=== PATIENT | male | born 1930 | race Caucasian/White ===

== ENCOUNTER 2018-03-28 13:51 | Inpatient (IN) ==
--- OUTSIDE RECORDS SUMMARY | 2018-03-28 15:39 | External Medical Summary | Encounter Summary ---
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); 03/28/2018 Encounter Health Patrice Buchanan MD Bladder tumor [address] [place] [id number] [place] [address] [place] [address] [phone] Social History Tobacco Use Types Packs/Day Years Used Date Never Smoker Smokeless Tobacco: Never Used Alcohol Use Drinks/Week oz/Week Comments No Sex Assigned at Date Recorded Not on file as of this encounter Last Filed Vital Signs Vital Sign Reading Time Taken Blood Pressure 108/46 03/28/2018 9:00 AM CDT Pulse 74 03/28/2018 9:00 AM CDT Temperature 36.9 C (98.5 F) 03/28/2018 9:00 AM CDT Respiratory Rate 16 03/28/2018 9:00 AM CDT Oxygen Saturation 99% 03/28/2018 9:00 AM CDT Inhaled Oxygen Concentration - - Weight 81 kg (178 lb 9.6 oz) 03/28/2018 12:08 AM CDT Height 182.9 cm (6') 03/28/2018 12:08 AM CDT Body Mass Index 24.22 03/28/2018 12:08 AM CDT in this encounter Discharge Summaries Patrice Campoverde MD - 03/24/2018 12:41 PM CDTFormatting of this note may be different from the original. [address] [id number] Discharge Summary Patient Name: Italo Tang : 1930 AGE: 88 y.o. PCP: No primary care provider on file. Reason for Admission: Bladder cancer (HCC) Admission date: 03/24/2018 Discharge date and time: Today's Date: 03/28/18 Admitting Physician: Patrice Campoverde MD Discharging Physician: Patrice Campoverde MD Discharge Diagnoses: Active Hospital Problems: Diagnosis Date Noted *Principal Problem*: Bladder cancer (HCC) [C67.9] 03/24/2018 Bladder tumor [D49.4] 03/02/2018 Tumors everywhere, in multiple tics, etc, resected large amounts 03/24/18 in OR Appears superficially invasive, but in diverticulum throughout the bladder. Resolved Hospital Problems Diagnosis Date Noted Date Resolved No resolved problems to display. Admission Condition: fair Discharge Condition: fair Consults: Physical therapy Procedures and therapies with patient's response: Hospital Course: Admitted for large TURBT as an outpatient. There was tumor everywhere, there werelarge tumors on the left bladder and multiple other tumors on the bladder wall proper and also in cellules and diverticuli of the bladder We resected them all. Initially, his urine was clear on leaving the operating room and he did not require CBI, but shortly thereafter he had some postop bleeding starting a few hours after resection requiring CBI for a couple days. He had one episode of hypotension on POD#1, with no clinical symptoms or tachycardia. STAT team evaluated and IVF bolus was all that was required to improve his blood pressure. He was clinically a bit dry on admission with very dark concentrated urine on presentation to the operating room. CBI was run for 2 days with no clot retention and it was then stopped. Hb drifted down a bit from his baseline, but he never had any clinicalsigns or symptoms of anemia. He was afebrile and otherwise VS were stable throughout stay. He wished to be made DNR and we did that for him. On postop day 3, he had CBI off for >24 hrs with no additional bleeding. VS were stable and he was tolerating PO well. Given difficult transfers and ambulation posotp, PT was consulted and recommended short term nursing or rehab placement. This was arranged and he was discharged in stable condition on 2017 Disposition / facility discharged to: Acute rehab [facility] Patient Instructions: Current Discharge Medication List START taking these medications Details docusate sodium (COLACE) 100 MG capsule Take 1 capsule (100 mg total) by mouth 2 (two) times daily. Qty: 30 capsule, Refills: 0 Associated Diagnoses: Bladder tumor; Malignant neoplasm of overlapping sites of bladder (HCC) HYDROcodone-acetaminophen (NORCO) 5-325 MG tablet Take 1 tablet by mouth every 6 (six) hours as needed for Moderate Pain. Do not exceed a daily dose of 4 tablets Qty: 30 tablet, Refills: 0 Associated Diagnoses: Bladder tumor; Malignant neoplasm of overlapping sites of bladder (HCC) oxybutynin (DITROPAN) 5 MG tablet Take 1 tablet (5 mg total) by mouth 3 (three) times daily as needed (bladder spasms). Qty: 30 tablet, Refills: 0 Associated Diagnoses: Bladder tumor; Malignant neoplasm of overlapping sites of bladder (HCC) phenazopyridine (PYRIDIUM) 100 MG tablet Take 1 tablet (100 mg total) by mouth 3 (three) times dailyas needed (buring or dysuria). Qty: 10 tablet, Refills: 0 Associated Diagnoses: Bladder tumor; Malignant neoplasm of overlapping sites of bladder (HCC) CONTINUE these medications which have NOT CHANGED Details levothyroxine (SYNTHROID) 150 MCG tablet Take 150 mcg by mouth every morning before breakfast. Activity: see sheet Diet: regular diet and encourage fluids Wound Care: see sheet, fisher care, irrigate PRN only at [facility] Follow-up with nirali in [facility] on Tuesday for possible cath removal, or if in rehab, follow up at [facility] if they are able to do fill and pull in [place] Instructions given to: Patient and family Patient teaching: See dc instructions Discharge Non-Med Orders None Total discharge time: >32 min in counseling and coordination of care Patrice Campoverde MD Electronic signature 03/27/2018 8:58 Freeman this encounter Discharge Instructions Rula Montes De Oca RN - 03/24/2018[facility] [address] [place], [place] Bladder Cancer Bladder cancer is an abnormal growth of tissue in the bladder. The bladder is the balloon-like sac in the pelvis. It collects and stores urine that comes from the kidneys through the ureters. The bladder wall is made of layers. If cancer spreads into these layers and through the wall of the bladder, it becomes more difficult to treat. What are the causes? The cause of this condition is not known. What increases the risk? The following factors may make you more likely to develop this condition: Smoking. Workplace risks (occupational exposures), such as rubber, leather, textile, dyes, chemicals, and paint. Being white. Your age. Most people with bladder cancer are over the age of 55. Being male. Having chronic bladder inflammation. Having a personal history of bladder cancer. Having a family history of bladder cancer (heredity). Having had chemotherapy or radiation therapy to the pelvis. Having been exposed to arsenic. What are the signs or symptoms? Initial symptoms of this condition include: Blood in the urine. Painful urination. Frequent bladder or urine infections. Increase in urgency and frequency of urination. Advanced symptoms of this condition include: Not being able to urinate. Low back pain on one side. Loss of appetite. Weight loss. Fatigue. Swelling in the feet. Bone pain. How is this diagnosed? This condition is diagnosed based on your medical history, a physical exam, urine tests, lab tests, imaging tests, and your symptoms. You may also have other tests or procedures done, such as: A narrow tube being inserted into your bladder through your urethra ( cystoscopy) in order to viewthe lining of your bladder for tumors. A biopsy to sample the tumor to see if cancer is present. If cancer is present, it will then be staged to determine its severity and extent. Staging is an assessment of: The size of the tumor. Whether the cancer has spread. Where the cancer has spread. It is important to know how deeply into the bladder wall cancer has grown and whether cancer has spread to any other parts of your body. Staging may require blood tests or imaging tests, such as a CT scan, MRI, bone scan, or chest X-ray. How is this treated? Based on the stage of cancer, one treatment or a combination of treatments may be recommended. The most common forms of treatment are: Surgery to remove the cancer. Procedures that may be done include transurethral resection and cystectomy. Radiation therapy. This is high-energy X-rays or other particles. This is often used in combination with chemotherapy. Chemotherapy. During this treatment, medicines are used to kill cancer cells. Immunotherapy. This uses medicines to help your own immune system destroy cancer cells. Follow these instructions at home: Take [id number] and prescription medicines only as told by your health care provider. Maintain a healthy diet. Some of your treatments might affect your appetite. Consider joining a support group. This may help you learn to cope with the stress of having bladder cancer. Tell your cancer care team if you develop side effects. They may be able to recommend ways to relieve them. Keep all follow-up visits as told by your health care provider. This is important. Where to find more information: [place] [employer]: www.cancer.org National Cancer [place] (NCI): www.cancer.gov Contact a health care provider if: You have symptoms of a urinary tract infection. These include: Fever. Chills. Weakness. Muscle aches. Abdominal pain. Frequent and intense urge to urinate. Burning feeling in the bladder or urethra during urination. Get help right away if: There is blood in your urine. You cannot urinate. You have severe pain or other symptoms that do not go away. Summary Bladder cancer is an abnormal growth of tissue in the bladder. This condition is diagnosed based on your medical history, a physical exam, urine tests, lab tests, imaging tests, and your symptoms. Based on the stage of cancer, surgery, chemotherapy, or a combination of treatments may be recommended. Consider joining a support group. This may help you learn to cope with the stress of having bladder cancer. This information is not intended to replace advice given to you by your health care provider. Make sure you discuss any questions you have with your health care provider. Document Released: 08/31/2004 Document Revised: 08/02/2017 Document Reviewed: [employer] Interactive Patient Education 2017 [employer]. Instructions for Care Following Transurethral Resection of Bladder Tumors You have just undergone a major operation. The healing process takes time and we would like for you to observe the following instructions during your initial recovery. This procedure may be done either inpatient or outpatient, depending on your specific situation. Post-op Treatments and Instructions Pain Control Our goal is to keep you comfortable. Your pain medication will be ordered as needed (prn). This is not a medication that is given to you on a schedule. If you are admitted after the procedure, ask yournurse for pain medication, as you need them. Sometimes you may experience bladder spasms, (the strong urge to urinate or strong lower abdominal cramping). You may be given antispasmodics ( bladder relaxant) either by mouth or rectally. After your catheter is removed, rectal antispasmodics are stopped to allow your bladder to return to normal tone. Your nurse will assess you frequently for pain or discomfort. However, please do not hesitate to ask for pain medication when you need it. Fisher Catheter There will be a catheter in your bladder. On some occasions, the catheter may be taped tightly to your leg or up towards your abdomen. This may be done to help control bleeding. The next morning after the doctor has seen you, depending on how clear or pink or red the urine is, the fisher may be removeddepending on how extensive the bladder surgery was. At times, you may need a catheter for a week ormore. If you are unable to urinate on your own after the catheter is removed, a catheter will be inserted to initiate the flow of urine. This catheter may or may not remain in your bladder. Intake and Output If admitted afterwards, your nurse will record fluids taken in and put out. Your may have a continuous bladder irrigation (CBI) through the catheter if you are an inpatient to help keep the urine clearand free of clots or tissue. This will be discontinued when your urine is clear. It generally will run through the night. If you do not have a continuous irrigation and should your urine become bloody,it may be necessary for the nurse to occasionally irrigate the fisher with a syringe to keep the urine clear. You may also be asked to drink about a glass of water every hour while awake to dilute the urine. All this intake and output will be recorded frequently. If you are sent home afterwards , drinklots of fluids to keep urine as clear as possible. Look at the urine in the tubing to determine clarity, not in the bag as this will always appear darker. Incentive Spirometry Purpose: To promote full lung expansion and prevent respiratory complications, which affect the bodytemperature. This will be used throughout your hospital stay. You may have been given any type of anesthesia, but all types can have an effect on your ability to take deep full breaths. Instructions for use: ? Seal the lips tightly around the mouthpiece, inhale naturally and hold your breath for 3 to 5 seconds to achieve lung expansion. Exhale and rest a few seconds. ? Each time you inhale, breath deeper trying to get the disk in the column to a higher volume and holding it as long as you can. Do this at least 10 times an hour while you are awake. ? Deep breathing exercises are also helpful. Simply take a regular breath through your mouth. Breathe out gently and completely. Then take a deep breath and hold it to the count of five. Exhale throughyour mouth and nose completely. Do this about 10 times each hour while you are awake. Sequential compression devices (SCD) Purpose: SCDs aid circulation by providing intermittent periods of compression on the lower extremities. Thisis a plastic sleeve wrapped around each leg connected to a machine that has been preset to automatically give the prescribed or recommended compression pressures that is needed to prevent blood clots from forming. This provides the same effect to your legs as walking. Instructions: The nurse will place the sleeve on both lower extremities when you return from surgery unless they have already been placed in the holding room. These must remain in place as long as you are in bed. Once ambulation begins, the SCDs are no longer necessary. There is also an exercise called plantar extension/ flexion that is important even when you are using the SCD and more important when you areup again. Plantar extension/flexion exercises Instructions: Begin with pointing your toes toward the bottom ofthe bed. Then point your toes up toward your face. Repeat this simple exercise at least 100 times anhour while awake. Ambulation: Purpose: Walking soon after surgery helps with early return of normal bowel function, promotes more effective breathing, mobilizes secretions. Improves circulation, prevents stiffness of joints, and relieves pressure. Instructions: You will be instructed to be up and about as soon as your urine begins to clear. Walking and being out of bed is good for your recovery, you should however, avoid strenuous activities asthis can start up bleeding. You will be encouraged to be out of bed at least 6 times a day, unless you are connected to CBI, or continuous bladder irrigation. This can be thought of as twice after breakfast, twice after lunch, and twice after dinner. If you wish to be up more often, that is okay. You can also continue the plantar extension/ flexion exercises as well. Diet: You will start out with liquids and progress to regular food as you tolerate it. Your IV will be sufficient enough to keep hydrated for a short time if you are admitted to the hospital. Special Considerations: The area of surgery in your bladder may take several weeks to heal. We ask that you follow these simple instructions after you are discharged. ? After the catheter is removed, it is very important to void on a regular basis to prevent the surgical area of the bladder from stretching open and causing bleeding. A good rule of thumb is to void about every 3 hours whether you feel like you have to or not. ? You may experience some temporary loss of control of urination or a dribbling of the urine after the catheter is removed. These symptoms are temporary and usually will resolve. Should this occur, it might be helpful to wear an incontinent pad. Sometimes it helps to contract and relax the sphincter frequently to re-establish urinary control, you may also try the prescribed medications to decrease spasms in the bladder. ? Avoid heavy lifting and strenuous exercises. Heavy lifting increases abdominal pressure, which could result in bleeding from your urinary tract. ? Avoid bending. This can also increase abdominal pressure. If you must pick something up, bend at your knees, not your waist. Stoop to strip picker the item. ? Avoid constipation. This will prevent unnecessary straining. To prevent constipation you can increase roughage in your diet, drink prune juice or orange juice, take milk of magnesia or some other over the counter laxative if necessary. You may be prescribed Colace when you are discharged. This is a stool softener, not a laxative. It is recommended that you drink 6-8 glasses of water a day to enhance the effectiveness of Colace. ? Try to avoid significant doses of Aspirin, Motrin, Advil, Aleve, or nonsteroidal analgesics for at4 weeks after your surgery as they may cause bleeding. If you have pain, simply take plain Tylenol.If you need to go back on blood thinners for other medical problems, please ask the doctor when thatis appropriate. ? Abstain from sexual activity for 4 weeks after surgery. ? You may see blood in the urine during the first several weeks after you are home. If so, lie down,rest, and drink fluids. The bleeding should diminish within a few hours. If not, call your doctor. ? Ask your doctor about when you may return to work. Reasons to call your doctor ? You have increased scrotal or penile swelling ? You have difficulty passing urine or a significant increase in clot passage, or your catheter becomes clogged. ? There is increased blood in your urine that does not stop with rest or increase in fluid intake ? You have pain that is not relieved by Tylenol or other prescribed pain medications ? You have chills or a fever greater than 101 degrees For urgent and emergent situations, call the number listed on your discharge paperwork. This will ring to the clinic during normal business hours and they will contact the physician for you. If after hours, call the ER or nurse line, and if an emergency, proceed to your nearest ER. Italo, your procedure went great, but there was a LOT of tumor everywhere. I resected everything that I could see. We will leave the catheter until next Tuesday and we will remove that in the clinic in [place]. Meds that I wrote you are NEEDED ONLY! Dont take them within 8 hrs of cath removal. Drink lots and make lots of pee. Fisher Catheter Care, Adult A Fisher catheter is a soft, flexible tube that is placed into the bladder to drain urine. A Fisher catheter may be inserted if: You leak urine or are not able to control when you urinate (urinary incontinence). You are not able to urinate when you need to (urinary retention). You had prostate surgery or surgery on the genitals. You have certain medical conditions, such as multiple sclerosis, dementia, or a spinal cord injury. If you are going home with a Fisher catheter in place, follow the instructions below. TAKING CARE OF THE CATHETER 1. Wash your hands with soap and water. 2. Using mild soap and warm water on a clean washcloth: Clean the area on your body closest to the catheter insertion site using a circular motion, moving away from the catheter. Never wipe toward the catheter because this could sweep bacteria up into the urethra and cause infection. Remove all traces of soap. Pat the area dry with a clean towel. For males, reposition the foreskin. 3. Attach the catheter to your leg so there is no tension on the catheter. Use adhesive tape or a leg strap. If you are using adhesive tape, remove any sticky residue left behind by the previous tape you used. 4. Keep the drainage bag below the level of the bladder, but keep it off the floor. 5. Check throughout the day to be sure the catheter is working and urine is draining freely. Make sure the tubing does not become kinked. 6. Do not pull on the catheter or try to remove it. Pulling could damage internal tissues. TAKING CARE OF THE DRAINAGE BAGS You will be given two drainage bags to take home. One is a large overnight drainage bag, and the other is a smaller leg bag that fits underneath clothing. You may wear the overnight bag at any time, but you should never wear the smaller leg bag at night. Follow the instructions below for how to empty,change , and clean your drainage bags. Emptying the Drainage Bag You must empty your drainage bag when it is ?- full or at least 2-3 times a day. 1. Wash your hands with soap and water. 2. Keep the drainage bag below your hips, below the level of your bladder. This stops urine from going back into the tubing and into your bladder. 3. Hold the dirty bag over the toilet or a clean container. 4. Open the pour spout at the bottom of the bag and empty the urine into the toilet or container. Donot let the pour spout touch the toilet, container, or any other surface. Doing so can place bacteria on the bag, which can cause an infection. 5. Clean the pour spout with a gauze pad or cotton ball that has rubbing alcohol on it. 6. Close the pour spout. 7. Attach the bag to your leg with adhesive tape or a leg strap. 8. Wash your hands well. Changing the Drainage Bag Change your drainage bag once a month or sooner if it starts to smell bad or look dirty. Below are steps to follow when changing the drainage bag. 1. Wash your hands with soap and water. 2. Pinch off the rubber catheter so that urine does not spill out. 3. Disconnect the catheter tube from the drainage tube at the connection valve. Do not let the tubestouch any surface. 4. Clean the end of the catheter tube with an alcohol wipe. Use a different alcohol wipe to clean the end of the drainage tube. 5. Connect the catheter tube to the drainage tube of the clean drainage bag. 6. Attach the new bag to the leg with adhesive tape or a leg strap. Avoid attaching the new bag too tightly. 7. Wash your hands well. Cleaning the Drainage Bag 1. Wash your hands with soap and water. 2. Wash the bag in warm, soapy water. 3. Rinse the bag thoroughly with warm water. 4. Fill the bag with a solution of white vinegar and water (1 cup vinegar to 1 qt warm water [.2 L vinegar to 1 L warm water]). Close the bag and soak it for 30 minutes in the solution. 5. Rinse the bag with warm water. 6. Hang the bag to dry with the pour spout open and hanging downward. 7. Store the clean bag (once it is dry) in a clean plastic bag. 8. Wash your hands well. PREVENTING INFECTION Wash your hands before and after handling your catheter. Take showers daily and wash the area where the catheter enters your body. Do not take baths. Replace wet leg straps with dry ones, if this applies. Do not use powders, sprays, or lotions on the genital area. Only use creams, lotions, or ointments as directed by your caregiver. For females, wipe from front to back after each bowel movement. Drink enough fluids to keep your urine clear or pale yellow unless you have a fluid restriction. Do not let the drainage bag or tubing touch or lie on the floor. Wear cotton underwear to absorb moisture and to keep your back tender pulp drier. SEEK MEDICAL CARE IF: Your urine is cloudy or smells unusually bad. Your catheter becomes clogged. You are not draining urine into the bag or your bladder feels full. Your catheter starts to leak. SEEK IMMEDIATE MEDICAL CARE IF: You have pain, swelling, redness, or pus where the catheter enters the body. You have pain in the abdomen, legs, lower back, or bladder. You have a fever. You see blood fill the catheter, or your urine is pink or red. You have nausea, vomiting, or chills. Your catheter gets pulled out. MAKE SURE YOU: Understand these instructions. Will watch your condition. Will get help right away if you are not doing well or get worse. This information is not intended to replace advice given to you by your health care provider. Make sure you discuss any questions you have with your health care provider. Document Released: 08/29/2006 Document Revised: 01/13/2015 Document Reviewed: [employer] Interactive Patient Education 2017 TPACK. in this encounter Medications at Time of Discharge Medication Sig. Disp. Refills Start Date End Date docusate sodium (COLACE) Take 1 capsule (100 30 capsule 0 03/24/2018 100 MG capsuleIndications: mg total) by mouth Bladder tumor, Malignant 2 (two) times neoplasm of overlapping daily. sites of bladder (HCC) HYDROcodone-acetaminophen Take 1 tablet by 30 tablet 0 03/24/2018 (NORCO) 5-325 MG mouth every 6 (six) tabletIndications: Bladder hours as needed for tumor, Malignant neoplasm Moderate Pain. Do of overlapping sites of not exceed a daily bladder (HCC) dose of 4 tablets levothyroxine (SYNTHROID) Take 150 mcg by 150 MCG tablet mouth every morning before breakfast. oxybutynin (DITROPAN) 5 MG Take 1 tablet (5 mg 30 tablet 0 03/24/2018 tabletIndications: Bladder total) by mouth 3 tumor, Malignant neoplasm (three) times daily of overlapping sites of as needed (bladder bladder (HCC) spasms). phenazopyridine (PYRIDIUM) Take 1 tablet (100 10 tablet 0 03/24/2018 100 MG tabletIndications: mg total) by mouth Bladder tumor, Malignant 3 (three) times neoplasm of overlapping daily as needed sites of bladder (HCC) (buring or dysuria). as of this encounter Progress Notes Brittney Ziegler RN - 03/28/2018 12:18 PM CDTThis nurse called [facility] for report and spoke with Hussein. All questions answered. Left phone number incase further questions.Brittney Ziegler RN - 03/28/2018 12:17 PM CDTPt discharging off the floor at 1218 via wheelchair. IV removed. Fisher intact. All belongings gathered and prescriptions and discharge paperwork sent with Pt son Winston.Areli Damico, CPTA - 03/28/2018 9:48 AM CDT [address] [address] Physical Therapy Patient Name: Italo Tang : 1930 Billing Number: [id number] Physician: Patrice Campoverde MD Admission Dx: Bladder cancer (HCC) Bladder cancer (HCC) Admit Date: 03/24/2018 Principal Problem: Bladder cancer (HCC) Today's Date: 03/28/2018 Physical Therapy Treatment Note S: Nursing gives permission to treat. Patient gives permission to treat. pt reports seeing spinning water/objects when entering room, declined them while walking. O: Precautions: fall risk and urinary catheter Mental Status: alert and oriented to: , month, pt thought it was 1987. knows Pain Ratin/10 Weight Bearing Status: no restrictions Bed Mobility/Transfers: Sit to stand: From recliner requiring minimal assist of 1 staff and requiring moderate assist of 1 staff and toilet requiring minimal assist of 1 staff and verbal cues for proper body mechanics and correct hand placement Stand to sit: To recliner requiring stand by assist (SBA) and toilet requiring minimal assist of 1 staff and no cues required for task Gait: Distance: 150' Device: front-wheeled walker Assist: SBA Stairs: Patient received instruction for stair negotiation to simulate home setting: no Exercise/ROM: seated hip flexion, long arch quad, hip abduction/adduction and ankle AROM Standardized Testing: N/A Patient left with call light placed within reach and pad alarm activated A: Pt ambulates with steady gait, needs help getting out of recliner. Pt did not need help standing from toilet, utilized grab bars. Pt pleasant throughout treatment. P: Continue plan of care. Goals: By the end of the patient's stay 1. Sit to Stand Goal: Patient will complete sit to stand with modified independence with front-wheeled walker to progress toward independent transfer. Progressing 03/28 2. Gait Goal: Patient will complete gait with modified independence on level surfaces with front-wheeled walker for 150 feet to progress toward independent gait. Progressing 03/28 3. Test Goal: Patient will improve score on AMPAC to 22/24 to demonstrate improved safety and independence with functional mobility tasks.. 4. Balance Goal: Patient will tolerate 3 minutes of static standing and dynamic standing balance activities with 1 upper extremity support while demonstrating good balance in order to improve independence with transfers and gait. Progressing 03/28 Discharge Recommendations: Plans: Inpatient Rehabilitation or Retirement Facility or Swingbed Projected equipment for d/c: front wheeled walker Transportation: Patient safe to transport by wheelchair. Today's charge: Therapeutic exercise 1 unit(s) Gait training 1 unit(s) Time spent with patient: [id number] Areli Damico CPTA 03/28/2018 9:48 Naty Armas OT - 03/28/2018 7:[address] [address] Occupational Therapy Patient Name: Italo F Clyde : 1930 Billing Number: [id number] Physician: Patrice Campoverde MD Admission Dx: Bladder cancer (HCC) Bladder cancer (HCC) Admit Date: 03/24/2018 Principal Problem: Bladder cancer (HCC) Today's Date: 03/28/2018 Occupational Therapy Evaluation Physician's Order: consult to OT to evaluate and treat safety deficits Primary diagnosis: Bladder Cancer Treatment diagnosis: S/P Large TURBT, 03/24/18 Date of onset: 03/24/2018 Precautions / Limitations: DNR, fall risk and urinary catheter Pain ratin/10 Patient stated goal: to go home Subjective / Past Medical History Italo Tang is a 88 y.o. male admitted for Bladder cancer (HCC). He has a past medical history of Bladder tumor, Blood transfusion without reported diagnosis, Contact dermatitis, Hearing loss, and Hypothyroidism. Patient gives permission to treat and Nursing gives permission to treat. Prior functioning level: Per patient, he has been living with spouse in a one-level house. He was independent with BADLs and does house chores but also says there is a woman that comes in 2x/week to help. 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 He reports to be driving still. He has no stairs to negotiate. He has access to laundry services provided by others. He used no assistive device for mobility. The bathroom is equipped with a walk-in shower and no grab bars. For toileting, he has a raised toilet. Patient currently uses/owns raised toilet seat. Pt sleeps in a lift recliner. Patient appears to be a questionable historian. No family present to verify the accuracy of the patient's answers. Objective Cognitive / Perceptual / Safety: Alert and oriented to person, situation, , month, location; states year as "1930", then "1959"; knows ruth; follows 1-step commands Vision / Hearing: vision: intact/functional and wears glasses for reading only and hearing: [place] Speech: intact Endurance: limited: reports fatigue Upper extremity ROM: functional bilateral upper extremities Upper extremity strength: functional bilateral upper extremities Coordination / Tone: functional Sensation: grossly intact Transfers: Mod assist for supine to sit and to scoot out to EOB; minimal assist for sit to stand; ambulated to bathroom and completed commode transfer with minimal assist ; ambulated back to recliner; pt unable tocontrol his descent into the chair; pt sleeps and spends a lot of time in his lift recliner. Balance: Sitting: good Standing: fair and needs minimal assist ADLs: Pt initially said he gets himself dressed without assist, then when asked to don /doff his socks, reports that his helps him; SBA to don gown; Fisher in place and pt is dependent for hygiene after BM; washed hands standing at sink with minimal assist for balance/safety; pt needed some set-up for breakfast ( opening packages). Testing Completed: [facility] Daily Activity Inpatient Short Form How much help from another person does the patient currently need ... 1. Putting on and taking off regular lower body clothing? 2 A lot 2. Bathing (including washing, rinsing, drying)? 2 A lot 3.Toileting, which includes using toilet, bedpan or urinal? 2 A lot 4. Putting on and taking off regular upper body clothing? 4 None 5. Taking care of personal grooming such as brushing teeth? 3 A little 6. Eating meals? 3 A little Total Score: 16 / 24 (53.32%) AM[facility] Functional Stages: Score 14-19: Score suggests some difficulty in the ability to perform daily tasks. The pt. may be struggling with things such as bathing and dressing. Housekeeping taks may be too difficult to perform. They may experience some difficulties with fine motor skills such as buttoning clothes, using utensils and combing hair. Treatment provided: evaluation Education provided: Fall prevention strategies Role of Occupational Therapy and OT Plan of Care Other Comments: returned patient to chair call light placed in reach pad alarm activated nurse (RN/CARPENTER SUPERVISOR) notified Patient's support person has demonstrated understanding of safe transfer techniques? No Patient/Family Discharge Plans: Inpatient Rehabilitation or Retirement Facility or Swingbed Assessment / Recommendations Patient presents with decreased strength, decreased safety, decreased ability to perform self-cares,decreased ability to perform functional transfers, general debilitation, decreased endurance, decreased mobility, decreased cognitive status and increased risk for falls and is appropriate for skilled Occupational Therapy to provide Self-Care Management Training, functional transfer training, adaptiveequipment instruction, endurance activities, safety training, patient/family education, therapeutic exercises, strengthening and cognitive/perceptual retraining. Occupational Therapy Discharge Recommendations: Plan: Inpatient Rehabilitation or Retirement Facility or Swingbed; pt not safe for D/C home at this time Home Needs: with assistance/supervision recommended at this time for activities of daily living and instrumental activities of daily living: money management, medication management, housekeeping, transportation, meal preparation and grocery shopping Projected equipment for d/c: Will continue to assess. Plan Expected treatment frequency of 5 times per week as staffing/scheduling allows until discharged or until goals are met. Patient is aware of and agrees with stated treatment plan and goals? Yes Patient will have support person available post discharge? Unknown Short-term Goals: (Time frame=Length of hospital stay) 1. Pt will complete LE dressing modified independent with use of adaptive equipment as needed 2. Pt will complete toilet transfer modified independent with good safety 3. Pt will be modified independent with toileting 4. Pt will stand at sink for all grooming tasks with good safety 5. Pt will tolerate BUE graded exercise to increase strength and endurance for ADLs 6. Pt will be SBA for shower transfer with good safety 7. Patient complete the Edward Cognitive Assessment to further evaluate cognition 8. Pt will increase AM-PAC Daily Living score to at least 23 out of 24 or no more than 15.86% impairment to increase patient's self care skills Charges/Time:([id number]) OT eval moderate complex Naty Tripathi OTR/L Electronically Signed 03/28/2018 8:21 AM Valeria Carballo RN - 03/27/2018 8:07 PM CDTLeadership rounds complete. Pt sitting up in chair. No questions or concerns at this time.Rula Montes De Oca RN - 03/27/2018 4:[address] [address] Case Management / Social Work Initial Assessment Patient Name: Italo Tang : 1930 Primary Care Physician: Judson Iniguez APRN Attending Provider: Patrice Campoverde MD Admission Date: 03/24/2018 Patient Status: Inpatient Anticipated Discharge Needs: 1. Pt will need rehab @ d/c - referral faxed to [facility] Discharge Plan: rehab Support system at home: Spouse/significant other Who is next of kin? - Linda Homebound status: No Does the patient drive? Yes Transportation to medical appointments? Yes Who transports you to medical appointments?: self or family Who will provide discharge transportation? facility Pharmacy patient uses: [facility] Method of prescription payment: Insurance Last reported hospitalization: None Enhanced Risk Score Is it hard for you to pay for: Housing: No Utilities: No Medication: No Food: No Medical Care: No Is it hard for you to get: Transportation for your medical care: No Other Social and Behavioral Determinants: Education Level: High School Graduate Do you exercise? Yes In a typical week, how often do you get together with friends or relatives? 5 or more How often do you attend orthodox services, social groups or clubs? Once a week ([employer]) Living arrangements prior to hospitalization: Home SNF stay in the last 30 days? No Home Health or Hospice Services: No Patient needs assistance with the following ADLs: In/Out of Bed, Ambulating Recent Fall History: Have you fallen in the past 12 months?: Yes Have you fallen 2 or more times ? : No Have you been injured from any falls in the past 12 months?: No Durable medical equipment: Assistive devices: Walker Nebulizer: No Other equipment: No Patient uses CPAP/BIPAP at home? No Patient uses home oxygen? No DME agency: Not applicable Infusion companies: Not applicable Advanced Directives (for Healthcare): Patient has healthcare directive? No, patient does not have an advance directive for healthcare treatment Information provided on healthcare directives? No Information on healthcare directives requested? No Healthcare agent appointed: No Healthcare agents name: n/a Healthcare agents phone number: n/a Social, community, recreational activities and spiritual involvement: Pt reports he lives @ home with his . Pt has 1 son Winston in [place] & a son in [place]. Pt reports his grandson Rajesh retired from 20 years and works with him and is very supportive. 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 What basic needs are being met (food, alf, safety, medication, etc.)? Yes, pt reports his basic needs are met. Note psychological and psychiatric functioning and background: Pt denies. Strengths and resources: Family. Pt is very pleasant, cooperative & independent @ baseline. Information obtained from: Patient Time Spent: Time spent in contact with patient: 15 Time spent performing coordination of care: 5 Total time spent: 20 Rula Montes De Oca RN Electronically Signed 03/27/2018 4:48 PM Esha Barajas LMSW - 03/27/2018 12:42 PM CDT Today's Date: 03/28/2018 Time: 12:27 PM Notes: Faxed referral, AVS, medication list to [facility] at [phone]. Provided pt'sson with hand-written address to take with him with address for [facility]. Pt discharged with son, who is transporting him to Acute Rehab. Communicated with: Winston-son; faxed referral, AVS, meds Discharge Plan: Facility or Service: [facility] Esha Barajas LMSW Electronically Signed Today's Date: 03/27/2018 Time: 1:00 PM Notes: NATHEN met with pt's son, Winston, to discuss Rehab placement & that once placement could be found/pt accepted, his father could be discharged. Informed Winston that pt did not meet criteria for admission to [facility] SNF at this time, but that with permission, SW could pursue AR placement either in [place] or at nearest facility to [place], [place]. Winston would [place] the [facility] [place] [facility] (37 miles from [place], [place]). NATHEN asked if TERRIE BLAKELY CM, could assist in making phone call to [facility] to inquire if facility had openings & send referral information if necessary. Communicated with: Winston-pt's son, ZORA-TERRIE PIÑA Discharge Plan: Facility or Service: placement pending Esha Barajas LMSW Electronically Signed Today's Date: 03/27/2018 Time: 9:15 AM Notes: Dr. Campoverde left message for NATHEN to discuss discharge & that pt meets all Medicare guidelines & criteria to discharge to Rehab today. Pt's son, Winston, would like for pt to discharge to [facility] SNF as pt's spouse is currently there. NATHEN returned call to Dr. Campoverde to discuss discharge plan. He states that pt would be medically stable for discharge today. SW informed him that pt would not qualify to discharge to SNF today & maybe accepted as early as 03/29, otherwise, SW could pursue Acute Rehab placement for today if pt's family agreeable. Dr. Campoverde states that he would be fine with SNF or Acute Rehab for pt & would like for SW to reach out to pt's son, Winston, to discuss his preference as he may be agreeable to AcuteRehab in [place] because he lives in [place], but he may want pt closer to his home. Communicated with: Dr. Camopverde Discharge Plan: Facility or Service: TBD Esha Barajas LMSW Electronically Signed Naty Padilla, PT - 03/27/2018 9:[address] [address] Physical Therapy Patient Name: Italo Tang : 1930 Billing Number: [id number] Physician: Patrice Campoverde MD Admit Date: 03/24/2018 Today's Date: 03/27/2018 Physical Therapy Evaluation Note Date of onset: 03/24/2018 Subjective: Nursing gives permission to treat. Patient gives permission to treat. Italo Tang is a 88 y.o. male admitted with Bladder cancer (HCC). He underwent Large TURBT on 03/24/18. Physical therapy referral due to unsteady gait and generalized weakness. He has a past medical history of Bladder tumor, Blood transfusion without reported diagnosis, Contact dermatitis, Hearing loss, and Hypothyroidism.. Baseline Activity Level: Patient lives with spouse in a one-level house with no stairs to negotiate. Patient reports that he was previously independent with transfers and gait and driving. He notes that he sleeps in a lift chair. Required assistance with dressing and IADLS from spouse. Uses no assistive device for gait. He has a front wheeled walker that he reports he uses sometimes. Patient reports 1 fall in the last year. *Patient was clearly confused during PT evaluation. Information regarding prior level of function may not be completely accurate. No family present to verify. Precautions: fall risk, IV equipment and urinary catheter Weight Bearing Status: No restrictions Mental Status: alert and confused. Oriented to name, birthdate, and city. Not oriented to [facility]. Vision: intact, reading glasses Hearing: impaired both ears. Patient wearing hearing aide in R ear only. Speech: intact and slurred Range of Motion: Lawson. feet and ankles limited by edema. Lawson. ankle dorsiflexion to grossly neutral. [place]. knees and hip remain about 20 degrees flexed when standing and ambulating. Strength: Lawosn. LEs grossly 3+/5 Neuro: grossly intact Pain Ratin/10 Bed Mobility/Transfers: Rolling left: minimum assist of 1 persons Scooting: minimum assist of 1 persons Supine to sit: moderate assist of 1 persons Sit to stand: minimum assist of 1 persons Stand to sit: minimum assist of 1 persons Gait: Distance: 30 feet Device: front-wheeled walker Assist: minimal assist of 1 staff with 2nd person managing equipment Gait deviations: decreased rosalie, decreased step length, deficits during turning, excessive trunk flexion and shuffling gait Stairs: not tested Posture: forward, rounded shoulders and kyphotic Sitting Balance: Static: fair: Patient able to maintain balance with handhold support; may require occassional minimal assistance Dynamic: fair: Patient accepts minimal challenge; able to maintain balance while turning head/trunk Standing Balance: Static: fair: Patient able to maintain balance with handhold support; may require occassional minimal assistance Dynamic: poor: Patient unable to accept challenge or move without loss of balance Other: Patient is not safe to discharge home with only spouse support with his current deficits. He requires physical assist for transfers and ambulation at this time and is a very high fall risk. Placement is recommended prior to discharge. Objective Test Performed: AM-PAC Basic Mobility Inpatient Short Form How much difficulty does the patient have ... 1. Turning over in bed (including adjusting bedclothes, sheets, and blankets)? 3 A little 2. Sitting down on and standing up from a chair with arms (wheelchair, bedside commode, etc.)? 3 A little 3. Moving from lying on back to sitting on the side of the bed? 2 A lot How much help from another person does the patient currently need .... 1. Moving to and from a bed to a chair (including wheelchair)? 2 A lot 2. Need to walk in hospital room? 2 A lot 3. Climbing 3-5 steps with a railing? 2 A lot Total Score: 14 / 24 (61.29% impaired) Additional Comments: patient remained in chair alarm set call light placed in reach nurse (RN/CARPENTER SUPERVISOR) notified that patient seemed to be having difficulty swallowing his eggs and coffee at end of PT evaluation. Assessment: Patient presents with decreased strength, decreased ROM, difficulty walking, gait abnormality, generalized weakness, impaired mobility and impaired balance. Patient Goal: Patient did not state Goals: By the end of the patient's stay 1. Sit to Stand Goal: Patient will complete sit to stand with modified independence with front-wheeled walker to progress toward independent transfer. 2. Gait Goal: Patient will complete gait with modified independence on level surfaces with front-wheeled walker for 150 feet to progress toward independent gait. 3. Test Goal: Patient will improve score on AMPAC to 22/24 to demonstrate improved safety and independence with functional mobility tasks.. 4. Balance Goal: Patient will tolerate 3 minutes of static standing and dynamic standing balance activities with 1 upper extremity support while demonstrating good balance in order to improve independence with transfers and gait. Patient agreeable to physical therapy goals: yes Discharge Recommendations: Plans: Inpatient Rehabilitation or Retirement Facility or Swingbed Projected equipment for d/c: front wheeled walker and pt. has this equipment at home Transportation: Patient safe to transport by wheelchair. Plan: Patient to be seen once daily as staffing and scheduling allows for bed mobility , transfers, gait, ROM, strengthening, balance, neuromuscular re-education and patient/family education. Today's Charge: PT eval moderate complex Medicare Functional Reporting: Mobility: Walking & Moving Around: (Current) G8978 modifier CL (60-79%) and (Goal) G8979 modifier CI (1-19%), based on clinical judgment and objective testing. Time spent with patient: Naty Padilla, PT 03/27/2018 9:05 Patrice Johnson MD - 03/27/2018 8:33 AM CDTFormatting of this note may be different from the original. [address] [address] Urology Progress Note 03/27/2018 Patient Name: Italo Tang : 1930 PCP: No primary care provider on file. Admission Date: 03/24/2018 LOS: 0 days No chief complaint on file. Subjective: No new events. AFVSS. PT unable to assess yesterday. Patient with difficult transferand ambulation and thus was not safe for d/c yesterday. annabelle PO, OOb with assistance only. Still with 2:1 assist to get out of bed this AM. He has no complaints. Had a BM yesterday x 2, no pain. Urine dark, but not active bleeding, CBI off for more than 24 hrs. With no clots or other issues. Scheduled Meds: levothyroxine 150 mcg Oral AC BK Continuous Infusions: sodium chloride 75 mL/hr (03/27/18 0249) PRN Meds: acetaminophen, fentaNYL, HYDROcodone-acetaminophen OR oxyCODONE OR traMADol, morphine, ondansetron, white petrolatum Objective: Vitals signs in last 12 hours: Patient Vitals for the past 12 hrs: BP Temp Pulse Resp SpO2 Height Weight 03/27/18 0300 129/63 98.2 F (36.8 C) 70 18 99 % - - 03/27/18 0027 - - - - - 1.829 m (6' 0.01") 80.6 kg (177 lb 9.6 oz) 03/26/18 2115 135/76 98 F (36.7 C) 80 18 100 % - - Admission Weight: 77.1 kg (170 lb) Recent Weights: Patient Vitals for the past 72 hrs: Weight 03/27/18 0027 80.6 kg (177 lb 9.6 oz) 03/26/18 0323 80.6 kg (177 lb 12.8 oz) 03/25/18 0620 83.1 kg (183 lb 3.2 oz) Intake/Output: 03/26 0701 - 03/27 0700 In: 2894 [P.O.:1240; I.V.:1654] Out: 3250 [Urine:3250] Intake/Output this shift: No intake/output data recorded. Urethral Catheter 03/24/18 Triple-lumen (3-way) 24 Fr.-Output (mL): 1350 mL Labs: Recent Labs Lab 03/26/18 0703 03/25/18 0825 03/24/18 1848 WBC 9.7 8.8 6.0 HGB 8.5* 10.3* 12.0* HCT 26.5* 32.2* 37.9* PLT 140* 197 199 Recent Labs Lab 03/26/18 0703 03/25/18 0825 NA 136 138 K 4.1 5.0* CL 108 109 CO2 23 23 BUN 31* 36* CREATININE 0.87 1.17 GLU 98 112* CALCIUM 7.9* 8.5* Imaging: None new Physical Exam: General: Adult male, cooperative, no distress, appears stated age Lungs: Clear to auscultation bilaterally, respirations unlabored Heart: Regular rate and rhythm, no murmurs, rubs, or gallop Abdomen: Soft, non-tender, non-distended, bowel sounds present /Pelvic: Fisher patent, dark, color of old clot, no sign of active bleeding. Ext: No edema, DUNN Neuro: Non-focal Psych: Normal affect Assessment: Bladder cancer (HCC) postop anemia, baseline weakness and advanced age Active Hospital Problems: Diagnosis Date Noted *Principal Problem*: Bladder cancer (HCC) [C67.9] 03/24/2018 Bladder tumor [D49.4] 03/02/2018 Tumors everywhere, in multiple tics, etc, resected large amounts 03/24/18 in [place] Appears superficially invasive, but in diverticulum throughout the bladder. Resolved Hospital Problems Diagnosis Date Noted Date Resolved No resolved problems to display. Plan: Clinically, he is stable, but still not mobile and independent enough for home discharge in my opinion. He has no pain, annabelle PO and no other acute medical issues. Per nursing, family requested [place] [facility] for swing bed or similar. That is close to his wifeand home I called [facility] in [place] and they have available SNF beds. Will await PT opinion this AM, but my suspicion is that they will have the same recommendations for SNF or rehab for a few days or a week.No clinical signs of anemia or other problems, thus I did not repeat lab this morning. No sign of bleeding actively. He will have darker urine for a bit, but as long as there is no bright red or other signs of active bleeding, that is OK and WNL for his condition. He had tumor everywhere and I think that I resected it all. Will keep fisher likely until Tuesday or so, and attempt fill and pull /fisher removal at that time. Patrice Campoverde MD Electronic Signature 03/27/2018 8:50 AM Patrice Campoverde MD - 03/26/2018 9:44 AM CDTFormatting of this note may be different from the original. [address] [address] Urology Progress Note 03/26/2018 Patient Name: Italo Tang : 1930 PCP: No primary care provider on file. Admission Date: 03/24/2018 LOS: 0 days No chief complaint on file. Subjective: Kept overnight again due to CBI requirements. AFVSS, only pain is cath irritation in penis. Lab reviewed, lytes stable, Hb decreased today. No symptoms. Annabelle PO, OOB minimal, not steady on feet. Difficulty transferring. Some of this is baseline for him. CBI was shut off at [place] last PM. Urine dark red, but not active bleeding, looks like old clot. He was a little confused this AM early, but now is oriented. Scheduled Meds: levothyroxine 150 mcg Oral AC BK Continuous Infusions: sodium chloride 75 mL/hr (03/25/18 2343) PRN Meds: acetaminophen, fentaNYL, HYDROcodone-acetaminophen OR oxyCODONE OR traMADol, morphine, ondansetron, phenazopyridine Objective: Vitals signs in last 12 hours: Patient Vitals for the past 12 hrs: BP Temp Pulse Resp SpO2 Weight 03/26/18 0900 115/52 97.7 F (36.5 C) 81 16 100 % - 03/26/18 0323 134/84 98 F (36.7 C) 88 16 98 % 80.6 kg (177 lb 12.8 oz) 03/25/18 2200 131/62 98.8 F (37.1 C) 100 18 95 % - Admission Weight: 77.1 kg (170 lb) Recent Weights: Patient Vitals for the past 72 hrs: Weight 03/26/18 0323 80.6 kg (177 lb 12.8 oz) 03/25/18 0620 83.1 kg (183 lb 3.2 oz) 03/24/18 0844 77.1 kg (170 lb) Intake/Output: 03/25 0701 - 03/26 0700 In: 2530 [P.O.:780; I.V.:1750] Out: 4000 [Urine:4000] Intake/Output this shift: I/O this shift: In: 10 [I.V.:10] Out: - Labs: Recent Labs Lab 03/26/18 0703 03/25/18 0825 03/24/18 1848 WBC 9.7 8.8 6.0 HGB 8.5* 10.3* 12.0* HCT 26.5* 32.2* 37.9* PLT 140* 197 199 Recent Labs Lab 03/26/18 0703 03/25/18 0825 NA 136 138 K 4.1 5.0* CL 108 109 CO2 23 23 BUN 31* 36* CREATININE 0.87 1.17 GLU 98 112* CALCIUM 7.9* 8.5* Imaging: None new Physical Exam: General: Adult male, cooperative, no distress, appears stated age Lungs: Clear to auscultation bilaterally, respirations unlabored Heart: Regular rate and rhythm, no murmurs, rubs, or gallop Abdomen: Soft, non-tender, non-distended, bowel sounds present /Pelvic: [address], urine dark brownish red in tubing, instantly clears with CBI run, it is off though. No CVATTP, no clots. UOP OK Ext: No edema, DUNN Neuro: Non-focal Psych: Normal affect Assessment: Bladder cancer (HCC), large resection with postop hematuria POD#2, unsteady Active Hospital Problems: Diagnosis Date Noted *Principal Problem*: Bladder cancer (HCC) [C67.9] 03/24/2018 Bladder tumor [D49.4] 03/02/2018 Tumors everywhere, in multiple tics, etc, resected large amounts 03/24/18 in [place] Appears superficially invasive, but in diverticulum throughout the bladder. Resolved Hospital Problems Diagnosis Date Noted Date Resolved No resolved problems to display. Plan: D/w patient and I left a message with his son. Surgically, I dont think that he is having bleeding, and his VS are stable. He is barely able to transfer and cannot do so without help. We will have PT evaluate. He is a bit unsteady at baseline jeanine little debilitated after major tumor resection with some blood loss. No symptoms of anemia, and no conjunctival pallor and thus I dont think that he needs blood, but he is weak. Clinically, I think that he eyeballs better today. Optimally, he likely needs a short term rehab / nursing stay, but he wants to go home. We will see what PT thinks and if hey can get him up and assess his ability for ADL's and ambulation. If they recommend short term nursing, [facility] be able to accomodate. But likely that will have to be arranged tomorrow. CBI can stay off. I encouraged him in oral fluids, but he is not drinking a lot , so will keep him on low IVF to keep UOP up and help the bladder heal and prevent clot formation. Catheter to stay until at least . I am in [facility] on Tuesday, so can re-assess and remove fisher at that time if indicated. I asked nursing to call me with PT recs once they visit and we will see what we can arrange pending their recommendations. Patrice Campoverde MD Electronic Signature 03/26/2018 9:44 AM Patrice Campoverde MD - 03/25/2018 9:54 AM CDTFormatting of this note may be different from the original. [address] [address] Urology Progress Note 03/25/2018 Patient Name: Italo Tang : 1930 PCP: No primary care provider on file. Admission Date: 03/24/2018 LOS: 0 days No chief complaint on file. Subjective: No complaints. No pain, AFVSS, still with hematuria on CBI but a lot less red than yesterday. Annabelle PO liquids, but not hungry, K a bit high. Scheduled Meds: levothyroxine 150 mcg Oral AC BK Continuous Infusions: lactated ringers 75 mL/hr (03/25/18 0827) PRN Meds: acetaminophen, fentaNYL, HYDROcodone-acetaminophen OR oxyCODONE OR traMADol, morphine, ondansetron, phenazopyridine Objective: Vitals signs in last 12 hours: Patient Vitals for the past 12 hrs: BP Temp Pulse Resp SpO2 Weight 03/25/18 0900 109/49 96.8 F (36 C) 64 - 95 % - 03/25/18 0620 - - - - - 83.1 kg (183 lb 3.2 oz) 03/25/18 0327 101/51 97.9 F (36.6 C) 85 16 96 % - Admission Weight: 77.1 kg (170 lb) Recent Weights: Patient Vitals for the past 72 hrs: Weight 03/25/18 0620 83.1 kg (183 lb 3.2 oz) 03/24/18 0844 77.1 kg (170 lb) Intake/Output: 03/24 0701 - 03/25 0700 In: 2379 [I.V.:2379] Out: 6360 [Urine:6360] Intake/Output this shift: I/O this shift: In: 20 [I.V.:20] Out: 525 [Urine:525] Labs: Recent Labs Lab 03/25/18 0825 03/24/18 1848 03/24/18 1558 WBC 8.8 6.0 4.5 HGB 10.3* 12.0* 13.3* HCT 32.2* 37.9* 42.3 PLT 197 199 172 Recent Labs Lab 03/25/18 0825 NA 138 K 5.0* CL 109 CO2 23 BUN 36* CREATININE 1.17 GLU 112* CALCIUM 8.5* Imaging: None new Physical Exam: General: Adult male, cooperative, no distress, appears stated age Lungs: Clear to auscultation bilaterally, respirations unlabored Heart: Regular rate and rhythm, no murmurs, rubs, or gallop Abdomen: Soft, non-tender, non-distended, bowel sounds present /Pelvic: [address] with CBI going and nearly clear in the tubing. I turned it down, no bladder TTP and no CVATTP Ext: LE edema unchanged from admit Neuro: Non-focal Psych: Normal affect Assessment: Bladder cancer (HCC), postop hematuria. Large tumors post op day #1 Active Hospital Problems: Diagnosis Date Noted *Principal Problem*: Bladder cancer (HCC) [C67.9] 03/24/2018 Bladder tumor [D49.4] 03/02/2018 Tumors everywhere, in multiple tics, etc, resected large amounts 03/24/18 in [place] Appears superficially invasive, but in diverticulum throughout the bladder. Resolved Hospital Problems Diagnosis Date Noted Date Resolved No resolved problems to display. Plan: Everything looks better today. VSS, hematuria less. I turned down the CBI. Plan for today is to see how he does with OOB and advance diet, he is not eating much. Will also see if we can get rid of CBI by this PM. He had more tumor resected than any other case I have done this year, and he is old and fragile and [place] over [place]. The optimal thing would be to keep for additional overnight. I am not convinced this AM that he will be stable outpatient without problems yet. If everything is not perfect in his case by the afternoon, will keep overnight and repeat AM lab. Also switch to NS from as K is just a touch high. Patrice Campoverde MD Electronic Signature 03/25/2018 9:54 AM Christine Handy RN - 03/25/2018 8:[address] [address] Patient Name: Italo Tang : 1930 Primary Care Physician: No primary care provider on file. Admission Date: 03/24/2018 STAT CALL 12 HOUR PROGRESS NOTE NOTE: Spoke with patient and primary RN at the bedside. Patient states he is feeling much better since last night. He is alert and oriented x 4. No complaints at this time. CBI running much slower than previous rate. Blood pressure remains stable throughout the night. Call rapid response with any further questions or concerns. Christine Handy 03/25/2018 3:47 PM Patrice Campoverde MD - 03/24/2018 7:30 PM CDTFormatting of this note may be different from the original. [address] [address] Urology Progress Note 03/24/2018 Patient Name: Italo Tang : 1930 PCP: No primary care provider on file. Admission Date: 03/24/2018 LOS: 0 days No chief complaint on file. Subjective: Called to re-eval. Patient had hypotension. I ordered a bolus. Pressure responded. He is lucid and did not have tachycardia. He has no complaints at this time other than some pelvic pressure. Cath output MUCH less bloody than an hour or two ago. Seen with the nursing staff. He wants to be DNR and we went over this at length. Scheduled Meds: [START ON 03/25/2018] levothyroxine 150 mcg Oral AC BK Continuous Infusions: lactated ringers lactated ringers 75 mL/hr (03/24/181922) PRN Meds: acetaminophen, fentaNYL, HYDROcodone-acetaminophen OR oxyCODONE OR traMADol, morphine, ondansetron, phenazopyridine Objective: Vitals signs in last 12 hours: Patient Vitals for the past 12 hrs: BP Temp Pulse Resp SpO2 Height Weight 03/24/18 1857 129/73 - 92 - 98 % - - 03/24/18 1842 106/61 - 87 - - - - 03/24/18 1840 (!) 88/46 - 78 - - - - 03/24/18 1836 (!) 87/45 - 77 - 98 % - - 03/24/18 1835 105/49 97.3 F (36.3 C) 75 16 98 % - - 03/24/18 1830 (!) 72/45 - 75 - - - - 03/24/18 1824 (!) 72/43 - - - - - - 03/24/18 1822 (!) 65/44 - - - - - - 03/24/18 1818 (!) 66/37 - 78 - - - - 03/24/18 1815 (!) 72/44 97.3 F (36.3 C) 75 - - - - 03/24/18 1813 (!) 66/37 - 71 - - - - 03/24/18 1812 (!) 72/44 - 71 - - - - 03/24/18 1800 (!) 60/37 - 75 - - - - 03/24/18 1730 106/61 - - - - - - 03/24/18 1647 (!) 141/82 - 87 - 97 % - - 03/24/18 1546 134/67 - 75 - 93 % - - 03/24/18 1533 (!) 143/85 97.5 F (36.4 C) 80 14 100 % - - 03/24/18 1515 136/67 - 70 - - - - 03/24/18 1447 (!) 150/71 97.5 F (36.4 C) 72 12 97 % - - 03/24/18 1425 131/72 98.4 F (36.9 C) 66 (!) 11 94 % - - 03/24/18 1420 137/69 - 68 (!) 10 93 % - - 03/24/18 1412 - 98.7 F (37.1 C) - - - - - 03/24/18 1410 (!) 184/80 - 65 (!) 11 97 % - - 03/24/18 1358 136/74 - 63 (!) 9 93 % - - 03/24/18 1341 (!) 162/89 - 68 (!) 10 95 % - - 03/24/18 1325 (!) 168/83 - 69 12 95 % - - 03/24/18 1324 (!) 168/83 98.6 F (37 C) 69 12 97 % - - 03/24/18 1310 (!) 145/74 - 67 (!) 11 94 % - - 03/24/18 1255 (!) 158/82 - 67 13 95 % - - 03/24/18 1245 134/73 - 61 13 95 % - - 03/24/18 1239 140/75 99.1 F (37.3 C) - 13 97 % - - 03/24/18 0844 138/71 97 F (36.1 C) 65 16 97 % 1.829 m (6') 77.1 kg (170 lb) Admission Weight: 77.1 kg (170 lb) Recent Weights: Patient Vitals for the past 72 hrs: Weight 03/24/18 0844 77.1 kg (170 lb) Intake/Output: No intake/output data recorded. Intake/Output this shift: I/O this shift: In: - Out: 575 [Urine:575] Labs: Recent Labs Lab 03/24/18 1848 03/24/18 1558 WBC 6.0 4.5 HGB 12.0* 13.3* HCT 37.9* 42.3 PLT 199 172 Imaging: None new Physical Exam: General: Adult male, cooperative, no distress, appears stated age Lungs: Clear to auscultation bilaterally, respirations unlabored Heart: Regular rate and rhythm, no murmurs, rubs, or gallop Abdomen: Soft, non-tender, non-distended, bowel sounds present /Pelvic: CBI with cigar bander hand red, small clots, but much better than before, less blood. Ext: Bilateral LE edema unchanged Neuro: Non-focal Psych: Normal affect Assessment: Bladder cancer (HCC) post resection of multiple tumors, hematuria on CBI Active Hospital Problems: Diagnosis Date Noted *Principal Problem*: Bladder cancer (HCC) [C67.9] 03/24/2018 Bladder tumor [D49.4] 03/02/2018 Tumors everywhere, in multiple tics, etc, resected large amounts 03/24/18 in [place] Appears superficially invasive, but in diverticulum throughout the bladder. Resolved Hospital Problems Diagnosis Date Noted Date Resolved No resolved problems to display. Plan: He seems fine now. BP responded to bolus and UOP calcuates OK with CBI. No tachy. No symptoms, repeat Hb a little lower, but with bolus, etc, likely some dilutional effect as well as postop blood loss. He wants to be DNR and we discussed this. He does not want heroic measures, intubation or defibrillation. He states that he has lived a good life. I told him I dont expect him to pass, but if he does we will respect his wishes. Since less bleeding, we will get AM lab. He is thirsty, so he can drink. I dont expect return to OR for bleeding as it is slowing just with CBI, but he had no bleeding initially in PACU either, so we will see. Patrice Campoverde MD Electronic Signature 03/24/2018 7:30 PM Naty Patterson RN - 03/24/2018 6:39 PM CDTFormatting of this note may be different from the original. [address] [address] Patient Name: Italo Tang : 1930 Primary Care Physician: No primary care provider on file. Admission Date: 03/24/2018 STAT TEAM CALL NOTE SITUATION: Pt her for Transurethral resection of bladder tumors. Pt came back from surgery with CBI running. Primary RN states the output has been bright red blood and Dr Campoverde is aware. Pt SBP have dropped to 70's. ASSESSMENT: Pt sleeping upon this RN arrival. SBP remains low pt easily arouses and is A/O. A 1L bolus of LR is runnign per Dr Campoverde. Will order a CBC to see what current hemoglobin is after the increased bloody output. At 1558 today Hgb was 13.3. Dr Campoverde is in house and plans to come to see pt. EVENT SUMMARY: Pt SBP up to the low 100's. Will wait to see what Hgb is. 129/73 by Theodora Alejandro RN at 03/24/18 1857 106/61 by Ricarda Olivares RN at 03/24/18 1842 88/46 by Ricarda Olivares RN at 03/24/18 1840 87/45 by Ricarda Olivares RN at 03/24/18 1836 105/49 by Ricarda Olivares RN at 03/24/18 1835 72/45 by Ricarda Olivares RN at 03/24/18 1830 72/43 by Ricarda Olivares RN at 03/24/18 1824 65/44 by Ricarda Olivares RN at 03/24/18 182 66/37 by Ricarda Olivares RN at 03/24/18 1818 72/44 by Ricarda Olivares RN at 03/24/18 1815 66/37 by Theodora Alejandro RN at 03/24/18 1813 72/44 by Theodora Alejandro RN at 03/24/18 1812 60/37 by Ricarda Olivares RN at 03/24/18 1800 106/61 by Elise Pt pressures have responded to the LR bolus Rapid Response Team arrival time: 1816 Provider at bedside time: Rapid Response Team departure time: 1854 Naty Patterson 03/24/2018 6:39 PM Ricarda Olivares, TERRIE - 03/24/2018 4:[address] Nirali called for update. Aware of cbc results, vitals, and CBI running fast. Will continue to monitor. Labs ordered for AM. Pt to rest in bed until CBI clears. Will continue to monitor. To call with changes in vitals or patient status, or if CBI clots or becomes more red.Patrice Campoverde MD - 03/24/2018 2:23 PM CDTCalled to PACU to look at urine. Urine was light pink and now is more red. CBI running, not clotting. D/w staff. Patient is not quite awake yet. Given his extensive tumor, some increase in hematuria after initial postop, and the fact that he lives over an hour [place] a half away, I think that it is best we keep him at least overnight for CBI and observation. Will place orders and update family when available. Patrice Campoverde MD Electronically Signed 03/24/2018 2:24 PM in this encounter Plan of Treatment Pending Results Name Priority Associated Diagnoses Date/Time TELEMETRY WAVEFORMS 03/28/2018 11:00 AM CDT TELEMETRY WAVEFORMS 03/28/2018 11:00 AM CDT as of this encounter Procedures Procedure Name Priority Date/Time Associated Diagnosis Comments CYSTOSCOPY, TRANSURETHRAL 03/24/2018 10:25 AM Bladder tumor RESECTION BLADDER TUMOR CDT Special Needs MITOMYCIN in this encounter Results TELEMETRY WAVEFORMS (03/27/2018 10:59 PM) TELE RATE 0.18 PHILIPSTELEMONITORING TELE QRS 0.10 PHILIPSTELEMONITORING TELE QT 0.42 PHILIPSTELEMONITORING TELE COMMENTS CW SARRTHY PAC RATE 90 PHILIPSTELEMONITORING TELE INTERPRETATION PHILIPSTELEMONITORING FUR FARMER/CARPENTER SUPERVISOR APPROVED Yes PHILIPSTELEMONITORING Performing Organization Address [facility] PHILIPSTELEMONITORING TELEMETRY WAVEFORMS (03/27/2018 8:57 PM) TELE COMMENTS MAGDA Vilchis.A.R. HR 100 J WISHCROPP PHILIPSTELEMONITORING TELE INTERPRETATION PHILIPSTELEMONITORING FUR FARMER/CARPENTER SUPERVISOR APPROVED Yes PHILIPSTELEMONITORING Performing Organization Address [facility] [place] PHILIPSTELEMONITORING TELEMETRY WAVEFORMS (03/27/2018 8:53 PM) TELE COMMENTS MAGDA INT ACCEL JUNC RHY HR 90 PHILIPSTELEMONITORING TELE INTERPRETATION PHILIPSTELEMONITORING FUR FARMER/CARPENTER SUPERVISOR APPROVED Yes PHILIPSTELEMONITORING Performing Organization Address [facility] [place] PHILIPSTELEMONITORING TELEMETRY WAVEFORMS (03/27/2018 7:07 PM) TELE COMMENTS KEAhsan HR 70 PHILIPSTELEMONITORING TELE INTERPRETATION Sinus Arrhythmia PHILIPSTELEMONITORING FUR FARMER/CARPENTER SUPERVISOR APPROVED Yes PHILIPSTELEMONITORING Performing Organization Address [facility] [place] Number PHILIPSTELEMONITORING TELEMETRY WAVEFORMS (03/27/2018 7:06 PM) TELE COMMENTS KEB PVC HR 90 PHILIPSTELEMONITORING TELE INTERPRETATION PHILIPSTELEMONITORING FUR FARMER/CARPENTER SUPERVISOR APPROVED Yes PHILIPSTELEMONITORING Performing Organization Address [facility] [place] Number PHILIPSTELEMONITORING TELEMETRY WAVEFORMS (03/27/2018 11:59 AM) TELE RATE 0.15 PHILIPSTELEMONITORING TELE IL 0.25 PHILIPSTELEMONITORING TELE QRS 0.10 PHILIPSTELEMONITORING TELE COMMENTS SJA PHILIPSTELEMONITORING TELE INTERPRETATION Sinus Arrhythmia PHILIPSTELEMONITORING FUR FARMER/CARPENTER SUPERVISOR APPROVED Yes PHILIPSTELEMONITORING Performing Organization Address [facility] Phone Number PHILIPSTELEMONITORING TELEMETRY WAVEFORMS (03/27/2018 8:06 AM) TELE RATE 0.16 PHILIPSTELEMONITORING TELE IL 0.22 PHILIPSTELEMONITORING TELE QRS 0.09 PHILIPSTELEMONITORING TELE COMMENTS SJA PHILIPSTELEMONITORING TELE INTERPRETATION PHILIPSTELEMONITORING FUR FARMER/CARPENTER SUPERVISOR APPROVED Yes PHILIPSTELEMONITORING Performing Organization Address [facility] Phone Number PHILIPSTELEMONITORING TELEMETRY WAVEFORMS (03/26/2018 11:37 PM) TELE RATE 0.14 PHILIPSTELEMONITORING TELE QRS 0.10 PHILIPSTELEMONITORING TELE QT 0.34 PHILIPSTELEMONITORING TELE COMMENTS EW HR 66 PHILIPSTELEMONITORING TELE INTERPRETATION PHILIPSTELEMONITORING FUR FARMER/CARPENTER SUPERVISOR APPROVED Yes PHILIPSTELEMONITORING Performing Organization Address [facility] [place] Phone Number PHILIPSTELEMONITORING TELEMETRY WAVEFORMS (03/26/2018 9:48 AM) TELE COMMENTS SS INTER CAR PHILIPSTELEMONITORING TELE INTERPRETATION PHILIPSTELEMONITORING FUR FARMER/CARPENTER SUPERVISOR APPROVED Yes PHILIPSTELEMONITORING Performing Organization Address [facility] [place] Phone Number PHILIPSTELEMONITORING TELEMETRY WAVEFORMS (03/26/2018 9:38 AM) TELE RATE 0.12 PHILIPSTELEMONITORING TELE QRS 0.09 PHILIPSTELEMONITORING TELE QT 0.37 PHILIPSTELEMONITORING TELE COMMENTS SS, PAC, PVC PHILIPSTELEMONITORING TELE INTERPRETATION PHILIPSTELEMONITORING FUR FARMER/CARPENTER SUPERVISOR APPROVED Yes PHILIPSTELEMONITORING Performing Organization Address [facility] [place] Phone Number [facility] Basic metabolic panel (03/26/2018 7:03 AM) Sodium 136 136 - 145 mmol/L [facility] Potassium 4.1 3.6 - 4.9 mmol/L [facility] Chloride 108 99 - 111 mmol/L [facility] CO2 23 20 - 36 mmol/L [facility] Anion Gap 5 [facility] Glucose 98 74 - 106 mg/dL [facility] Calcium 7.9 (L) 8.7 - 10.5 mg/dL [facility] BUN, Bld 31 (H) 6 - 20 mg/dL [facility] Creatinine 0.87 0.60 - 1.20 mg/dL [facility] eGFR >59 >59 mL/min [facility] Specimen Blood Performing Organization Address [facility] [place] Number [facility] [address] [place] [address] CBC Without Differential (03/26/2018 7:03 AM) RBC 2.72 (L) 4.32 - 5.72 10E12/L [facility] Hemoglobin 8.5 (L) 13.5 - 17.5 g/dL [facility] Hematocrit 26.5 (L) 38.8 - 50.0 % [facility] MCV 97.4 (H) 81.2 - 95.1 fL [facility] MCH 31.3 26.0 - 34.0 pg [facility] MCHC 32.1 31.0 - 37.0 g/dL [facility] RDW 15.1 11.8 - 15.6 % [facility] Platelets 140 (L) 150 - 450 10E9/L [facility] [facility] WBC 9.7 3.5 - 10.5 10E9/L [facility] Specimen Blood Performing Organization Address [facility] [place] Number [facility] [address] [place] [address] TELEMETRY WAVEFORMS (03/25/2018 11:03 PM) TELE RATE 0.14 PHILIPSTELEMONITORING TELE QRS 0.08 PHILIPSTELEMONITORING TELE QT 0.28 PHILIPSTELEMONITORING TELE COMMENTS KEB HR 90 PHILIPSTELEMONITORING TELE INTERPRETATION PHILIPSTELEMONITORING FUR FARMER/CARPENTER SUPERVISOR APPROVED Yes PHILIPSTELEMONITORING Performing Organization Address [facility] Phone Number [facility]ILIP[facility]ELEMONITORING TELEMETRY WAVEFORMS (03/25/2018 9:59 PM) TELE COMMENTS KEB PAC HR 110 PHILIPSTELEMONITORING TELE INTERPRETATION PHILIPSTELEMONITORING FUR FARMER/CARPENTER SUPERVISOR APPROVED Yes PHILIPSTELEMONITORING Performing Organization Address [facility] Phone Number PHILIPSTELEMONITORING TELEMETRY WAVEFORMS (03/25/2018 9:58 PM) TELE COMMENTS KEB HR 140 DOTTIE NUÑEZ RN PHILIPSTELEMONITORING TELE INTERPRETATION PHILIPSTELEMONITORING FUR FARMER/CARPENTER SUPERVISOR APPROVED Yes PHILIPSTELEMONITORING Performing Organization Address [facility] Phone Number PHILIPSTELEMONITORING TELEMETRY WAVEFORMS (03/25/2018 7:37 PM) TELE COMMENTS KEB COUP PAC'S HR 100 PHILIPSTELEMONITORING TELE INTERPRETATION PHILIPSTELEMONITORING FUR FARMER/CARPENTER SUPERVISOR APPROVED Yes PHILIPSTELEMONITORING Performing Organization Address [facility] Phone Number PHILIPSTELEMONITORING TELEMETRY WAVEFORMS (03/25/2018 6:59 PM) TELE COMMENTS KEB HR 70 PHILIPSTELEMONITORING TELE INTERPRETATION PHILIPSTELEMONITORING FUR FARMER/CARPENTER SUPERVISOR APPROVED Yes PHILIPSTELEMONITORING Performing Organization Address [facility] Phone Number PHILIPSTELEMONITORING TELEMETRY WAVEFORMS (03/25/2018 5:56 PM) TELE COMMENTS KEB HR 100 PHILIPSTELEMONITORING TELE INTERPRETATION PHILIPSTELEMONITORING FUR FARMER/CARPENTER SUPERVISOR APPROVED Yes PHILIPSTELEMONITORING Performing Organization Address [facility] Phone Number PHILIPSTELEMONITORING TELEMETRY WAVEFORMS (03/25/2018 11:58 AM) TELE RATE 0.13 PHILIPSTELEMONITORING TELE IL 0.19 PHILIPSTELEMONITORING TELE QRS 0.08 PHILIPSTELEMONITORING TELE COMMENTS SJA WITH PVCS PHILIPSTELEMONITORING TELE INTERPRETATION PHILIPSTELEMONITORING FUR FARMER/CARPENTER SUPERVISOR APPROVED Yes PHILIPSTELEMONITORING Performing Organization Address [facility] [place] Phone Number [facility] Basic metabolic panel (03/25/2018 8:25 AM) Sodium 138 136 - 145 mmol/L [facility] Potassium 5.0 (H) 3.6 - 4.9 mmol/L [facility] Chloride 109 99 - 111 mmol/L [facility] CO2 23 20 - 36 mmol/L [facility] Anion Gap 6 [facility] Glucose 112 (H) 74 - 106 mg/dL [facility] Calcium 8.5 (L) 8.7 - 10.5 mg/dL [facility] BUN, Bld 36 (H) 6 - 20 mg/dL [facility] Creatinine 1.17 0.60 - 1.20 mg/dL [facility] eGFR 59 (L) >59 mL/min [facility] Specimen Blood Performing Organization Address [facility] [place] Number [facility] [address] [place] [address] CBC Without Differential (03/25/2018 8:25 AM) RBC 3.35 (L) 4.32 - 5.72 10E12/L [facility] Hemoglobin 10.3 (L) 13.5 - 17.5 g/dL [facility] Hematocrit 32.2 (L) 38.8 - 50.0 % [facility] MCV 96.1 (H) 81.2 - 95.1 fL [facility] MCH 30.7 26.0 - 34.0 pg [facility] MCHC 32.0 31.0 - 37.0 g/dL [facility] RDW 14.7 11.8 - 15.6 % [facility] Platelets 197 150 - 450 10E9/L [facility] WBC 8.8 3.5 - 10.5 10E9/L [facility] Specimen Blood Performing Organization Address [facility] [place] Number [facility] [address] [place] [address] TELEMETRY WAVEFORMS (03/25/2018 8:13 AM) TELE RATE 0.14 PHILIPSTELEMONITORING TELE [place] 0.22 PHILIPSTELEMONITORING TELE QRS 0.09 PHILIPSTELEMONITORING TELE COMMENTS SJA PHILIPSTELEMONITORING TELE INTERPRETATION PHILIPSTELEMONITORING FUR FARMER/CARPENTER SUPERVISOR APPROVED Yes PHILIPSTELEMONITORING Performing Organization Address [facility] [place] Phone Number PHILIPSTELEMONITORING TELEMETRY WAVEFORMS (03/24/2018 11:03 PM) TELE RATE 0.10 PHILIPSTELEMONITORING TELE QRS 0.10 PHILIPSTELEMONITORING TELE QT 0.40 PHILIPSTELEMONITORING TELE COMMENTS CW PHILIPSTELEMONITORING TELE INTERPRETATION PHILIPSTELEMONITORING FUR FARMER/CARPENTER SUPERVISOR APPROVED Yes PHILIPSTELEMONITORING Performing Organization Address [facility] [place] Number PHILIPSTELEMONITORING TELEMETRY WAVEFORMS (03/24/2018 7:39 PM) TELE COMMENTS [facility] PAC PVC HR 90 PHILIPSTELEMONITORING TELE INTERPRETATION PHILIPSTELEMONITORING FUR FARMER/CARPENTER SUPERVISOR APPROVED Yes PHILIPSTELEMONITORING Performing Organization Address [facility] [place] Phone Number PHILIP[facility]ELEMONITORING CBC Without Differential (03/24/2018 6:48 PM) RBC 3.92 (L) 4.32 - 5.72 10E12/L [facility] Hemoglobin 12.0 (L) 13.5 - 17.5 g/dL [facility] Hematocrit 37.9 (L) 38.8 - 50.0 % [facility] MCV 96.7 (H) 81.2 - 95.1 fL [facility] MCH 30.6 26.0 - 34.0 pg [facility] MCHC 31.7 31.0 - 37.0 g/dL [facility] RDW 14.8 11.8 - 15.6 % [facility] Platelets 199 150 - 450 10E9/L [facility] WBC 6.0 3.5 - 10.5 10E9/L [facility] Specimen Blood Performing Organization Address [facility] [place] Number [facility] [address] [place], [place] [id number] TELEMETRY WAVEFORMS (03/24/2018 6:19 PM) TELE RATE 0.16 PHILIPSTELEMONITORING TELE QRS 0.06 PHILIPSTELEMONITORING TELE QT 0.40 PHILIPSTELEMONITORING TELE COMMENTS LSM RSR HR 70 PHILIPSTELEMONITORING TELE INTERPRETATION PHILIPSTELEMONITORING FUR FARMER/CARPENTER SUPERVISOR APPROVED Yes PHILIPSTELEMONITORING Performing Organization Address [facility] [place] Phone [facility] CBC Without Differential (03/24/2018 3:58 PM) RBC 4.34 4.32 - 5.72 10E12/L [facility] Hemoglobin 13.3 (L) 13.5 - 17.5 g/dL [facility] Hematocrit 42.3 38.8 - 50.0 % [facility] MCV 97.5 (H) 81.2 - 95.1 fL [facility] MCH 30.6 26.0 - 34.0 pg [facility] MCHC 31.4 31.0 - 37.0 g/dL [facility] RDW 14.6 11.8 - 15.6 % [facility] Platelets 172 150 - 450 10E9/L [facility] WBC 4.5 3.5 - 10.5 10E9/L [facility] Specimen Blood Performing Organization Address [facility] [place] Number [facility] [address] [place], [place] [id number] EKG 12 lead (03/24/2018 1:37 PM) Height in PHILIPSECG Heart Rate 69 bpm PHILIP[facility] Interval 870 ms PHILIPSECG Atrial Rate 66 ms PHILIP[facility] SV P-R Interval 139 ms PHILIP[facility] P Duration 127 ms PHILIPSECG P Horizontal [place] 20 deg PH[facility]IPSECG P Front [place] 49 deg PH[facility] Q Onset 502 ms PHILIP[facility] QRSD Interval 113 ms [facility] QT Interval 431 ms [facility] QTcB 462 ms [facility] QTcF 451 ms PH[facility]IP[facility] QRS Horizontal [place] 27 deg PHILIP[facility] QRS AXIS 9 deg PHILIPSE[facility] I40 Horizontal [place] 91 deg PHILIPSECG I40 Front [place] 138 deg PHILIPSECG T-40 Horizontal [place] -60 deg PHILIPSECG T-40 Front [place] -11 deg PHILIPSECG T Horizontal [place] 62 deg PH[facility]IP[facility] T Wave [place] 28 deg PHILIP[facility] S-T HORIZONTAL AXIS 99 deg PHILIP[facility] S-T FRONT AXIS 201 deg [facility]IP[facility] ECG Impression - ABNORMAL ECG - [facility]ILIP[facility] ECG Impression SR [facility] ECG Impression Sinus rhythm PHILIP[facility] ECG Impression normal P axis, V-rate 60-99 [facility]IP[facility] Performing Organization Address [facility] Phone Number PHILIPSECG in this encounter Visit Diagnoses Diagnosis Bladder cancer (HCC) - Primary Malignant neoplasm of bladder, part unspecified Bladder tumor Neoplasm of unspecified nature of bladder Malignant neoplasm of overlapping sites of bladder (HCC) Malignant neoplasm of other specified sites of bladder Admitting Diagnoses Diagnosis Bladder cancer (HCC) Bladder cancer (HCC) Administered Medications Inactive Administered Medications - up to 3 most recent administrations Medication Order MAR Action Action Date Dose Rate Site 0.9% NaCl infusion New Bag 03/25/2018 23:43 CDT 75 mL/hr 75 mL/hr 75 mL/hr, Intravenous, CONTINUOUS, Starting 03/25/18 at 1015 New Bag 03/26/2018 14:22 CDT 75 mL/hr 75 mL/hr New Bag 03/27/2018 02:49 CDT 75 mL/hr 75 mL/hr fentaNYL (SUBLIMAZE) injection 25-50 mcg Given 03/24/2018 13:30 CDT 25 mcg 25-50 mcg EVERY 5 MIN PRN, Intravenous, Severe Pain, Starting Tue03/24/18 at 1243, Maximum to be given is 200 mCg If ineffective proceed to Dilaudid. Given 03/24/2018 13:42 CDT 25 mcg Given 03/24/2018 13:54 CDT 25 mcg HYDROcodone-acetaminophen (NORCO) 5-325 MG tablet 1-2 tablet 1-2 tablet EVERY 4 HOURS PRN, Oral, Moderate Pain, Starting Tue03/24/18 at 1239 , If one tablet is ineffective, and there are no side effects, may repeat 1 tablet in 60 minutes. If ineffective may proceed to oxycodone for moderate pain relief. Adults: Do not exceed 4000 mg from all sources in 24 hours. Pediatrics 0-12 years old: Do not exceed 5 doses per day or 75 mg/kg/day from all sources. lactated ringers bolus 1,000 mL New Bag 03/24/2018 18:22 CDT 1,000 mLs 1,000 mL BOLUS, Intravenous, Tue03/24/18 at 1845, For 1 dose lactated ringers infusion New Bag 03/24/2018 09:12 CDT 20 mL/hr 20 mL/hr 20 mL/hr, Intravenous, CONTINUOUS, Starting Tue03/24/18 at 0915, Pre-op New Bag 03/24/2018 10:48 CDT New Bag 03/24/2018 12:29 CDT lactated ringers infusion New Bag 03/24/2018 19:23 CDT 75 mL/hr 75 mL/hr 75 mL/hr, Intravenous, CONTINUOUS, Starting Tue03/24/18 at 1930 New Bag 03/25/2018 08:27 CDT 75 mL/hr 75 mL/hr levothyroxine (SYNTHROID) tablet 150 mcg Given 03/26/2018 06:11 CDT 150 mcg 150 mcg EVERY MORNING BEFORE BREAKFAST, Oral, First dose on 03/25/18 at 0700 Given 03/27/2018 06:00 CDT 150 mcg Given 03/28/2018 06:08 CDT 150 mcg meperidine (DEMEROL) injection 12.5 mg Given 03/24/2018 14:14 CDT 12.5 mg STAT, 12.5 mg ONCE PRN, Intravenous, Other, shivers, Starting Tue03/24/18 at 1412, For 1 dose, Phase 1 (PACU) oxyCODONE (ROXICODONE) immediate release tablet 5-15 mg 5-15 mg EVERY 4 HOURS PRN, Oral, Moderate Pain, Starting Tue03/24/18 at 1239, May use if hydrocodone ineffective. Give 5 mg for pain scale of 1-4 (mild pain), 10 mg for pain scale of 5-7 (moderate pain), and 15 mg for pain scale of 8-10(severe pain). phenazopyridine (PYRIDIUM) tablet 200 mg Given 03/24/2018 13:18 CDT 200 mg 200 mg EVERY 8 HOURS PRN, Oral, bladder spasms and burning, Starting 03/24/18 at 1239, For 48 hours Given 03/25/2018 10:18 CDT 200 mg traMADol (ULTRAM) tablet 50 mg 50 mg EVERY 4 HOURS PRN, Oral, Moderate Pain, Starting 03/24/18 at 1239, May use if patient has intolerance to opioids. Maximum dose is 400 mg in 24 hours. For patients over 75 years of age, max dose is 300 mg in 24 hours. white petrolatum (VASELINE) jelly Given 03/27/2018 16:57 CDT 2 TIMES DAILY PRN, Topical, Dry Skin, Starting 03/26/18 at 2018 in this encounter
--- OUTSIDE RECORDS SUMMARY | 2018-03-28 15:39 | External Medical Summary | Clinical Summary ---
:1930 Author Organization [facility] Address [address] [address] Care Team Providers Name Role Phone Unavailable Primary Care Provider Unavailable Allergies Active Allergy Reactions Severity Noted Date Comments Aspirin Other (See Comments) 03/06/2018 Does not know Current Medications Prescription Sig. Disp. Refills Start Date End Date Status levothyroxine Take 150 mcg by Active (SYNTHROID) 150 MCG mouth every tablet morning before breakfast. HYDROcodone-acetaminoph Take 1 tablet by 30 tablet 0 03/24/2018 Active en (NORCO) 5-325 MG mouth every 6 tabletIndications: (six) hours as Bladder tumor, needed for Malignant neoplasm of Moderate Pain. overlapping sites of Do not exceed a bladder (HCC) daily dose of 4 tablets oxybutynin (DITROPAN) 5 Take 1 tablet (5 30 tablet 0 03/24/2018 Active MG tabletIndications: mg total) by Bladder tumor, mouth 3 (three) Malignant neoplasm of times daily as overlapping sites of needed (bladder bladder (HCC) spasms). phenazopyridine Take 1 tablet 10 tablet 0 03/24/2018 Active (PYRIDIUM) 100 MG (100 mg total) tabletIndications: by mouth 3 Bladder tumor, (three) times Malignant neoplasm of daily as needed overlapping sites of (buring or bladder (HCC) dysuria). docusate sodium Take 1 capsule 30 capsule 0 03/24/2018 Active (COLACE) 100 MG (100 mg total) capsuleIndications: by mouth 2 (two) Bladder tumor, times daily. Malignant neoplasm of overlapping sites of bladder (HCC) Active Problems Problem Noted Date Bladder cancer (HCC) 03/24/2018 Overview: Tumors everywhere, in multiple tics, etc, resected large amounts 03/24/18 in OR Appears superficially invasive, but in diverticulum throughout the bladder. Bladder tumor 03/02/2018 Overview: Tumors everywhere, in multiple tics, etc, resected large amounts 03/24/18 in OR Appears superficially invasive, but in diverticulum throughout the bladder. Encounters Date Type Specialty Care Team Description 03/24/2018 - Hospital Encounter Patrice Campoverde Malignant neoplasm of overlapping sites of bladder (HCC) (Primary Dx); 03/28/2018 MD Chanel Bladder tumor Discharge Summaries - Patrice Campoverde MD - 03/24/2018 12:41 PM CDT Formatting of this note may be different from the original. [address] [id number] Discharge Summary Patient Name: Italo Tang : [...] an outpatient. There was tumor everywhere, there were large tumors on the left bladder and multiple other tumors on the bladder wall proper and also in estefanía lules and diverticuli of the bladder We resected them all. Initially, his urine was clear on leaving the operating room and he did not require CBI, but shortly thereafter he had some postop bleeding s tarting a few hours after resection requiring CBI for a couple days. He had one episode of hypotension on POD#1, with no clinical symptoms or tachycardia. STAT team evaluated and IVF bolus was all fortino t was required to improve his blood pressure. He was clinically a bit dry on admission with very dark concentrated urine on presentation to the operating room. CBI was run for 2 days with no clot retent ion and it was then stopped. Hb drifted down a bit from his baseline, but he never had any clinical signs or symptoms of anemia. He was afebrile and otherwise VS were stable throughout stay. He wished to be made DNR and we did that for him. On postop day 3, he had CBI off for >24 hrs with no additional bleeding. VS were stable and he was tolerating PO well. Given difficult transfers and ambulation posotp, PT was consulted and recommen ded short term nursing or rehab placement. This was arranged and he was discharged in stable condition on 03/28/2018 Disposition / facility discharged to: Acute rehab [facility] Patient Instructions: Current Discharge Medication List START [...] tablet (5 mg total) by mouth 3 ( three) times daily as needed (bladder spasms). Qty: 30 tablet, Refills: 0 Associated Diagnoses: Bladder tumor; Malignant neoplasm of overlapping sites of bladder (HCC) phenazopyridine (PYRIDIUM) 100 MG tablet Take 1 tablet (100 mg total) by mouth 3 (three) times daily as needed (buring or dysuria). Qty: 10 tablet, Refills: 0 Associated Diagnoses: Bladder tumor; Malignant neoplasm of overlapping sites of bladder (HCC) CONTINUE these medications which have NOT CHANGED Details levothyroxine (SYNTHROID) 150 MCG tablet Take 150 mcg by mouth every morning before breakfast. Activity: see sheet Diet: regular diet and encourage fluids Wound Care: see sheet, fisher care, irrigate PRN only at [facility] Follow-up with [facility] in [facility] on Tuesday for possible cath removal, or if in rehab, follow up at [facility] if they are able to do fill and pull in [place] Instructions given to: Patient and family Patient teaching: See dc instructions Discharge Non-Med Orders None Total discharge time: >32 min in counseling and coordination of care Patrice Campoverde MD Electronic signature 03/27/2018 8:58 AM 03/24/2018 Anesthesia Event Hetal Velasco MD 03/24/2018 Procedure Pass 03/24/2018 Surgery Patrice Campoverde MD CYSTOSCOPY, TRANSURETHRAL RESECTION BLADDER TUMOR 03/10/2018 Telephone Patrice Campoverde MD Reschedule Appointment (Reschedule surgery) 03/02/2018 Prep for Surgery Patrice Campoverde MD 03/02/2018 Orders Only Patrice Campoverde MD Bladder tumor (Primary Dx ) 03/01/2018 Chart Note Patrice Campoverde MD from Last 3 Months Social History Tobacco Use Types Packs/Day Years Used Date Never Smoker Smokeless Tobacco: Never Used Alcohol Use Drinks/Week oz/Week Comments No Sex Assigned at Date Recorded Not on file Last Filed Vital Signs Vital Sign Reading [...] Mass Index 24.22 03/28/2018 12:08 AM CDT Plan of Treatment Health Maintenance Due Date Last Done Comments Annual Wellness Visit 1930 DTaP,Tdap,and Td Vaccines (1 - 1949 Tdap) Zoster Recombinant Vaccine 1980 (RZV,Shingrix) (1 of 2 - SVH 2 Dose Standard) Pneumo-Adult (1 of 2 - PCV13) 1995 Influenza Vaccine (#1) 2018 08/12/2010, 05/28/2009, 06/26/2008, Additional history exists Procedures Procedure Name Priority Date/Time Associated Diagnosis Comments ANES ETT FOR LDA DOC Routine 03/24/2018 11:01 AM CDT Procedure Note - Hetal Velasco MD - 03/24/2018 11:01 AM CDT Airway Date/Time: 03/24/2018 11:02 AM Urgency: elective General Information Patient location during procedure: OR-ETT Consent for Airway: (if performed for an anesthetic, see related documentation for consents) Immediately prior to the procedure a time out was called. Please see nurse documentation. Indications and Patient Condition Indications for airway management: anesthesia Preoxygenated: yes Patient position: sniffing Mask difficulty assessment: easy mask Induction: Intravenous Final Airway Details Final airway type: endotracheal airway Successful airway: ETT, Cuffed Successful intubation technique: direct laryngoscopy and stylet Endotracheal tube insertion site: oral Blade: Mac 3 Laryngeal View Grade: Grade II - cords partially seen Complicating Factors: none Placement verified by: Auscultation, Equal Breath Sounds and Positive [id number] Measured from: lips Secured with: plastic tape Number of attempts at approach: 1 Post Procedure Patient tolerated the procedure well with no apparent complications. Performed by Anesthesiologist: HETAL VELASCO The staff listed as performing provider was present and participated throughout the entire procedure. Hetal Velasco MD Electronic Signature 03/24/2018 11:01 AM CYSTOSCOPY, TRANSURETHRAL RESECTION BLADDER 03/24/2018 10:25 AM CDT Bladder tumor TUMOR Special Needs MITOMYCIN from Last 3 Months Results TELEMETRY WAVEFORMS (03/27/2018 10:59 PM)Only the most recent of21 resultswithin the time period is included. TELE RATE 0.18 [facility] TELE QRS 0.10 [facility] TELE QT 0.42 [facility] TELE COMMENTS CW SARRTHY PAC RATE 90 [facility] TELE INTERPRETATION [facility] SAWD[employer] APPROVED Yes [facility] Performing Organization Address City/State/Zipcode Phone Number [facility] CBC Without Differential (03/26/2018 7:03 AM)Only the most recent of4 resultswithin the time period is included. RBC 2.72 (L) 4.32 - 5.72 10E12/L [facility] Hemoglobin 8.5 (L) 13.5 - 17.5 g/dL [facility] Hematocrit 26.5 (L) 38.8 - 50.0 % [facility] MCV 97.4 (H) 81.2 - 95.1 fL [facility] MCH 31.3 26.0 - 34.0 pg [facility] MCHC 32.1 31.0 - 37.0 g/dL [facility] RDW 15.1 11.8 - 15.6 % [facility] Platelets 140 (L) 150 - 450 10E9/L [facility] WBC 9.7 3.5 - 10.5 10E9/L [facility] Specimen Blood Performing Organization Address [facility] Phone Number [facility] [address] [place] [address] Basic metabolic panel (03/26/2018 7:03 AM)Only the most recent of2 resultswithin the time period is included. Sodium 136 136 - 145 mmol/L [facility] Potassium 4.1 3.6 - 4.9 mmol/L [facility] Chloride 108 99 - 111 mmol/L [facility] CO2 23 20 - 36 mmol/L [facility] Anion Gap 5 [facility] Glucose 98 74 - 106 mg/dL [facility] Calcium 7.9 (L) 8.7 - 10.5 mg/dL [facility] BUN, Bld 31 (H) 6 - 20 mg/dL [facility] Creatinine 0.87 0.60 - 1.20 mg/dL [facility] eGFR >59 >59 mL/min [facility] Specimen Blood Performing Organization Address [facility] Phone Number [facility] [address] [place] [address] EKG 12 lead (03/24/2018 1:37 PM) Height in [facility] Heart Rate 69 bpm [facility] Interval 870 ms [facility] Atrial Rate 66 ms [facility] SV P-R Interval 139 ms [facility] P Duration 127 ms [facility] P Horizontal [place] 20 deg [facility] P Front [place] 49 deg [facility] Q Onset 502 ms [facility] QRSD Interval 113 ms [facility] QT Interval 431 ms [facility] QTcB 462 ms [facility] QTcF 451 ms [facility] QRS Horizontal [place] 27 deg [facility] QRS AXIS 9 deg [facility] I40 Horizontal [place] 91 deg [facility] I40 Front [place] 138 deg [facility] T-40 Horizontal [place] -60 deg [facility] T-40 Front [place] -11 deg [facility] T Horizontal [place] 62 deg [facility] T Wave [place] 28 deg [facility] S-T HORIZONTAL AXIS 99 deg [facility] S-T FRONT AXIS 201 deg [facility] ECG Impression - ABNORMAL ECG - [facility] ECG Impression SR [facility] ECG Impression Sinus rhythm [facility] ECG Impression normal P axis, V-rate 60-99 [facility] Performing Organization Address City/State/[facility] Phone Number [facility] from Last 3 Months
--- OUTSIDE RECORDS SUMMARY | 2018-03-28 15:40 | External Medical Summary | Encounter Summary ---
:1930 Author Organization [facility] Address [address] [place] [address] Care Team Providers Name Role Phone Unavailable Primary Care Provider Unavailable Reason for Visit Auth/Cert Status Reason Specialty Diagnoses / Procedures Referred By Contact Referred To Contact Diagnoses Bladder cancer (HCC) Bladder cancer (HCC) Procedures CYSTOSCOPY, TRANSURETHRAL RESECTION BLADDER TUMOR Encounter Details Date Type Department Care Team Description 03/24/2018 Surgery Formerly [facility] Patrice Campoverde CYSTOSCOPY, [address] Gauri Buchanan MD TRANSURETHRAL RESECTION [id number] [address] BLADDER TUMOR [address] [id number] Social History Tobacco Use Types Packs/Day Years [...] may be different from the original. [address] [address] Discharge Summary Patient Name: Italo Tang : [...] Disposition / facility discharged to: Acute rehab [facility] Patient Instructions: Current Discharge Medication List START [...] sheet, fisher care, irrigate PRN only at [facility] Follow-up with nirali in [facility] on Tuesday for possible cath removal, or if in rehab, follow up at [facility] if they are able to do fill and pull in [place] Instructions given to: Patient and family Patient teaching: See dc instructions Discharge Non-Med Orders None Total discharge time: >32 min in counseling and coordination of care Patrice Campoverde MD Electronic signature 03/27/2018 8:58 Freeman this encounter Discharge Instructions Rula Montes De Oca RN - 03/24/2018[facility] [address] [place], [place] Bladder Cancer Bladder cancer is an abnormal [...] cells. Follow these instructions at home: Take kjcx-[id number] and prescription medicines only as told by [...] is important. Where to find more information: [place] [employer]: www.cancer.org National Cancer [place] (NCI): www.cancer.gov Contact a health care provider [...] Released: 08/31/2004 Document Revised: 08/02/2017 Document Reviewed: Rushmore[employer]fm Interactive Patient Education 2017 [employer]. Instructions for Care Following Transurethral Resection of [...] your knees, not your waist. Stoop to tile picker the item. ? Avoid constipation. This [...] will remove that in the clinic in [place]. Meds that I wrote you are NEEDED [...] to absorb moisture and to keep your skin care specialist. SEEK MEDICAL CARE IF: Your urine is [...] Released: 08/29/2006 Document Revised: 01/13/2015 Document Reviewed: Rushmore.fm Interactive Patient Education 2017 [employer]. in this encounter Medications at Time of [...] - 03/28/2018 12:18 PM CDTThis nurse called [facility] for report and spoke with Hussein. All questions answered. Left phone number incase further questions.Brittney Ziegler RN - 03/28/2018 12:17 PM CDTPt discharging off the floor at 1218 via wheelchair. IV removed. Fisher intact. All belongings gathered and prescriptions and discharge paperwork sent with Pt son Winston.Areli Damico, CPTA - 03/28/2018 9:48 AM CDT Formerly [facility] [address] [address] Physical Therapy Patient Name: Italo Tang : 1930 Billing Number: [id number] Physician: Patrice Campoverde MD Admission Dx: Bladder cancer (HCC) Bladder cancer (HCC) Admit Date: 03/24/2018 Principal Problem: Bladder cancer (HCC) Today's Date: 03/28/2018 Physical Therapy Treatment Note S: Nursing gives permission to treat. Patient gives permission to treat. pt reports seeing spinning water/objects when entering room, declined them while walking. O: Precautions: fall risk and urinary catheter Mental Status: alert and oriented to: city, month, pt thought it was 1987. knows [...] 03/28 Discharge Recommendations: Plans: Inpatient Rehabilitation or Alf Facility or Swingbed Projected equipment for d/c: front wheeled walker Transportation: Patient safe to transport by wheelchair. 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 Testing Completed: AM-[facility] Daily Activity Inpatient Short Form How much [...] little Total Score: 16 / 24 (53.32%) -[facility] Functional Stages: Score 14-19: Score suggests some [...] placed in reach pad alarm activated nurse (RN/GAS APPLIANCE REPAIRER) notified Patient's support person has demonstrated understanding of safe transfer techniques? No Patient/Family Discharge Plans: Inpatient Rehabilitation or Alf Facility or Swingbed Assessment / Recommendations Patient [...] Therapy Discharge Recommendations: Plan: Inpatient Rehabilitation or Alf Facility or Swingbed; pt not safe for [...] with good safety 7. Patient complete the [place] Cognitive Assessment to further evaluate cognition 8. Pt will increase AM-PAC Daily Living score to at least 23 out of 24 or no more than 15.86% impairment to increase patient's self care skills Charges/Time:([id number]) OT eval moderate complex Naty Tripathi, OTR/L Electronically Signed 03/28/2018 8:21 AM Valeria Carballo RN - 03/27/2018 8:07 PM CDTLeadership rounds complete. Pt sitting up in chair. No questions or concerns at this time.Rula Montes De Oca RN - 03/27/2018 4:[address] [address] Case Management / Social Work Initial Assessment Patient Name: Italo aTng : 1930 Primary Care Physician: Judson Iniguez APRN Attending Provider: Patrice Campoverde MD Admission Date: 03/24/2018 Patient Status: Inpatient Anticipated Discharge Needs: 1. Pt will need rehab @ d/c - referral faxed to [facility] Discharge Plan: rehab Support system at home: Spouse/significant other Who is next of kin? - Linda Homebound status: No Does the patient drive? Yes Transportation to medical appointments? Yes Who transports you to medical appointments?: self or family Who will provide discharge transportation? facility Pharmacy patient uses: [facility] Method of prescription payment: Insurance Last [...] or more How often do you attend gnosticism services, social groups or clubs? Once a week ([facility]) Living arrangements prior to hospitalization: Home SNF [...] . Pt has 1 son Winston in [place] & a son in [place]. Pt reports his grandson Rajesh retired from 20 years and works with him and is very supportive. 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 What basic needs are being met (food, prison, safety, medication, etc.)? Yes, pt reports his [...] Notes: Faxed referral, AVS, medication list to [facility] at [phone]. Provided pt'sson with hand-written address to take with him with address for [facility]. Pt discharged with son, who is transporting him to Acute Rehab. Communicated with: Winston-son; faxed referral, AVS, meds Discharge Plan: Facility or Service: [facility] Esha Barajas LMSW Electronically Signed Today' Date: 03/27/2018 Time: 1:00 PM Notes: SW met with pt's son, Winston, to discuss Rehab placement & that once placement could be found/pt accepted, his father could be discharged. Informed Winston that pt did not meet criteria for admission to [facility] SNF at this time, but that with permission, SW could pursue AR placement either in [place] or at nearest facility to [place], [place]. [place] [facility] (37 miles from [place], [place]). NATHEN asked if TERRIE BLAKELY CM, could assist in making phone call to [facility] to inquire if facility had openings & send referral information if necessary. Communicated with: Winston-pt's son, ZORA-TERRIE PIÑA Discharge Plan: Facility or Service: placement pending Esha Barajas LMSW Electronically Signed ' Date: 03/27/2018 Time: 9:15 AM Notes: Dr. Campoverde left message for SW to discuss discharge & that pt meets all Medicare guidelines & criteria to discharge to Rehab today. Pt's son, Winston, would like for pt to discharge to [facility] SNF as pt's spouse is currently there. SW returned call to Dr. Campoverde to discuss [...] he may be agreeable to AcuteRehab in [place] because he lives in [place], but he may want pt closer to his home. Communicated with: Dr. Campoverde Discharge Plan: Facility or Service: TBD Esha Barajas LMSW Electronically Signed Naty Padilla, PT - 03/27/2018 9:[address] [address] Physical Therapy Patient Name: Italo Tang : 1930 Billing Number: [id number] Physician: Patrice Campoverde MD Admit Date: 03/24/2018 [...] name, birthdate, and city. Not oriented to [facility]. Vision: intact, reading glasses Hearing: impaired both ears. Patient wearing hearing aide in R ear only. Speech: intact and slurred Range of Motion: Lawson. feet and ankles limited by edema. Lawson. ankle dorsiflexion to grossly neutral. Lawson. knees and hip remain about 20 degrees flexed when standing and ambulating. Strength: Lawson. LEs grossly 3+/5 Neuro: grossly intact Pain [...] set call light placed in reach nurse (RN/GAS APPLIANCE REPAIRER) notified that patient seemed to be having [...] yes Discharge Recommendations: Plans: Inpatient Rehabilitation or Alf Facility or Swingbed Projected equipment for d/c: [...] note may be different from the original. [place] [phone] Urology Progress Note 03/27/2018 Patient Name: Italo [...] acute medical issues. Per nursing, family requested [place] [facility] for swing bed or similar. That is close to his wifeand home I called [facility] in [place] and they have available SNF beds. Will [...] may be different from the original. [address] [phone] Urology Progress Note 03/26/2018 Patient Name: Italo [...] until at least . I am in [place] on Tuesday, so can re-assess and remove fisher at that time if indicated. I asked nursing to call me with PT recs once they visit and we will see what we can arrange pending their recommendations. Patrice Campoverde MD Electronic Signature 03/26/2018 9:44 AM Patrice Campoverde MD - 03/25/2018 9:54 AM CDTFormatting of this note may be different from the original. [address] [address] Urology Progress Note 03/25/2018 Patient Name: Italo [...] Continuous Infusions: lactated ringers 75 mL/hr (03/25/18 08) PRN Meds: acetaminophen, fentaNYL, HYDROcodone-acetaminophen OR oxyCODONE OR traMADol, morphine, ondansetron, phenazopyridine Objective: Vitals signs in last 12 hours: Patient Vitals for the past 12 hrs: BP Temp Pulse Resp SpO2 Weight 03/25/18 0900 109/49 96.8 F (36 C) 64 - 95 % - 03/25/18619 - - - - - 83.1 kg (183 lb 3.2 oz) 03/25/18 0327 101/51 97.9 F (36.6 C) 85 16 96 % - Admission Weight: 77.1 kg (170 lb) Recent Weights: Patient Vitals for the past 72 hrs: Weight 03/25/18619 83.1 kg (183 lb 3.2 oz) 03/24/18 [...] AM lab. Also switch to NS from LR as K is just a touch high. Patrice Campoverde MD Electronic Signature 03/25/2018 9:54 AM Christine Handy RN - 03/25/2018 8:[address] [phone] Patient Name: Italo Lindquistnicolette : 1930 Primary Care Physician: No primary [...] may be different from the original. [address] [address] Urology Progress Note 03/24/2018 Patient Name: Italo [...] non-distended, bowel sounds present /Pelvic: CBI with switchboard troubleshooter red, small clots, but much better than [...] may be different from the original. [address] [address] Patient Name: Italo Tang : 1930 Primary [...] 65/44 by Ricarda Olivares RN at 03/24/18 1822 66/37 by Ricarda Olivares RN at 03/24/18 1818 72/44 by Ricarda Oilvares RN at 03/24/18 1815 66/37 by Theodora Alejandro RN at 03/24/18 1813 72/44 by Theodora Alejandro RN at 03/24/18 1812 60/37 by iRcarda Olivares RN at 03/24/18 1800 106/61 by Elise Pt pressures have responded to the LR bolus Rapid Response Team arrival time: 1816 Provider at bedside time: Rapid Response Team departure time: 1854 Naty [place] 03/24/2018 6:39 PM Ricarda Olivares RN - 03/24/2018 4:[address] Nirali called [...] PAC RATE 90 PHILIPSTELEMONITORING TELE INTERPRETATION PHILIPSTELEMONITORING FOOT MITER OPERATOR/GAS APPLIANCE REPAIRER APPROVED Yes PHILIPSTELEMONITORING Performing Organization Address [facility] Phone Number PHILIPSTELEMONITORING TELEMETRY WAVEFORMS (03/27/2018 8:57 PM) TELE COMMENTS MAGDA C.A.R. HR 100 J WISHCROPP PHILIPSTELEMONITORING TELE INTERPRETATION PHILIPSTELEMONITORING FOOT MITER OPERATOR/GAS APPLIANCE REPAIRER APPROVED Yes PHILIPSTELEMONITORING Performing Organization Address [facility] Phone Number PHILIPSTELEMONITORING TELEMETRY WAVEFORMS (03/27/2018 8:53 PM) TELE COMMENTS MAGDA INT ACCEL JUNC RHY HR 90 PHILIPSTELEMONITORING TELE INTERPRETATION PHILIPSTELEMONITORING FOOT MITER OPERATOR/GAS APPLIANCE REPAIRER APPROVED Yes PHILIPSTELEMONITORING Performing Organization Address [facility] Phone Number PHILIPSTELEMONITORING TELEMETRY WAVEFORMS (03/27/2018 7:07 PM) TELE COMMENTS KEB HR 70 PHILIPSTELEMONITORING TELE INTERPRETATION Sinus Arrhythmia PHILIPSTELEMONITORING FOOT MITER OPERATOR/GAS APPLIANCE REPAIRER APPROVED Yes PHILIPSTELEMONITORING Performing Organization Address [facility] Phone Number PHILIPSTELEMONITORING TELEMETRY WAVEFORMS (03/27/2018 7:06 PM) TELE COMMENTS KEB PVC HR 90 PHILIPSTELEMONITORING TELE INTERPRETATION PHILIPSTELEMONITORING FOOT MITER OPERATOR/GAS APPLIANCE REPAIRER APPROVED Yes PHILIPSTELEMONITORING Performing Organization Address [facility] Phone Number PHILIPSTELEMONITORING TELEMETRY WAVEFORMS (03/27/2018 11:59 AM) TELE RATE 0.15 PHILIPSTELEMONITORING TELE AK 0.25 PHILIPSTELEMONITORING TELE QRS 0.10 PHILIPSTELEMONITORING TELE COMMENTS SJA PHILIPSTELEMONITORING TELE INTERPRETATION Sinus Arrhythmia PHILIPSTELEMONITORING FOOT MITER OPERATOR/GAS APPLIANCE REPAIRER APPROVED Yes PHILIPSTELEMONITORING Performing Organization Address [facility] Phone Number PHILIPSTELEMONITORING TELEMETRY WAVEFORMS (03/27/2018 8:06 AM) TELE RATE 0.16 PHILIPSTELEMONITORING TELE AK 0.22 PHILIPSTELEMONITORING TELE QRS 0.09 PHILIPSTELEMONITORING TELE COMMENTS SJA PHILIPSTELEMONITORING TELE INTERPRETATION PHILIPSTELEMONITORING FOOT MITER OPERATOR/GAS APPLIANCE REPAIRER APPROVED Yes PHILIPSTELEMONITORING Performing Organization Address [facility] Phone Number PHILIPSTELEMONITORING TELEMETRY WAVEFORMS (03/26/2018 11:37 PM) TELE RATE 0.14 PHILIPSTELEMONITORING TELE QRS 0.10 PHILIPSTELEMONITORING TELE QT 0.34 PHILIPSTELEMONITORING TELE COMMENTS EW HR 66 PHILIPSTELEMONITORING TELE INTERPRETATION PHILIPSTELEMONITORING FOOT MITER OPERATOR/GAS APPLIANCE REPAIRER APPROVED Yes PHILIPSTELEMONITORING Performing Organization Address [facility] Phone Number PHILIPSTELEMONITORING TELEMETRY WAVEFORMS (03/26/2018 9:48 AM) TELE COMMENTS SS INTER CAR PHILIPSTELEMONITORING TELE INTERPRETATION PHILIPSTELEMONITORING FOOT MITER OPERATOR/GAS APPLIANCE REPAIRER APPROVED Yes PHILIPSTELEMONITORING Performing Organization Address [facility] Phone Number PHILIPSTELEMONITORING TELEMETRY WAVEFORMS (03/26/2018 9:38 AM) TELE RATE 0.12 PHILIPSTELEMONITORING TELE QRS 0.09 PHILIPSTELEMONITORING TELE QT 0.37 PHILIPSTELEMONITORING TELE COMMENTS SS, PAC, PVC PHILIPSTELEMONITORING TELE INTERPRETATION PHILIPSTELEMONITORING FOOT MITER OPERATOR/GAS APPLIANCE REPAIRER APPROVED Yes PHILIPSTELEMONITORING Performing Organization Address [facility] Phone Number PHILIPSTELEMONITORING Basic metabolic panel (03/26/2018 7:03 AM) Sodium 136 136 - 145 mmol/L [facility] Potassium 4.1 3.6 - 4.9 mmol/L [facility] Chloride 108 99 - 111 mmol/L [facility] CO2 23 20 - 36 mmol/L [facility] Anion Gap 5 [facility] Glucose 98 74 - 106 mg/dL [facility] Calcium 7.9 (L) 8.7 - 10.5 mg/dL [facility] BUN, Bld 31 (H) 6 - 20 mg/dL [facility] Creatinine 0.87 0.60 - 1.20 mg/dL [facility] eGFR >59 >59 mL/min [facility] Specimen Blood Performing Organization Address [facility] Phone Number [facility] [address] [place] [address] CBC Without Differential (03/26/2018 7:03 AM) RBC 2.72 (L) 4.32 - 5.72 10E12/L [facility] Hemoglobin 8.5 (L) 13.5 - 17.5 g/dL [facility] Hematocrit 26.5 (L) 38.8 - 50.0 % [facility] MCV 97.4 (H) 81.2 - 95.1 fL [facility] MCH 31.3 26.0 - 34.0 pg [facility] MCHC 32.1 31.0 - 37.0 g/dL [facility] RDW 15.1 11.8 - 15.6 % [facility] Platelets 140 (L) 150 - 450 10E9/L [facility] WBC 9.7 3.5 - 10.5 10E9/L [facility] Specimen Blood Performing Organization Address [facility]/Zipcode Phone Number [facility] [address] [place] [address] TELEMETRY WAVEFORMS (03/25/2018 11:03 PM) TELE RATE 0.14 PHILIPSTELEMONITORING TELE QRS 0.08 PHILIPSTELEMONITORING TELE QT 0.28 PHILIPSTELEMONITORING TELE COMMENTS KEB HR 90 PHILIPSTELEMONITORING TELE INTERPRETATION PHILIPSTELEMONITORING FOOT MITER OPERATOR/GAS APPLIANCE REPAIRER APPROVED Yes PHILIPSTELEMONITORING Performing Organization Address [facility] Phone Number PHILIPSTELEMONITORING TELEMETRY WAVEFORMS (03/25/2018 9:59 PM) TELE COMMENTS KEB PAC HR 110 PHILIPSTELEMONITORING TELE INTERPRETATION PHILIPSTELEMONITORING FOOT MITER OPERATOR/GAS APPLIANCE REPAIRER APPROVED Yes PHILIPSTELEMONITORING Performing Organization Address [facility] Phone Number PHILIPSTELEMONITORING TELEMETRY WAVEFORMS (03/25/2018 9:58 PM) TELE COMMENTS KEB HR 140 DOTTIE NUÑEZ RN PHILIPSTELEMONITORING TELE INTERPRETATION PHILIPSTELEMONITORING FOOT MITER OPERATOR/GAS APPLIANCE REPAIRER APPROVED Yes PHILIPSTELEMONITORING Performing Organization Address [facility] Phone Number PHILIPSTELEMONITORING TELEMETRY WAVEFORMS (03/25/2018 7:37 PM) TELE COMMENTS KEB COUP PAC'S HR 100 PHILIPSTELEMONITORING TELE INTERPRETATION PHILIPSTELEMONITORING FOOT MITER OPERATOR/GAS APPLIANCE REPAIRER APPROVED Yes PHILIPSTELEMONITORING Performing Organization Address [facility] Phone Number PHILIPSTELEMONITORING TELEMETRY WAVEFORMS (03/25/2018 6:59 PM) TELE COMMENTS KEB HR 70 PHILIPSTELEMONITORING TELE INTERPRETATION PHILIPSTELEMONITORING FOOT MITER OPERATOR/GAS APPLIANCE REPAIRER APPROVED Yes PHILIPSTELEMONITORING Performing Organization Address [facility] Phone Number PHILIPSTELEMONITORING TELEMETRY WAVEFORMS (03/25/2018 5:56 PM) TELE COMMENTS KEB HR 100 PHILIPSTELEMONITORING TELE INTERPRETATION PHILIPSTELEMONITORING FOOT MITER OPERATOR/GAS APPLIANCE REPAIRER APPROVED Yes PHILIPSTELEMONITORING Performing Organization Address [facility] Phone Number PHILIPSTELEMONITORING TELEMETRY WAVEFORMS (03/25/2018 11:58 AM) TELE RATE 0.13 PHILIPSTELEMONITORING TELE AK 0.19 PHILIPSTELEMONITORING TELE QRS 0.08 PHILIPSTELEMONITORING TELE COMMENTS SJA WITH PVCS PHILIPSTELEMONITORING TELE INTERPRETATION PHILIPSTELEMONITORING FOOT MITER OPERATOR/GAS APPLIANCE REPAIRER APPROVED Yes PHILIPSTELEMONITORING Performing Organization Address [facility] Phone Number [facility] Basic metabolic panel (03/25/2018 8:25 AM) Sodium 138 136 - 145 mmol/L [facility] Potassium 5.0 (H) 3.6 - 4.9 mmol/L [facility] Chloride 109 99 - 111 mmol/L [facility] CO2 23 20 - 36 mmol/L [facility] Anion Gap 6 [facility] Glucose 112 (H) 74 - 106 mg/dL [facility] Calcium 8.5 (L) 8.7 - 10.5 mg/dL [facility] BUN, Bld 36 (H) 6 - 20 mg/dL [facility] Creatinine 1.17 0.60 - 1.20 mg/dL [facility] eGFR 59 (L) >59 mL/min [facility] Specimen Blood Performing Organization Address [facility] Phone Number [facility] [address] [place] [address] CBC Without Differential (03/25/2018 8:25 AM) RBC 3.35 (L) 4.32 - 5.72 10E12/L [facility] Hemoglobin 10.3 (L) 13.5 - 17.5 g/dL [facility] Hematocrit 32.2 (L) 38.8 - 50.0 % [facility] MCV 96.1 (H) 81.2 - 95.1 fL [facility] MCH 30.7 26.0 - 34.0 pg [facility] MCHC 32.0 31.0 - 37.0 g/dL [facility] RDW 14.7 11.8 - 15.6 % [facility] Platelets 197 150 - 450 10E9/L [facility] WBC 8.8 3.5 - 10.5 10E9/L [facility] Specimen Blood Performing Organization Address [facility] Phone Number [facility] [address] [place] [address] TELEMETRY WAVEFORMS (03/25/2018 8:13 AM) TELE RATE 0.14 PHILIPSTELEMONITORING TELE AK 0.22 PHILIPSTELEMONITORING TELE QRS 0.09 PHILIPSTELEMONITORING TELE COMMENTS SJA PHILIPSTELEMONITORING TELE INTERPRETATION PHILIPSTELEMONITORING FOOT MITER OPERATOR/GAS APPLIANCE REPAIRER APPROVED Yes PHILIPSTELEMONITORING Performing Organization Address [facility] Phone Number PHILIPSTELEMONITORING TELEMETRY WAVEFORMS (03/24/2018 11:03 PM) TELE RATE 0.10 PHILIPSTELEMONITORING TELE QRS 0.10 PHILIPSTELEMONITORING TELE QT 0.40 PHILIPSTELEMONITORING TELE COMMENTS CW PHILIPSTELEMONITORING TELE INTERPRETATION PHILIPSTELEMONITORING FOOT MITER OPERATOR/GAS APPLIANCE REPAIRER APPROVED Yes PHILIPSTELEMONITORING Performing Organization Address [facility] Phone Number PHILIPSTELEMONITORING TELEMETRY WAVEFORMS (03/24/2018 7:39 PM) TELE COMMENTS [facility] PAC PVC HR 90 PHILIPSTELEMONITORING TELE INTERPRETATION PHILIPSTELEMONITORING FOOT MITER OPERATOR/GAS APPLIANCE REPAIRER APPROVED Yes PHILIPSTELEMONITORING Performing Organization Address [facility] Phone Number PHILIPSTELEMONITORING CBC Without Differential (03/24/2018 6:48 PM) RBC 3.92 (L) 4.32 - 5.72 10E12/L [facility] Hemoglobin 12.0 (L) 13.5 - 17.5 g/dL [facility] Hematocrit 37.9 (L) 38.8 - 50.0 % [facility] MCV 96.7 (H) 81.2 - 95.1 fL [facility] MCH 30.6 26.0 - 34.0 pg [facility] MCHC 31.7 31.0 - 37.0 g/dL [facility] RDW 14.8 11.8 - 15.6 % [facility] Platelets 199 150 - 450 10E9/L [facility] WBC 6.0 3.5 - 10.5 10E9/L [facility] Specimen Blood Performing Organization Address [facility] [facility] [address] [place] [address] TELEMETRY WAVEFORMS (03/24/2018 6:19 PM) TELE RATE 0.16 [facility]ITOR[facility] TELE QRS 0.06 PHILIPSTELEMONITORING TELE QT 0.40 [facility]ILIPSTELEMONITORING TELE COMMENTS LSM RSR HR 70 [facility]IPSTELE[facility]ITOR[facility] TELE INTERPRETATION PHILIPSTELEMONITORING FOOT MITER OPERATOR/GAS APPLIANCE REPAIRER APPROVED Yes [facility]ITORING Performing Organization Address [facility] Phone Number [facility] CBC Without Differential (03/24/2018 3:58 PM) RBC 4.34 4.32 - 5.72 10E12/L [facility] Hemoglobin 13.3 (L) 13.5 - 17.5 g/dL [facility] Hematocrit 42.3 38.8 - 50.0 % [facility] MCV 97.5 (H) 81.2 - 95.1 fL [facility] MCH 30.6 26.0 - 34.0 pg [facility] MCHC 31.4 31.0 - 37.0 g/dL [facility] RDW 14.6 11.8 - 15.6 % [facility] Platelets 172 150 - 450 10E9/L [facility] WBC 4.5 3.5 - 10.5 10E9/L [facility] Specimen Blood Performing Organization Address [facility] [facility] [address] [place], [place] [address] EKG 12 lead (03/24/2018 1:37 PM) Height in [facility] Heart Rate 69 bpm [facility] Interval 870 ms [facility] Atrial Rate 66 ms [facility] SV P-R Interval 139 ms [facility] P Duration 127 ms [facility] P Horizontal [place] 20 deg [facility] P Front [place] 49 deg [facility] Q Onset 502 ms [facility] QRSD Interval 113 ms [facility] QT Interval 431 ms [facility] QTcB 462 ms [facility] QTcF 451 ms [facility] QRS Horizontal [place] 27 deg [facility] QRS AXIS 9 deg [facility] I40 Horizontal [place] 91 deg [facility] I40 Front [place] 138 deg [facility] T-40 Horizontal [place] -60 deg PH[facility]IP[facility] T-40 Front [place] -11 deg [facility] T Horizontal [place] 62 deg [facility] T Wave [place] 28 deg [facility] S-T HORIZONTAL AXIS 99 deg [facility] S-T FRONT AXIS 201 deg [facility] ECG Impression - ABNORMAL ECG - [facility] ECG Impression SR [facility] ECG Impression Sinus rhythm [facility] ECG Impression normal P axis, V-rate 60-99 [facility] Performing Organization Address [facility] Phone Number [facility] in this encounter Visit Diagnoses Diagnosis Bladder tumor Neoplasm of unspecified nature of bladder Admitting Diagnoses Diagnosis Bladder cancer (HCC) Bladder cancer (HCC) Administered Medications Inactive Administered Medications - up to 3 most recent administrations Medication Order MAR Action Action Date Dose Rate Site HYDROcodone-acetaminophen (NORCO) 5-325 MG tablet 1-2 tablet 1-2 tablet EVERY 4 HOURS PRN, Oral, Moderate Pain, Starting 03/24/18 at 1239 , If one tablet is ineffective, and there are no side effects, may repeat 1 tablet in 60 minutes. If ineffective may proceed to oxycodone for moderate pain relief. Adults: Do not exceed 4000 mg from all sources in 24 hours. Pediatrics 0-12 years old: Do not exceed 5 doses per day or 75 mg/kg/day from all sources. levothyroxine (SYNTHROID) tablet 150 mcg Given 03/26/2018 06:11 CDT 150 mcg 150 mcg EVERY MORNING BEFORE BREAKFAST, Oral, First dose on 03/25/18 at 0700 Given 03/27/2018 06:00 CDT 150 mcg Given 03/28/2018 06:08 CDT 150 mcg oxyCODONE (ROXICODONE) immediate release tablet 5-15 mg 5-15 mg EVERY 4 HOURS PRN, Oral, Moderate Pain, Starting 03/24/18 at 1239, May use if hydrocodone ineffective. Give 5 mg for pain scale of 1-4 (mild pain), 10 mg for pain scale of 5-7 (moderate pain), and 15 mg for pain scale of 8-10(severe pain). traMADol (ULTRAM) tablet 50 mg 50 mg [...]
--- OUTSIDE RECORDS SUMMARY | 2018-03-28 15:40 | External Medical Summary | Encounter Summary ---
:1930 Author Organization [facility] Address [address] [place] [id number] Care Team Providers Name Role Phone Unavailable Primary Care Provider Unavailable Encounter Details Date Type Department Care Team Description 03/02/2018 Orders Only [facility] Patrice Campoverde Bladder tumor [address] Gamble MD (Primary Dx) [place] [address] [address] [phone] [place], [place] [id number] Social History Tobacco Use Types Packs/Day Years Used Date Never Assessed Sex Assigned at Date Recorded Not on file as of this encounter Plan of Treatment Not on fileas of this encounter Visit Diagnoses Diagnosis Bladder tumor - Primary Neoplasm of unspecified nature of bladder
--- OUTSIDE RECORDS SUMMARY | 2018-03-28 15:40 | External Medical Summary | Encounter Summary ---
:1930 Author Organization [facility] Address [address] [address] Care Team Providers Name Role Phone Unavailable Primary Care Provider Unavailable Encounter Details Date Type Department Care Team Description 03/01/2018 Chart Note [place] [facility] Patrice Campoverde MD [address] [facility] [address] [place], [place] [id number] [place] [id number] Social History Tobacco Use Types Packs/Day Years Used Date Never Assessed Sex Assigned at Date Recorded Not on file as of this encounter Progress Notes Patrice Campoverde MD - 03/01/2018 5:34 PM [facility] Procedure Note Pre-operative Diagnosis/Indications Post-operative Diagnosis: Same Procedure Details: The risks, benefits, complications, treatment options, and expected outcomes were discussed with thepatient. The patient concurred with the proposed plan, giving informed consent and the site was verified. The patient was placed in lithotomy position and the patient's genitalia was prepped and draped in the normal sterile fashion. 2% lidocaine jelly was instilled per urethra for local anesthesia. Cystoscopy was performed with a 16F flexible cystoscope using sterile technique. Findings: Anterior urethra: The urethra was normal in appearance with out any mucosal lesions, tumors or strictures. Prostate: about 3cm and with bilobar hypertrophy Bladder: There is a large bladder tumor in the left lateral wall papillary with associated necrosis and blood consistent with transitional cell carcinoma. Surrounding that there are multiple satellite tumors. On the posterior wall as well as other areas there are areas of micropapillary erythema consistent with CIS Also inside one of the diverticuli on the inferior portion there is a bladder tumor that is papillary as well. 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 The patient tolerated the procedure well and there were no complications. Complications: None; patient tolerated the procedure well. Disposition: To home after observation Condition: Stable Plan: I had an extensive discussion with both patient and his after the cystoscopy. 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 These all need to be resected. In my opinion there is greater than 5 cm of total surface area throughout the urinary bladder as well as some small tumors inside diverticuli. This is not a great situation. He is going to need a large TURBT with possible installation of mitomycin postoperatively as well as potential bilateral retrograde pyelography done at his convenience. For the most part he doesn't have any symptoms except for the gross hematuria so right now I think that he got to get preoperative medical clearance andwe can schedule this for him electively in [place]. We discussed all this at length and he and his state understanding. I will forward all of the information to surgery scheduling and they can contact him directly with specific arrangements. H/P / consult note: Urology Consultation Chief Complaint: INITIAL CONSULT, POSSIBLE BLADDER CA. History of Present Illness The patient is a 87 year old Male who was referred to Urology for consultation for INITIAL CONSULT, POSSIBLE BLADDER CA. He is an 87-year-old gentleman who presents today for my opinion on a mass on the bladder CT. He states that he developed gross total painless hematuria last a couple of months ago. He saw his primary care and was sent for CT scan of the abdomen and pelvis. Unfortunately this did demonstrate a hypervascular mass measuring about 2 cm on the left lateral wall of the bladder. He also has a number of bladder diverticuli. According the chart he had gross hematuria last year. CT scan was done in 2017 and did not have this mass. He was not referred for urologic consultation at that time according to the family. He hasn't had any other workup for this. He feels like he is able to void. I PSS score 18 out of 35 with a bother score of 5/6. Individual scores are 3, 3, 3, 3, 3, 5, one. Seen today with his . He denies any other acute complaints today. He apparently has had gross total hematuria intermittently over the last couple of months. He is able to empty. No retention or UTIs. Apparently he's reasonably free of a lot of major medical problems despite his age of 87. 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 Urinalysis that was done on 02/20/2018 demonstrated large blood. Past Medical History Gross hematuria, BPH, hypothyroidism, History of blood clot, BPH, ED, gastroesophageal reflux, history of esophageal stricture, allergic rhinitis, CHF , lower extremities edema, Parkinson's disease, aortic stenosis Past Surgical History Cholecystectomy and partial thyroidectomy Family Health History Several family members with diabetes including a brother and 2 sisters but not in his case. No genitourinary malignancies Social History He denies any ethanol tobacco or drug use. He is a never smoker. 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 He does have some skin tears on his arm. He denies any chest pain or shortness of breath or nausea or vomiting or diarrhea or constipation. He has lost proximally 40 pounds in the last year. He also has some lower extremity swelling.he also complains of some dark stools recently Physical Exam Vital Signs Temperature 98.1 pulse 64 respirations 14 blood pressure 132/81 In general he is a thin and somewhat frail 87-year-old gentleman in no acute distress. Head is atraumatic, normocephalic Eyes have extraocular muscles intact, corrective lenses noted Neck chemistries well-healed partial thyroidectomy scar Chest is clear to auscultation bilaterally Heart is regular rate and rhythm and there is a soft early systolic murmur Abdomen has soft and nontender without masses or abnormalities exam demonstrates normal external genitalia CLAUDIA was deferred Lower extremities have significant 3+ pitting edema up to the mid calf. He also has a number skin tears and very thin skin in the upper extremities Neurologically, grossly intact and he can walk with a reasonably normal gait. Psychologically grossly normal. Formal examination not done in that regard Lab Previous urinalysis done 02/20/2018 demonstrated large blood. Creatinine drawn on 11/30/2017 was 1.1 with normal glucose and electrolytes. AST and ALT slightly elevated. 42 as AST and alkaline phosphatase elevated somewhat at 161. Hemoglobin was 14.8 UA: See above Imaging: I personally reviewed the CT scan report and images done prior to the visit. This demonstrates an approximately 2 cm left lateral wall bladder mass at the edge of one of the diverticuli protruding intothe bladder consistent with a likely transitional cell carcinoma. There are multiple bladder diverticula as well as prostate enlargement noted that all of that is somewhat within normal limits for an 87-year-old. Impression: Gross total painless hematuria and bladder mass, BPH Plan: It was nice to meet [place] and his today. We spent about a half an hour in the clinic discussing his situation and the likelihood of this being a transitional cell carcinoma. We also discussed removal including TURBT here locally or at a your facility depending on equipment availability. Obviously, since he continues to have gross painless hematuria this is something that ought to be done soon butis not an emergency in the next week or so provided he doesn't have bleeding issues. I recommended cystoscopy for evaluation today and planning. See cystoscopy notes for additional details. in this encounter Plan of Treatment Not on fileas of this encounter Visit Diagnoses Not on filein this encounter
--- OUTSIDE RECORDS SUMMARY | 2018-03-28 15:40 | External Medical Summary | Continuity of Care Document ---
:1930 Author Organization [facility] Allergies Active Description Code Type Severity Reaction Onset Reported/ Identified Relationship Clinical to Patient Status Yes No Known 51444 Misce Moderate N/A Drug 998 llane Allergies ous Aller gy Yes NO NAME 44018 DRUG N/A N/A AVAILABLE Yes ASPIRIN 25999 DRUG N/A Other 03/06/ 03/06/2018 INGRE 2017 DI Medications Medication Packaging Start Stop Route Dosage Sig Date Date Intravenous 500 LEVOFLOXACIN IN D5W 8 ONCE 500 MG/100ML IV SOLN Intravenous 20 LACTATED RINGERS IV 8 CONTINUOUS SOLN Intravenous ROCURONIUM BROMIDE 8 PRN 50 MG/5ML IV SOLN Intravenous PROPOFOL 200 8 PRN MG/20ML IV EMUL Intravenous LIDOCAINE HCL 1 % 8 PRN IJ SOLN Intravenous PHENYLEPHRINE 8 PRN HCL-NACL 1-0.9 MG/10ML-% IV SOSY Intravenous DEXAMETHASONE 8 PRN SODIUM PHOSPHATE 4 MG/ML IJ SOLN Intravenous ONDANSETRON HCL 4 8 PRN MG/2ML IJ SOLN SUGAMMADEX SODIUM 8 PRN 200 MG/2ML IV SOLN Oral 650 ACETAMINOPHEN 325 8 EVERY 4 HOURS MG PO TABS PRN Intravenous 4 ONDANSETRON HCL 4 8 EVERY 6 HOURS MG/2ML IJ SOLN PRN 03/26/20 Oral 200 PHENAZOPYRIDINE HCL 8 18 EVERY 8 HOURS 100 MG PO TABS PRN Intravenous 4 ONDANSETRON HCL 4 8 ONCE PRN MG/2ML IJ SOLN Oral 4 ONDANSETRON 4 MG PO 8 ONCE PRN TBDP Intravenous 1000 LACTATED RINGERS IV 8 BOLUS BOLUS Intravenous 75 LACTATED RINGERS IV 8 CONTINUOUS SOLN Oral 150 LEVOTHYROXINE 8 EVERY MORNING SODIUM 150 MCG PO BEFORE TABS BREAKFAST SODIUM Intravenous 75 CHLORIDE 0.9 % IV 8 CONTINUOUS SOLN WHITE Topical 2 PETROLATUM GEL 8 TIMES DAILY PRN Problems Date Dx Attending Type Code Diagnosis Diagnosed By Coded 11/30/2017 JAREN MAN E039 Hypothyroidism, unspecified 11/30/2017 JAREN MAN I10 Essential (primary) hypertension 11/30/2017 JAREN MAN N390 Urinary tract infection, site not specified 11/30/2017 JAREN MAN R634 Abnormal weight loss 12/02/2017 JAREN MAN E0789 Other specified disorders of thyroid 12/05/2017 JAREN MAN R319 Hematuria, unspecified 12/05/2017 JAREN MAN R634 Abnormal weight loss 12/05/2017 JAREN MAN R748 Abnormal levels of other serum enzymes 02/20/2018 JAREN MAN E039 Hypothyroidism, unspecified 02/20/2018 JAREN MAN I10 Essential (primary) hypertension 02/20/2018 JAREN MAN R221 Localized swelling, mass and lump, neck 02/20/2018 JAREN MAN R319 Hematuria, unspecified 02/20/2018 JAREN MAN R5383 Other fatigue 02/20/2018 JAREN MAN R609 Edema, unspecified 02/20/2018 JAREN MAN R748 Abnormal levels of other serum enzymes 02/20/2018 JAREN MAN Z125 Encounter for screening for malignant neoplasm of prostate 03/01/2018 Jadiel FOWLER C672 Malignant neoplasm BRENDEN R of lateral wall of bladder 03/01/2018 Gisele FOWLER N329 Bladder disorder, BRENDEN R unspecified 03/01/2018 Gisele FOWLER N401 Benign prostatic BRENDEN R hyperplasia with lower urinary tract symptoms 03/01/2018 Gisele FOWLER R319 Hematuria, BRENDEN R unspecified 03/05/2018 JAREN MAN K219 Gastro-esophageal reflux disease without esophagitis 03/05/2018 JAREN MAN R0989 Other specified symptoms and signs involving the circulatory and respiratory systems 03/05/2018 MAGDA FADIAMARIA E S R531 Weakness 03/07/2018 Gisele FOWLER D414 Neoplasm of BRENDEN R uncertain behavior of bladder 03/07/2018 Jadiel FOWLER R19641 Encounter for other BRENDEN R preprocedural examination 03/14/2018 VIANNEY CAMARENA S C679 Malignant neoplasm of bladder, unspecified 03/14/2018 VIANNEY CAMARENA S D120 Benign neoplasm of cecum 03/14/2018 VIANNEY CAMARENA S K5730 Diverticulosis of large intestine without perforation or abscess without bleeding 03/14/2018 VIANNEY CAMARENA P K921 Melena 03/14/2018 VIANNEY CAMARENA S R634 Abnormal weight loss 03/28/2018 Maegan FOWLER C67.8 Malignant neoplasm BRENDEN R of overlapping sites of bladder (HCC) 03/28/2018 Jadiel FOWLER C67.9 Malignant neoplasm BRENDEN R of bladder, unspecified (HCC) 03/28/2018 Maegan FOWLER D49.4 Neoplasm of BRENDEN R unspecified behavior of bladder Procedures There is no data. Results Test Result Range CBC W/ DIFF - 11/30/17 13:45 CBC W/ DIFF LAB NRG WBC 4.9 x10^3 4.8 - 10.8 RBC 4.80 x10^6 4.70 - 6.10 HEMOGLOBIN 14.8 g/dL 14.0 - 18.0 HEMATOCRIT 44.2 % 42.0 - 52.0 MCV 92 fL 80 - 100 MCH 30.8 pg 27.0 - 33.0 MCHC 33.5 g/dL 33.0 - 37.0 RDW 14.6 % 11.5 - 14.5 PLATELETS 250 x10^3 150 - 450 MPV 10.4 fL 7.8 - 11.0 NEUTROPHILS 67.5 % 40.0 - 80.0 LYMPHOCYTES 19.7 % 20.0 - 45.0 MONOCYTES 10.4 % 0.0 - 10.0 EOSINOPHILS 1.8 % 0.0 - 5.0 BASOPHILS 0.4 % 0.0 - 2.0 IMMATURE GRAN 0.2 % 0.0 - 2.0 NUCLEATED RBC'S 0.0 % 0.0 - 1.0 REFLEX MAN DIFF NO NRG COMP METABOLIC - 11/30/17 13:45 COMP METABOLIC LAB NRG GLUCOSE 99 mg/dL 70 - 110 BUN 31 mg/dL 7 - 18 CREATININE 1.10 mg/dL 0.60 - 1.30 AGE 87 YEARS NRG GFR 63.3 60.0 - 120 SODIUM 140 mmol/L 136 - 145 POTASSIUM 4.2 mmol/L 3.5 - 5.1 CHLORIDE 104 mmol/L 98 - 107 CO2 23 mmol/L 21 - 32 CALCIUM 9.6 mg/dL 8.5 - 10.1 AST 42 U/L 15 - 37 ALT 40 U/L 12 - 78 ALKALINE PHOS 161 U/L 46 - 116 TOTAL PROTEIN 7.5 g/dL 6.4 - 8.2 ALBUMIN 3.8 g/dL 3.4 - 5.0 TOTAL BILI 0.70 mg/dL 0.00 - 1.00 THYROXINE (T4) FREE - 11/30/17 13:45 FT4 1.60 ng/dL 0.76 - 1.46 TSH - 11/30/17 13:45 TSH 0.59 uIU/mL 0.36 - 3.74 UA AUTO W/ MICRO - 11/30/17 13:50 GLUCOSE Negative NORMAL: Negative UA AUTO W/ MICRO LAB NRG COLOR Yellow NORMAL: Yellow APPEARANCE Clear NORMAL: Clear BILIRUBIN Negative NORMAL: Negative KETONE Negative NORMAL: Negative SPEC GRAVITY 1.015 NORMAL: 1.005-1.030 BLOOD Moderate NORMAL: Negative PROTEIN Trace NORMAL: Negative PH 5.5 NORMAL: 5.0-8.0 UROBILINOGEN 1.0 NORMAL: Negative NITRITE Negative NORMAL: Negative LEUKOCYTES Negative NORMAL: Negative MICRO RBC 5-10 NORMAL: 0-2 MICRO WBC 10-20 NORMAL: 0-2 BACTERIA Trace NORMAL: None-Trace EPI CELLS 0-5 NORMAL: 0-15 MUCUS None Seen NORMAL: None-Small AMORPHOUS None Seen NORMAL: None Seen YEAST None Seen NORMAL: None Seen CRYSTALS None Seen NORMAL: None Seen CAST Hyaline C NORMAL: None Seen URINE CULTURE? YES NRG CBC W/ DIFF - 02/20/18 14:15 CBC W/ DIFF LAB NRG WBC 3.4 x10^3 4.8 - 10.8 RBC 4.71 x10^6 4.70 - 6.10 HEMOGLOBIN 14.5 g/dL 14.0 - 18.0 HEMATOCRIT 43.8 % 42.0 - 52.0 MCV 93 fL 80 - 100 MCH 30.8 pg 27.0 - 33.0 MCHC 33.1 g/dL 33.0 - 37.0 RDW 15.1 % 11.5 - 14.5 PLATELETS 196 x10^3 150 - 450 MPV 10.2 fL 7.8 - 11.0 NEUTROPHILS 50.1 % 40.0 - 80.0 LYMPHOCYTES 32.1 % 20.0 - 45.0 MONOCYTES 13.1 % 0.0 - 10.0 EOSINOPHILS 3.8 % 0.0 - 5.0 BASOPHILS 0.9 % 0.0 - 2.0 IMMATURE GRAN 0.0 % 0.0 - 2.0 NUCLEATED RBC'S 0.0 % 0.0 - 1.0 REFLEX MAN DIFF NO NRG COMP METABOLIC - 02/20/18 14:15 COMP METABOLIC LAB NRG GLUCOSE 98 mg/dL 70 - 110 BUN 24 mg/dL 7 - 18 CREATININE 0.98 mg/dL 0.60 - 1.30 AGE 87 YEARS NRG GFR 72.4 60.0 - 120 SODIUM 139 mmol/L 136 - 145 POTASSIUM 4.4 mmol/L 3.5 - 5.1 CHLORIDE 104 mmol/L 98 - 107 CO2 27 mmol/L 21 - 32 CALCIUM 9.4 mg/dL 8.5 - 10.1 AST 38 U/L 15 - 37 ALT 38 U/L 14 - 63 ALKALINE PHOS 132 U/L 46 - 116 TOTAL PROTEIN 7.1 g/dL 6.4 - 8.2 ALBUMIN 3.7 g/dL 3.4 - 5.0 TOTAL BILI 0.70 mg/dL 0.00 - 1.00 TSH - 02/20/18 14:15 TSH 0.15 uIU/mL 0.36 - 3.74 PSA - SCREENING - 02/20/18 14:15 PSA SCREEN 2.13 ng/mL 0.00 - 4.00 PRO B-TYPE NATRIURETIC PEPTIDE - 02/20/18 14:15 PBNP 273 pg/mL 0 - 450 THYROXINE (T4) FREE - 02/20/18 14:15 FT4 1.83 ng/dL 0.76 - 1.46 OCCULT BLOOD STOOL IMMUNOASSAY - 02/21/18 03:45 OCC BLOOD IM NEGATIVE NORMAL: NEGATIVE CBC (HEMOGRAM ONLY) - 03/07/18 08:00 WBC 4.4 x10^3 4.8 - 10.8 RBC 4.39 x10^6 4.70 - 6.10 HEMOGLOBIN 13.6 g/dL 14.0 - 18.0 HEMATOCRIT 41.1 % 42.0 - 52.0 MCV 94 fL 80 - 100 MCH 31.0 pg 27.0 - 33.0 MCHC 33.1 g/dL 33.0 - 37.0 RDW 15.2 % 11.5 - 14.5 PLATELETS 212 x10^3 150 - 450 MPV 9.8 fL 7.8 - 11.0 CBC (HEMOGRAM ONLY) LAB NRG COMP METABOLIC - 03/07/18 08:00 COMP METABOLIC LAB NRG GLUCOSE 82 mg/dL 70 - 110 BUN 23 mg/dL 7 - 18 CREATININE 0.97 mg/dL 0.60 - 1.30 AGE 87 YEARS NRG GFR 73.2 60.0 - 120 SODIUM 141 mmol/L 136 - 145 POTASSIUM 3.9 mmol/L 3.5 - 5.1 CHLORIDE 106 mmol/L 98 - 107 CO2 27 mmol/L 21 - 32 CALCIUM 9.0 mg/dL 8.5 - 10.1 AST 39 U/L 15 - 37 ALT 45 U/L 14 - 63 ALKALINE PHOS 131 U/L 46 - 116 TOTAL PROTEIN 6.6 g/dL 6.4 - 8.2 ALBUMIN 3.4 g/dL 3.4 - 5.0 TOTAL BILI 0.60 mg/dL 0.00 - 1.00 CBC WITHOUT DIFFERENTIAL - 03/24/18 15:58 HEMATOCRIT 42.3 % 38.8-50.0 HEMOGLOBIN 13.3 g/dL 13.5-17.5 MEAN CORPUSCULAR HEMOGLOBIN 30.6 pg 26.0-34.0 MEAN CORPUSCULAR HEMOGLOBIN CONC 31.4 g/dL 31.0-37.0 MEAN CORPUSCULAR VOLUME 97.5 fL 81.2-95.1 PLATELET COUNT 172 10E9/L 150-450 RED BLOOD CELL COUNT 4.34 10E12/L 4.32-5.72 RED CELL DISTRIBUTION WIDTH 14.6 % 11.8-15.6 [id number] 4.5 10E9/L 3.5-10.5 CBC WITHOUT DIFFERENTIAL - 03/24/18 18:48 HEMATOCRIT 37.9 % 38.8-50.0 HEMOGLOBIN 12.0 g/dL 13.5-17.5 MEAN CORPUSCULAR HEMOGLOBIN 30.6 pg 26.0-34.0 MEAN CORPUSCULAR HEMOGLOBIN CONC 31.7 g/dL 31.0-37.0 MEAN CORPUSCULAR VOLUME 96.7 fL 81.2-95.1 PLATELET COUNT 199 10E9/L 150-450 RED BLOOD CELL COUNT 3.92 10E12/L 4.32-5.72 RED CELL DISTRIBUTION WIDTH 14.8 % 11.8-15.6 [id number] 6.0 10E9/L 3.5-10.5 CBC WITHOUT DIFFERENTIAL - 03/25/18 08:25 HEMATOCRIT 32.2 % 38.8-50.0 HEMOGLOBIN 10.3 g/dL 13.5-17.5 MEAN CORPUSCULAR HEMOGLOBIN 30.7 pg 26.0-34.0 MEAN CORPUSCULAR HEMOGLOBIN CONC 32.0 g/dL 31.0-37.0 MEAN CORPUSCULAR VOLUME 96.1 fL 81.2-95.1 PLATELET COUNT 197 10E9/L 150-450 RED BLOOD CELL COUNT 3.35 10E12/L 4.32-5.72 RED CELL DISTRIBUTION WIDTH 14.7 % 11.8-15.6 [id number] 8.8 10E9/L 3.5-10.5 BASIC METABOLIC PANEL - 03/25/18 08:25 ANION GAP 6 BUN BLOOD 36 mg/dL 6-20 CALCIUM 8.5 mg/dL 8.7-10.5 CHLORIDE 109 mmol/L 99-111 CO2 23 mmol/L 20-36 CREATININE 1.17 mg/dL 0.60-1.20 EGFR 59 mL/min >59 GLUCOSE 112 mg/dL 74-106 POTASSIUM 5.0 mmol/L 3.6-4.9 SODIUM 138 mmol/L 136-145 CBC WITHOUT DIFFERENTIAL - 03/26/18 07:03 HEMATOCRIT 26.5 % 38.8-50.0 HEMOGLOBIN 8.5 g/dL 13.5-17.5 MEAN CORPUSCULAR HEMOGLOBIN 31.3 pg 26.0-34.0 MEAN CORPUSCULAR HEMOGLOBIN CONC 32.1 g/dL 31.0-37.0 MEAN CORPUSCULAR VOLUME 97.4 fL 81.2-95.1 PLATELET COUNT 140 10E9/L 150-450 RED BLOOD CELL COUNT 2.72 10E12/L 4.32-5.72 RED CELL DISTRIBUTION WIDTH 15.1 % 11.8-15.6 [id number] 9.7 10E9/L 3.5-10.5 BASIC METABOLIC PANEL - 03/26/18 07:03 ANION GAP 5 BUN BLOOD 31 mg/dL 6-20 CALCIUM 7.9 mg/dL 8.7-10.5 CHLORIDE 108 mmol/L 99-111 CO2 23 mmol/L 20-36 CREATININE 0.87 mg/dL 0.60-1.20 EGFR > mL/min >59 GLUCOSE 98 mg/dL 74-106 POTASSIUM 4.1 mmol/L 3.6-4.9 SODIUM 136 mmol/L 136-145 Encounters ACCT Visit Discharge Status Pt. Provider Facility Loc./Unit Complaint No. Date/Time Type [id number] 03/14/2018 03/14/2018 DIS Joslyn CAMARENA, 001 EGD 08:27:00 12:00:00 willian Becker COLONOSCOPY [id number] 03/07/2018 03/07/2018 CLS Joslyn FOWLER, PREOP LAB 07:49:00 23:59:59 willian WILCOX EKG XR CHEST R [id number] 03/05/2018 03/05/2018 DIS Emergen MAGDA, CHOKED ON 07:35:00 08:39:00 ovidio EASTMAN FOOD, POSS ASPIRATION [id number] 03/01/2018 03/01/2018 DIS Joslyn FOWLER, INITIAL 15:18:00 15:18:00 willian WILCOX CONSULT, R [place] BLADDER [place] [id number] 02/20/2018 02/20/2018 MARCO MAN, LAB/CT 14:01:00 23:59:59 willian EASTMAN [id number] 12/05/2017 12/05/2017 BRYAN MAN, CT ABD 09:46:00 09:46:00 willian EASTMAN [id number] 12/02/2017 12/02/2017 BRYAN MAN, SOFT 10:28:00 10:28:00 willian EASTMAN TISSUE [id number] 11/30/2017 11/30/2017 MARCO MAN, LAB 13:38:00 23:59:59 ent JAREN [id number] 10/26/2016 ACT Unknown [id number] 09:38:00 16 [id number] 08/11/2016 ACT Unknown [id number] 12:41:00 21 [id number] 12/10/2015 ACT Unknown [id number] 10:27:00 28 [id number] 05/06/2014 ACT Unknown [id number] 10:37:00 22 [id number] 04/19/2014 ACT Unknown [id number] 10:47:00 08 [id number] 2014 ACT Unknown [id number] 08:54:00 13 [id number] 12/03/2013 ACT Unknown [id number] 10:23:00 20 [id number] 08/24/2013 ACT Unknown [id number] 11:18:00 13 [id number] 08/21/2013 ACT Unknown [id number] 08:58:00 10 KSWeSindhu 08/21/2013 ACT Documen 09:01:23 t Registr ation [id number] 03/24/2018 Documen 912 11:00:37 t Registr ation [id number] 03/24/2018 ACT Kira Stanley [id number] 193 08:32:22 [id number] 03/02/2018 Documen 992 14:01:10 t Registr ation [id number] 03/01/2018 Documen 103 17:35:10 t Registr ation
--- OUTSIDE RECORDS SUMMARY | 2018-03-28 15:40 | External Medical Summary | Encounter Summary ---
:1930 Author Organization [facility] Address [address] [place] [address] Care Team Providers Name Role Phone Unavailable Primary Care Provider Unavailable Encounter Details Date Type Department Care Team Description 03/02/2018 Prep for Surgery [facility] Patrice Campoverde, [address] [facility] [place] [address] [address] [phone] [place] [address] Social History Tobacco Use Types Packs/Day Years Used Date Never Assessed Sex Assigned at Date Recorded Not on file as of this encounter Progress Notes Rosa Goel - 03/02/2018 1:47 PM CDTPatient is scheduled for a cysto, TUR large BT and possible Mitomycin instillation at on 03/17/[address] Campoverde. (Conf. # [id number]) Patient was notified of the surgery, date and time. A preop clearance appt is scheduled with the patient's PCP, Dr. Raquel Kam, in [place], [place] on 03/07/2018 @ 9:15 am to include a CBC, Comp Panel & EKG. Dr. aKm's office will fax the results to . Preoperative instructions were reviewed over the phone with the patient's and a copy of the written instructions were sent to them. All questions were answered and the patient did voice understanding. rabia Patient has [facility] 03/10/2018 - Patient is scheduled on 03/17/[address]UR BT. Dr. Campoverde notified this office today he will not be back from his trip on 03/17/2018 and Mr. Tang' surgery needs to be rescheduled.I spoke with the patient's and she was understanding. The procedure was rescheduled for 03/24/2018. Preop instructions were reviewed and the patient's voiced understanding. jpin this encounter Plan of Treatment Not on fileas of this encounter Visit Diagnoses Not on filein this encounter
--- OUTSIDE RECORDS SUMMARY | 2018-03-28 15:40 | External Medical Summary | Encounter Summary ---
:1930 Author Organization [facility] Address [address] [place] [address] Care Team Providers Name Role Phone Unavailable Primary Care Provider Unavailable Encounter Details Date Type Department Care Team Description 03/24/2018 Procedure Pass [facility] [id number] [place] [address] Social History Tobacco Use Types Packs/Day Years Used Date Never Smoker Smokeless Tobacco: Never Used Alcohol Use Drinks/Week oz/Week Comments No Sex Assigned at Date Recorded Not on file as of this encounter Plan of Treatment Not on fileas of this encounter Visit Diagnoses Not on filein this encounter
--- OUTSIDE RECORDS SUMMARY | 2018-03-28 15:40 | External Medical Summary | Encounter Summary ---
:1930 Author Organization [facility] Address [address] [address] Care Team Providers Name Role Phone Unavailable Primary Care Provider Unavailable Reason for Visit Reason Comments Reschedule Appointment Reschedule surgery Encounter Details Date Type Department Care Team Description 03/10/2018 Telephone Braulio [facility]illo[facility] Patrice Campoverde Reschedule Appointment [address] Gamble MD (Reschedule surgery) [place] [address] [address] [phone] [place] [address] Social History Tobacco Use Types Packs/Day Years Used Date Never Smoker Smokeless Tobacco: Never Used Alcohol Use Drinks/Week oz/Week Comments No Sex Assigned at Date Recorded Not on file as of this encounter Plan of Treatment Not on fileas of this encounter Visit Diagnoses Not on filein this encounter
--- OUTSIDE RECORDS SUMMARY | 2018-03-28 15:40 | External Medical Summary | Encounter Summary ---
:1930 Author Organization [facility] Address [address] [place] [address] Care Team Providers Name Role Phone Unavailable Primary Care Provider Unavailable Reason for Visit Auth/Cert Status Reason Specialty Diagnoses / Procedures Referred By Contact Referred To Contact Diagnoses Bladder cancer (HCC) Bladder cancer (HCC) Procedures CYSTOSCOPY, TRANSURETHRAL RESECTION BLADDER TUMOR Encounter Details Date Type Department Care Team Description 03/24/2018 Anesthesia Event [facility] Matt Velasco MD [address] [place], [id number] [place] [address] [place] [address] [phone] Anesthesia Record Procedure Summary Procedure Name Responsible Anesthesia Start Anesthesia Stop Anesthesiologist Time Time CYSTOSCOPY, Matt Velasco MD 03/24/18 1040 03/24/18 1240 TRANSURETHRAL RESECTION BLADDER TUMOR (N/A ) Events Date Time Event Comment 03/24/2018 1039 AN Equip Check 1040 An Start 1040 An Start Data 1048 An Induction The patient was reevaluated immediately before moderate or deep sedation use and before anesthesia induction. 1051 An Intubation 1101 Procedure Start 1101 Skin Incision 1139 Quick Note Foil bouffant placed on patient's head, humidifier placed on patient circuit. 1227 Procedure Stop 1235 An Extubation 1237 an stop data 1237 Transporting Patient 1240 An Stop I completed my SBAR handoff to the receiving nurse, which included the followin. Identification of patient 2. Identification of responsible practitioner (primary service) 3. Discussion of pertinent medical history 4. Discussion of the surgical/procedure course (procedure, reason for surgery, procedure performed) 5. Intraoperative anesthetic management and issue/concerns to include things such as airway, hemodynamic, narcotic, sedation level and paralytic management and intravenous fluids/blood products and urine output during the procedure 6. Expectations/Plans for the early post-procedure period to include things such as the anticipated course (anticipatory guidance), complications, need for laboratory or ECG and medication administration 7. Opportunity for questions and acknowledgement of understanding of report from the receiving PACU/ICU team I, Matt Velasco MD, hereby attest that the medical record entry for 03/24/2018 accurately reflect signatures/notations that I made when I treated/diagnosed the above listed patient. I do hereby attest that this information is true, accurate and complete to the best of my knowledge and I understand that any falsification, omission, or concealment of material fact may subject me to administrative, civil, or criminal liability. I was present and participated throughout the entire anesthetic and all procedures for the time I am assigned in the staff form. 9728 Recovery Care Complete Name Total lidocaine 1% injection 50 mg fentaNYL 50 mcg/ml injection 100 mcg propofol 10 mg/mL bolus 150 mg rocuronium 10mg/mLbolus 90 mg ondansetron 2mg/mLinjection 4 mg dexamethasone 4mg/mLinjection 8 mg phenylephrine 0.1mg/mLsyringe 600 mcg levoFLOXacin in D5W (LEVAQUIN) IVPB 500 mg 500 mg sugammadex 20mg/mLinjection 154 mg lactated ringers infusion 1,000 mL Agents Name O2 Air Sevoflurane Blood No blood administrations on file. Lines, Drains, and Airways Type Details Placement Removal Urethral Catheter Perioperative use in 03/24/18 1220 by selected surgeries; Rita mSall RN 03/24/18; 1220; 1; Triple-lumen (3-way); 24 Fr.; Yes Peripheral IV Place Date: 03/24/18; Place 03/24/18 0909 by 03/28/18 1201 by Time: 09; Size: 22 G; Aruna Toledo, RN Kade, Luis Angel, PCT Orientation: Left; Location: Hand; Prep: Chlorhexidine; Attempts: 2 (1-right wrist); Blood drawn? No; Dressing: Gauze, Tegaderm, Plastic Tape, Extension Tubing; Flush: Normal Saline, 10 ml; Patient Tolerance: Tolerated well; Removal Time: 1201; Removal Date: 03/28/18; Removal Reason: Discharge; Intact? Yes Peripheral IV Place Date: 03/24/18; Place 03/24/18 1100 by 03/26/18 0805 by Time: 1100; Size: 20 G; Matt Velasco MD Lewis, Lauren R, RN Twin cath? No; Orientation: Left; Location: Wrist; Prep: Chlorhexidine; Local: Bacteriostatic NS; Attempts: 1; Blood drawn? No; Flush: Yes, 3 ml, Normal Saline; Patient Tolerance: Tolerated well; Removal Time: 0805; Removal Date: 03/26/18; Removal Reason: Removed by patient ETT Placement Date: 03/24/18; 03/24/18 1102 by 03/24/18 1235 by Placement Time: 1102 Matt Velasco MD Grimes, Ryan M, MD (created via procedure documentation); Technique: direct laryngoscopy, stylet; Type: Cuffed; Tube Type: Oral; Laryngoscope: Mac-3; Grade View: 2; Placement Verification: Auscultation, End tidal CO2; Measured from: Lips; Secured by: Plastic tape; Airway Placement: Atraumatic; Removal Time: 123; Removal Date: 03/24/18 in this encounter Social History Tobacco Use Types Packs/Day Years Used Date Never Smoker Smokeless Tobacco: Never Used Alcohol Use Drinks/Week oz/Week Comments No Sex Assigned at Date Recorded Not on file as of this encounter Plan of Treatment Not on fileas of this encounter Visit Diagnoses Not on filein this encounter Administered Medications Inactive Administered Medications - up to 3 most recent administrations Medication Order MAR Action Action Date Dose Rate Site dexamethasone (DECADRON) injection Given 03/24/2018 11:04 CDT 8 mg PRN, Intravenous, Starting Tue03/24/18 at 1104, Anesthesia Intra-op fentaNYL (SUBLIMAZE) injection Given 03/24/2018 10:48 CDT 50 mcg PRN, Intravenous, Severe Pain, Starting Tue03/24/18 at 1048, Anesthesia Intra-op Given 03/24/2018 12:30 CDT 50 mcg lactated ringers infusion New Bag 03/24/2018 09:12 CDT 20 mL/hr 20 mL/hr 20 mL/hr, Intravenous, CONTINUOUS, Starting Tue03/24/18 at 0915, Pre-op New Bag 03/24/2018 10:48 CDT New Bag 03/24/2018 12:29 CDT levoFLOXacin in D5W (LEVAQUIN) IVPB 500 mg Given 03/24/2018 10:45 CDT 500 mg 500 mg ONCE, Intravenous, Administer over 60 Minutes, Tue03/24/18 at 0915, For 1 dose, To be given in the OR suite prior to incision. lidocaine (XYLOCAINE) 1 % injection Given 03/24/2018 10:48 CDT 50 mg PRN, Intravenous, Starting Tue03/24/18 at 1048, Anesthesia Intra-op ondansetron (ZOFRAN) injection Given 03/24/2018 12:27 CDT 4 mg PRN, Intravenous, Nausea, Starting Tue03/24/18 at 1227, Anesthesia Intra-op phenylephrine (AUSTYN-SYNEPHRINE) 1-0.9 MG/10ML-% Given 03/24/2018 11:54 CDT 100 mcg injection PRN, Intravenous, Starting Tue03/24/18 at 1102, Anesthesia Intra-op Given 03/24/2018 11:57 CDT 100 mcg Given 03/24/2018 12:09 CDT 200 mcg propofol (DIPRIVAN) injection Given 03/24/2018 10:48 CDT 150 mg PRN, Intravenous, Starting Tue03/24/18 at 1048, Anesthesia Intra-op rocuronium (ZEMURON) injection Given 03/24/2018 11:05 CDT 20 mg PRN, Intravenous, Starting Tue03/24/18 at 1048, Anesthesia Intra-op Given 03/24/2018 11:31 CDT 10 mg Given 03/24/2018 11:57 CDT 10 mg sugammadex (BRIDION) injection Given 03/24/2018 12:29 CDT 154 mg PRN, Starting Tue03/24/18 at 1229, Anesthesia Intra-op in this encounter
[2018-03-28 16:09] VITALS: BMI 24.0
[2018-03-28] MEDS ORDERED: PHENAZOPYRIDINE 95 MG TABLET PO PRN (16:15)
--- NOTE | 2018-03-28 16:32 | IRU History & Physical Report ---
HPI IRU Date: Date: 03/28/18 Time: 1620 Chief complaint: I've had bleeding in my urine HPI: Mr. Tang is a very pleasant 88-year-old male from [facility]. Referring physician is Patrice Campoverde M.D. and his primary care provider is Judson Iniguez APRN with Dr. Kam in [place]. History is obtained predominantly from the patient but also from transfer records. The patient reports that he has had gross hematuria for about a year off and on. A prior CT scan failed to reveal abnormalities. However, a more recent CT scan of the abdomen and pelvis demonstrated a quite hypervascular mass about 2 cm on the left lateral wall the bladder. He was evaluated and found to have large bladder tumors. He was admitted to [facility] on or about 03/24/2018 for TUR of bladder tumor. Date of procedure was . Operative findings indicated "tumor everywhere, in diverticuli, all over. All visible tumor resected. Hemostasis good." Estimated blood loss at that time was 50 mL. Postoperatively the patient was placed on continuous bladder irrigation. The catheter was recommended to stay in until or Tuesday, March 30 or at which time the bladder was to be filled and then the catheter pulled. The patient continues to have evidence of dark urine in the catheter as anticipated. However there is no evidence of active bleeding. As a result of his resection of the bladder tumor and his advanced age, he has sustained multiple functional deficits. Prior to this episode the patient states that he was incontinent of urine from time to time. In addition he reports his bowels typically have been a bit on the loose side. Because of the patient's large and extensive bladder tumor he is at risk of significant further hemorrhage which may be exacerbated by lifting, pushing, pulling and doing physical therapy and occupational therapy. For this reason he requires inpatient rehabilitation to monitor his bleeding, anemia and to assess and monitor any evidence of hypotension. We obtain records from his accounting intern Dr. Harjit Oswald in [place]. Date of office visit we have available is 02/25/2016. At that time he is listed as having congestive heart failure and aortic stenosis. However we do not have access to any echocardiograms and quantification of CHF and aortic stenosis is not available in the records we have to review. We also contacted his primary care provider and they did not have a copy of any echocardiogram. 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 He lives with his in their own home in [facility]. He has 1 step to get into his home and back and no steps in front. He does have a front-wheeled walker which he uses from time to time. He was independent with eating, grooming, bathing and upper body dressing. He did require maximum assistance for lower body dressing but was modified independent for toileting, independent for transfers and modified independent for toilet transfers. He did use a front-wheeled walker at home. He reports that he did fall one time in the last 12 months. Currently the patient is modified independent for eating, requires minimum assistance for grooming, maximum assistance for bathing, supervision for upper body dressing but maximum assistance for lower body dressing. He requires maximum assistance for toileting, minimum assistance for bed/chair/wheelchair transfers, toilet transfers and walking with a rolling walker 30 feet. He does demonstrate decreased strength, safety awareness and decreased ability to perform self-cares. He demonstrates decreased ability to perform functional transfers as well as demonstrating generalized debilitation and decreased endurance. He has not safe for dismissal to his home. He was admitted to acute inpatient rehabilitation to improve his functional status as well as to monitor evidence of bleeding and anemia. The patient does have a hemoglobin of 8.5 on 03/26/2018. I am not aware of his previous hemoglobin. The patient seems to have an irregular heart rhythm although it could be PVCs or PACs. He does not have a history of known atrial fibrillation. The following medical conditions are noted and require active monitoring and/or management: 1. Recent transurethral resection of very large and extensive bladder tumors with risk of continued bleeding, risk of urinary retention, risk of further anemia. He is also at risk for hypotension if he continues to lose blood. Because of the requirement to improve his functional capacity, physical therapy and occupational therapy and additional activity may result in increased intra- abdominal and pelvic pressure resulting in additional bleeding which needs to be monitored carefully. 2. Acute blood loss anemia with hemoglobin 8.5 at risk for further bleeding. 3. Reported history of congestive heart failure, not quantified. We will need to manage his fluid balance carefully in order to avoid excess fluid or deficiency resulting in hypotension. 4. Reported 50 pound weight loss over the past 2 months for uncertain reasons. This is reported from the patient and is not further verified at this time. The following therapies will be needed: 1. Physical therapy: for transfers and ambulation and stairs. 2. Occupational therapy: for ADL's and transfers. 3. Medical management: for the above conditions. 4. 24 hour Rehabilitation Nursing to monitor and address the following: Bladder training, catheter management, monitoring for additional bleeding, monitoring blood pressures and pulse in view of the anemia. 5. Dietitian: In view of the reported 50 pound weight loss. PFSH 1. Hypothyroidism apparently following resection of goiter 2. Large bladder tumors, malignant 3. Reported history of congestive heart failure, not quantified 4. Reported history of aortic stenosis, not quantified Surgical History: 1. Resection of goiter for nonmalignant etiology. 2. Transurethral resection of large bladder tumors. 3. Cholecystectomy. 4. Tonsillectomy and adenoidectomy Family History: Patient's father of cancer in his 80s. Mother of heart disease in her 90s. Family history also positive for diabetes. - Social History Smoking status: Never smoker Substance use type: does not use Alcohol intake: never Alcohol intake frequency: does not drink Housing: house Household members: spouse Current occupational status: employed Current residence: Apartment/Private Home Social history: Patient remains very active despite his advanced age. 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 However it is also noted that he is required assistance at home for some activities. He does use a front-wheeled walker at home. He lives with his in their own home. Review of Systems - Constitutional Constitutional: Present: fatigue, weight loss (patient states he has lost some 50 pounds in the last couple of months.). Absent: anorexia, chills, fever(s), headache(s), lethargy, malaise, night sweats, weakness, weight gain - EENMT Eyes: Absent: blurry vision, change in vision, diplopia Mouth/Throat: Absent: changes in swallowing, painful swallowing, change in taste , bleeding gums, change in voice - Cardiovascular Cardiovascular: Present: dyspnea on exertion (occasional dyspnea with activity is reported.). Absent: chest pain, palpitations, syncope, orthopnea, edema, cyanosis, heart murmur Rhythm: Present: regular rhythm Vascular: Absent: intermittent claudication, pedal edema, unilateral swelling - Respiratory Respiratory: Present: dyspnea on exertion. Absent: cough, dyspnea, hemoptysis, wheezing, pain on inspiration, chest congestion, excessive phlegm production - Gastrointestinal Gastrointestinal: Absent: abdominal pain, change in bowel habits, constipation, diarrhea, dyspepsia, dysphagia, early satiety, hematochezia, melena, nausea, vomiting Gastrointestinal Comments: He reports occasional loose stools. - Genitourinary Genitourinary: Present: hematuria, urinary incontinence - Musculoskeletal Musculoskeletal: Absent: abnormal gait, arthralgias, back pain, joint swelling, limited range of motion, muscle weakness - Integumentary/Breasts Integumentary: Absent: alopecia, erythema, lesions, pruritus, rash, jaundice - Neurological Neurological: Absent: abnormal gait, abnormal movements, abnormal speech, confusion, convulsions, dizziness, focal weakness, frequent falls, headache(s), loss of vision, memory loss, numbness, paresthesias, tremor(s) - Psychiatric Psychiatric: Absent: abnormal sleep pattern, anxiety, depression - Endocrine Endocrine: Absent: cold intolerance, flushing, heat intolerance, palpitations - Hematologic/Lymphatic Hematologic/Lymphatic: Absent: easy bleeding, easy bruising, lymphadenopathy - Allergic/Immunologic Allergic/Immunologic: Absent: urticaria Medications Home Medications Medication Instructions Recorded Confirmed Type Docusate Sodium [Colace] 1 cap PO BID 03/28/18 03/28/18 History Hydrocodone/APAP 5/325 [[place] 1 tab PO Q6H PRN 03/28/18 03/28/18 History 5/325] Levothyroxine Tab [Synthroid] 150 mcg PO ACB 03/28/18 03/28/18 History Oxybutynin IR [Ditropan] 5 mg PO TID PRN 03/28/18 03/28/18 History Phenazopyridine HCl [Pyridium] 100 mg PO TID PRN 03/28/18 03/28/18 History Allergies Allergy/AdvReac Type Severity Reaction Status Date / Time aspirin Allergy Unknown Unverified 03/28/18 16:01 Results IRU - Labs Labs: I have reviewed outside records from his accounting intern as well as [facility] in [place]. Exam Vital Signs: Temperature 98.0 F 03/28/18 15:48 Pulse Rate 104 H 03/28/18 15:48 Respiratory Rate 16 03/28/18 15:48 Blood Pressure 142/76 H 03/28/18 15:48 Pulse Oximetry 97 03/28/18 15:48 Height/Weight/BMI: Height 1.83 m Weight 80.5 kg Body Mass Index 24.0 - Constitutional Present: no acute distress, well nourished, well developed, average body habitus , cooperative - Routine HEENT Exam Head: Present: normocephalic, atraumatic. Absent: cushingoid faces, abrasion, laceration, hematoma Eye: Present: EOMI, PERRL. Absent: conjunctival icterus, scleral injection, periorbital swelling, nystagmus ENT: Present: mucous membranes dry, oropharynx clear. Absent: dentition normal (patient is edentulous.) - Routine Neck Exam Present: supple, full ROM, trachea midline. Absent: lymphadenopathy, thyromegaly, tenderness, swelling - Routine Chest/Breast/Axilla Exam Chest wall: Absent: tenderness, mass Axillae: Absent: lymphadenopathy, mass - Routine Respiratory Exam Present: CTA bilaterally. Absent: accessory muscle use, decreased breath sounds , prolonged expiratory phase, rales, respiratory distress, rhonchi, stridor, wheezes, crackles, distant breath sounds - Routine Cardiovascular Exam Present: RRR, S1, S2, murmur (faint systolic murmur noted. No [place].), irregular rhythm (seems to have occasional irregular beats. This may be consistent with PACs or PVCs. Does not sound like atrial fibrillation at present.). Absent: gallop, S3, S4, click - Routine Abdominal Exam Present: soft, normoactive bowel sounds, non distended, non tender. Absent: rebound, guarding, firm, rigid, organomegaly, mass, hernia, wound - Routine Extremities Exam Present: edema (significant edema noted of right lower extremity particularly in the lower leg and ankle and foot. He states this has been swollen for a year or more.), non tender, pulses intact, normal capillary refill. Absent: cyanosis , clubbing - Routine Back/Spine/Pelvis Exam Back/Spine: Present: kyphosis. Absent: scoliosis - Routine Skin Exam Present: intact, dry, warm. Absent: cyanosis, erythema, pallor, mottling, petechiae, urticaria, lesions, jaundice Comments: Patient has a vertical red non-blanchable lesion on the left buttock over the issue tuberosity. There is a larger area of redness surrounding that which is blanchable. He has a couple of callus type lesions on the dorsum of both feet. - Routine Neurological Exam Present: alert, oriented X3, CN II-XII intact, moving all extremities, normal speech - Routine Psychiatric Exam Present: normal affect, normal thought process, cooperative. Absent: depressed , anxious Sepsis Assessment - Evaluation Severe Sepsis: none seen IRU A/P (1) Bladder cancer Qualifiers: Bladder location: overlapping sites Qualified Code(s): C67.8 - Malignant neoplasm of overlapping sites of bladder Current visit: Yes Status: Acute Patient had a recent (03/24/2018) resection of a large bladder tumor via the urethral approach. He is at risk for recurrent bleeding in view of the extensive nature of the tumor. Currently has a catheter in place and he will require bladder retraining and close monitoring of further bleeding. (2) Acute blood loss anemia Current visit: Yes Status: Acute Hemoglobin is 8.5 g percent. We do not have a record of his previous hemoglobin but he is likely to have the presence of acute blood loss anemia. This we monitored carefully to avoid hypotension and further bleeding. (3) Hypothyroidism (acquired) Current visit: Yes Status: Chronic (4) CHF (congestive heart failure) Qualifiers: Heart failure type: unspecified Heart failure chronicity: unspecified Qualified Code(s): I50.9 - Heart failure, unspecified Current visit: Yes Status: Chronic The patient carries a diagnosis of "congestive heart failure" from his accounting intern. However we do not have quantification of this and no echocardiogram is available. He'll be monitored carefully with regard to fluid balance. (5) Aortic stenosis Qualifiers: Cardiac valve disease etiology: etiology unspecified Qualified Code(s): I35.0 - Nonrheumatic aortic (valve) stenosis Current visit: Yes Status: Chronic Likewise he carries a diagnosis of aortic stenosis which has not been quantified to my knowledge. He is at risk for hypotension if his aortic stenosis is significant. DVT Prophylaxis: SCD's Resuscitation Status: Full Code - Course Hospital Course: Hunter Montero MD: - Interventions to Obtain Goals Goals Progress/Modifications: The patient is at risk for further bleeding as well as urinary retention when the catheter is pulled. He requires a multidisciplinary approach in view of his anemia, advanced age, history of aortic stenosis and history of congestive heart failure. He requires 24 rehabilitation nursing to monitor his urinary status, catheter management and to monitor for further bleeding via the system.
--- NOTE | 2018-03-28 17:02 | IRU 24Hr Post Admit Eval ---
24 Hr Post Admission Physical - Relevant Changes Relevant Changes: No Reviewed: I have reviewed the patient's information and concur with the finding and results of the pre-admission screen. Certification: I certify the patient for rehabilitation. - Patient Condition (1) Bladder cancer Status: Acute Qualifiers: Bladder location: overlapping sites Qualified Code(s): C67.8 - Malignant neoplasm of overlapping sites of bladder Code(s): C67.9 - Malignant neoplasm of bladder, unspecified Classification: IRF Tx That Should Address Diagnosis, Diagnosis Requiring Medical Follow Up Additional Information: The patient is status post resection of large bladder tumors and multiple areas of the bladder. He'll be monitored for further bleeding and to ensure that he is able to urinate once the catheter is pulled. He requires bladder retraining. (2) Acute blood loss anemia Status: Acute Code(s): D62 - Acute posthemorrhagic anemia Classification: Present on IRF Admission, IRF Tx That Should Address Diagnosis, Diagnosis Requiring Medical Follow Up (3) Hypothyroidism (acquired) Status: Chronic Code(s): E03.9 - Hypothyroidism, unspecified Classification: Diagnosis Requiring Medical Follow Up (4) CHF (congestive heart failure) Status: Chronic Qualifiers: Heart failure type: unspecified Heart failure chronicity: unspecified Qualified Code(s): I50.9 - Heart failure, unspecified Code(s): I50.9 - Heart failure, unspecified Classification: Diagnosis Requiring Medical Follow Up (5) Aortic stenosis Status: Chronic Qualifiers: Cardiac valve disease etiology: etiology unspecified Qualified Code(s): I35.0 - Nonrheumatic aortic (valve) stenosis Code(s): I35.0 - Nonrheumatic aortic (valve) stenosis Classification: Diagnosis Requiring Medical Follow Up - Prior Functional Status Lives With: Spouse Residence Type: Apartment/Private Home Assitive Devices: Front Wheeled Walker Prior Functional Status: Depend. at home or school, Shares IADL - Current Functional Status Current Level of Function: Currently the patient is modified independent for eating, requires minimum assistance for grooming, maximum assistance for bathing, supervision for upper body dressing but maximum assistance for lower body dressing. He requires maximum assistance for toileting, minimum assistance for bed/chair/wheelchair transfers, toilet transfers and walking with a rolling walker 30 feet. He does demonstrate decreased strength, safety awareness and decreased ability to perform self-cares. He demonstrates decreased ability to perform functional transfers as well as demonstrating generalized debilitation and decreased endurance. He has not safe for dismissal to his home. He was admitted to acute inpatient rehabilitation to improve his functional status as well as to monitor evidence of bleeding and anemia. Failed Alternative Therapy: Arrived from Acute Care Patient Requirements: The patient requires oversight by rehabilitation physician to manage their rehabilitation treatment plan and multidisciplinary approach to care that can only be provided in an IRF and requires a multidisciplinary approach to care, provided by professional PTs, OTs, STs, dieticians, RTs, rehabilitation nurses and is not available in lesser levels of care. Limitations Req: Mobility Impairment, ADL Impairment Physical Therapy Minutes: 90 Occupational Therapy Minutes: 90 Therapy: The patient is to receive therapy at least 5 days a week. - Complications/Comorbidities Impact on Functional Outcomes: The patient's advanced age and anemia will likely negatively impact his functional outcome. Barriers to Discharge: Weakness, Endurance - Plan to Avoid Complications Plan to Avoid Complications: The patient cannot receive this care in a lesser intensive setting such as Half-Way or Outpatient Therapy due to the patient requiring the following : 24 rehabilitation nursing is required to monitor his urinary output, evidence of bleeding, blood pressures and pulse. He has history of aortic stenosis and congestive heart failure and requires close 24 hour rehabilitation nursing monitoring of his cardiac status and blood pressure and pulse. He requires monitoring of his blood count in view of the anemia of 8.5 g percent. In view of these medical issues and in view of the multiple functional deficits, he requires a multidisciplinary approach with physical therapy, occupational therapy and medical supervision.
[2018-03-28] MEDS: DOCUSATE SODIUM 100 MG CAPSULE PO SCH (21:20)
[2018-03-29] MEDS: LEVOTHYROXINE 150 MCG TABLET PO SCH (05:54)
[2018-03-29] MEDS: DOCUSATE SODIUM 100 MG CAPSULE PO SCH (08:45)
--- NOTE | 2018-03-29 10:56 | IRU Progress Note ---
- Subjective/Serverity of Illness Date: 03/29/18 Mr. Tang is getting started with the rehabilitation milieu. He was able to eat breakfast and did fine in that regard. Has only occasional bladder spasm which is not terribly debilitating he states. Inspection of urine indicates he continues to be dark brown which is as anticipated. It is not bright red. I did advise him that Dr. Campoverde's recommendation was to remove the catheter either tomorrow or the next day. I have also discussed with the hospitalist service in this regard. Repeat hemoglobin is about the same at 8.6. It was 8.5 in [place]. We do have documentation that hemoglobin in the latter portion of February was 13, therefore this is an acute blood loss anemia most likely. From a congestive heart failure standpoint, he denies any shortness of breath. He denies any chest pain. We obtain additional records from Dr. Oswald's office in [place] who is his student services advisor. There is mention made of "chronic combined systolic and diastolic heart failure" on a note from 10/13/2016. No reference to echocardiogram is made. He also has a diagnosis of aortic stenosis again without quantification available in the current chart data. An ECG is available although I'm not certain of the date. It shows normal sinus mechanism with some evidence of LVH. Exam Vital Signs: Temperature 98.5 F 03/29/18 08:00 Pulse Rate 71 03/29/18 08:00 Respiratory Rate 16 03/29/18 08:00 Blood Pressure 125/70 03/29/18 08:00 Pulse Oximetry 95 03/29/18 08:00 Height/Weight/BMI: Height 1.83 m Weight 80.5 kg Body Mass Index 24.0 - Constitutional Present: no acute distress, well nourished, well developed, average body habitus - Routine HEENT Exam Eye: Present: EOMI ENT: Present: mucous membranes moist. Absent: dentition normal (edentulous) - Routine Respiratory Exam Present: CTA bilaterally. Absent: wheezes - Routine Cardiovascular Exam Present: RRR, S1, S2. Absent: murmur - Routine Abdominal Exam Present: soft, normoactive bowel sounds, non distended. Absent: tenderness - Routine Extremities Exam Present: edema (R>L), normal capillary refill - Routine Skin Exam Present: dry, warm - Routine Neurological Exam Present: alert, oriented X3, CN II-XII intact - Routine Psychiatric Exam Present: normal affect, cooperative Results IRU - Labs Labs: I have reviewed his laboratory findings. Also reviewed other chart data as well as outside records. IRU A/P (1) Bladder cancer Qualifiers: Bladder location: overlapping sites Qualified Code(s): C67.8 - Malignant neoplasm of overlapping sites of bladder Current visit: Yes Status: Acute Patient is status post resection of large bladder tumors extensively throughout the bladder. A catheter remains in place. He remains at risk for further bleeding as well as bladder spasms. These may be exacerbated by his activity with physical therapy and occupational therapy and will be monitored carefully. (2) Acute blood loss anemia Current visit: Yes Status: Acute Hemoglobin remains low at 8.6. Presumably this is related to acute blood loss anemia as redo of evidence for a hemoglobin of 13 in the latter portion of February 2018. He will be monitored for any evidence of continued blood loss. (3) Hypothyroidism (acquired) Current visit: Yes Status: Chronic (4) CHF (congestive heart failure) Qualifiers: Heart failure type: combined systolic and diastolic Heart failure chronicity: chronic Qualified Code(s): I50.42 - Chronic combined systolic ( congestive) and diastolic (congestive) heart failure Current visit: Yes Status: Chronic Based on new information from outside records from Dr. Oswald's office, he has combined systolic and diastolic heart failure. Patient denies any symptoms at present. However close attention will be paid to fluid balance to avoid excess fluid accumulation and to avoid hypotension. Currently denies dyspnea. (5) Aortic stenosis Qualifiers: Cardiac valve disease etiology: etiology unspecified Qualified Code(s): I35.0 - Nonrheumatic aortic (valve) stenosis Current visit: Yes Status: Chronic DVT Prophylaxis: SCD's Resuscitation Status: Full Code - Course Hospital Course: Hunter Montero MD: 03/29/18 10:58 Hemoglobin remains low at 8.6. Getting started with therapy assessments etc. Urine remains dark as anticipated. - Interventions to Obtain Goals Goals Progress/Modifications: Patient does continue to have evidence of acute blood loss anemia. We will monitor him carefully in this regard as he can develop further bleeding with increased intra-abdominal pressure with therapy with transfers and ambulation. In addition, he is at risk for hypotension in view of the anemia and his heart failure and aortic stenosis. At the present time he denies dyspnea or chest pain. Please note that the patient's individual plan of care was developed and documented today, requiring review of therapy notes, medical conditions and anticipated functional recovery. This required additional medical decision making with regard to interaction of the patient's medical issues with the anticipated functional recovery. Please see separate document
--- NOTE | 2018-03-29 11:03 | IRU Plan of Care ---
[facility] Overall Plan of Care - Date Date: 03/29/18 - Patient Impairments (1) Bladder cancer Qualifiers: Bladder location: overlapping sites Qualified Code(s): C67.8 - Malignant neoplasm of overlapping sites of bladder Code(s): C67.9 - Malignant neoplasm of bladder, unspecified Status: Acute Classification: IRF Tx That Should Address Diagnosis, Diagnosis Requiring Medical Follow Up (2) Acute blood loss anemia Code(s): D62 - Acute posthemorrhagic anemia Status: Acute Classification: Present on IRF Admission, IRF Tx That Should Address Diagnosis, Diagnosis Requiring Medical Follow Up (3) Hypothyroidism (acquired) Code(s): E03.9 - Hypothyroidism, unspecified Status: Chronic Classification: Diagnosis Requiring Medical Follow Up (4) CHF (congestive heart failure) Qualifiers: Heart failure type: combined systolic and diastolic Heart failure chronicity: chronic Qualified Code(s): I50.42 - Chronic combined systolic ( congestive) and diastolic (congestive) heart failure Code(s): I50.9 - Heart failure, unspecified Status: Chronic Classification: Diagnosis Requiring Medical Follow Up (5) Aortic stenosis Qualifiers: Cardiac valve disease etiology: etiology unspecified Qualified Code(s): I35.0 - Nonrheumatic aortic (valve) stenosis Code(s): I35.0 - Nonrheumatic aortic (valve) stenosis Status: Chronic Classification: Diagnosis Requiring Medical Follow Up - Relevant Changes Relevant Changes: No Reviewed: I have reviewed the patient's information and concur with the finding and results of the pre-admission screen. Certification: I certify the patient for rehabilitation. - Medical Prognosis Medical Prognosis: Good Vital Signs: Last Vital Signs Temp 98.5 F 03/29/18 08:00 Pulse 71 03/29/18 08:00 Resp 16 03/29/18 08:00 BP 125/70 03/29/18 08:00 Pulse Ox 95 03/29/18 08:00 - Anticipated Interventions Anticipated Interventions: The patient requires inpatient IRF care for PT, OT, and/or ST for residuals remaining from resection of extensive bladder tumor and acute blood loss anemia resulting in muscular weakness and strength deficits. An individualized overall plan of care has been developed after careful review of the patient's preadmission screening, post admission physician evaluation and assessments of all therapy disciplines and/or other pertinent clinicians involved in treating the patient. This indicates medical necessity and rehabilitation necessity have been established through a thorough review of all available medical information. - Current Functional Status Failed Alternative Therapy: Arrived from Acute Care Patient Requires: The patient requires oversight by rehabilitation physician to manage their rehabilitation treatment plan and multidisciplinary approach to care that can only be provided in an IRF and requires a multidisciplinary approach to care, provided by professional PTs, OTs, STs, rehabilitation nurses, and may require STs, dieticians, and RTS. This is not available in lesser levels of care. Physical Therapy Minutes: 90 Occupational Therapy Minutes: 90 Therapy: The patient is to receive therapy at least 5 days a week. - Anticipated LOS/Outcomes Anticipated Functional Outcome: I anticipate Mr. Hackett will be able to return to his home with modified independent level of functioning using a front-wheeled walker. He will able to transfer with supervision or standby assist or better. I anticipate his anemia will be controlled/stable and that his blood pressures and heart failure will be compensated. Anticipated Length of Stay (days): 7 Anticipated DC Destination: Home, Self Care, Home Health Service Home Safety Plan: The patient will be provided with the development of a Home Safety Plan for return to a home or home-like environment and and to ensure safety post discharge. - Plan to Avoid Complications Barriers to Attaining Goals: Weakness, Endurance Plan to Avoid Complications: The patient cannot receive this care in a lesser intensive setting such as [facility] or Outpatient Therapy due to the patient requiring the following : His illness drop from 13 down to 8.5-8.6. He has a history of congestive heart failure and aortic stenosis as well as a catheter and extensive resection of bladder tumor. He is at risk for further bleeding with resultant hypotension etc. He requires 24-hour nursing supervision to monitor his vital signs including pulse and blood pressure as well as evidence of further bleeding from the bladder. He requires a multi this very approach with PT and OT as well as medical supervision.
--- NOTE | 2018-03-29 14:39 | Progress Note ---
Progress Note: I discussed with Mr. Tang this afternoon as to whether he wanted CPR or other resuscitative efforts in the event of a cardiac or pulmonary arrest. He states that he does not wish this. He will therefore be made a "DO NOT RESUSCITATE"
--- NOTE | 2018-03-29 15:07 | Consult Note ---
Consult Information - Data of Consult Consult date: 03/29/18 Requesting Physician: Hunter Montero MD Primary Care Provider: Judson Iniguez APRN - Consult Narrative Reason for consult: Medical management, anemia History of present illness: Italo Tang is a pleasant 88-year-old male patient of Judson Iniguez APRN , with Dr. Kam in [place]. He was directly admitted to [facility] on 03/28/18 for continuation of intensive therapies to regain his strength and functional abilities. He reports that for the past year, he has had gross hematuria, off and on. Recent evaluation with CT of the abdomen revealed a hypervascular mass of about 2cm on the left lateral wall of the bladder which were later found to be large bladder tumors. He was admitted to [facility] and underwent TUR of the bladder tumor on 03/24/18. Operative findings indicated "tumor everywhere" in diverticula, all over" and "all visible tumor was resected." Post-operatively, he was placed on continuous bladder irrigation with a Rudolph catheter in place. Catheter was recommended to remain in place until 03/30/18 or 03/31/18. Due to his advanced age and recent resection of the bladder tumor, he has sustained multiple functional deficits. Given the extensive size of the bladder tumor, he is at risk for further complications including hemorrhage which can be exacerbated by rehabilitation movements thus requiring inpatient rehabilitation to ensure close monitoring for bleeding, anemia and other possible complications. The hospitalist service was consulted for medical management during his hospitalization. Past Medical History Medical History Updates: Hypothyroidism. CHF, unspecified - follows with Dr. Oswald in [place]. Aortic stenosis. Parkinson's disease. BPH. History of DVT. GERD. History of esophageal stricture. Surgical History: 1. Resection of goiter for nonmalignant etiology. 2. Transurethral resection of large bladder tumors - 03/24/18. 3. Cholecystectomy. 4. Tonsillectomy and adenoidectomy. 5. Cystoscopy - 02/2018. Family History: Patient's father of cancer in his 80s. Mother of heart disease in her 90s. Family history also positive for diabetes. Family History: As Above - Social History Smoking status: Never smoker Substance use type: does not use Alcohol intake frequency: does not drink Housing: house Household members: spouse Current occupational status: employed (Electrical Maintenance Worker) Does patient use chewing tobacco?: No Current residence: Apartment/Private Home Social history: PCP - Judson Iniguez APRN with Dr. Kam. Surg - Dr. Patrice Campoverde. Cardio - Dr. Oswald. Review of Systems All systems PM: 10-point ROS was reviewed, no additional remarkable complaints except - Constitutional Constitutional: Present: fatigue, weight loss (50 lbs over past few months.). Absent: anorexia, chills, fever(s) - EENMT Eyes: Absent: diplopia, loss of vision, photophobia Ears: Absent: ear pain Balance: Absent: falling to one side Nose: Absent: nosebleeds Mouth/Throat: Absent: sore throat, changes in swallowing, dry mouth - Cardiovascular Cardiovascular: Present: dyspnea on exertion (occasional). Absent: chest pain, palpitations, syncope, orthopnea Rhythm: Present: regular rhythm Vascular: Absent: pallor of an extermity, pedal edema, unilateral swelling - Respiratory Respiratory: Present: dyspnea on exertion. Absent: cough, dyspnea, hemoptysis, wheezing - Gastrointestinal Gastrointestinal: Absent: abdominal pain, change in bowel habits, hematochezia, melena, nausea, vomiting - Genitourinary Genitourinary: Present: hematuria. Absent: flank pain - Musculoskeletal Musculoskeletal: Present: muscle weakness. Absent: abnormal gait, deformity - Integumentary/Breasts Integumentary: Absent: rash - Neurological Neurological: Present: weakness. Absent: abnormal gait, confusion, dizziness, focal weakness - Psychiatric Psychiatric: Absent: abnormal sleep pattern, anxiety, depression - Endocrine Endocrine: Absent: cold intolerance, heat intolerance, palpitations - Hematologic/Lymphatic Hematologic/Lymphatic: Absent: easy bruising - Allergic/Immunologic Allergic/Immunologic: Absent: urticaria Medications Home Medications Medication Instructions Recorded Confirmed Type Docusate Sodium [Colace] 1 cap PO BID 03/28/18 03/28/18 History Hydrocodone/APAP 5/325 [[place] 1 tab PO Q6H PRN 03/28/18 03/28/18 History 5/325] Levothyroxine Tab [Synthroid] 150 mcg PO ACB 03/28/18 03/28/18 History Oxybutynin IR [Ditropan] 5 mg PO TID PRN 07/17/18 07/17/18 History Phenazopyridine HCl [Pyridium] 100 mg PO TID PRN 03/28/18 03/28/18 History Allergies Allergy/AdvReac Type Severity Reaction Status Date / Time aspirin Allergy Unknown Unverified 03/28/18 16:01 Exam Vital Signs: Temperature 98.5 F 03/29/18 08:00 Pulse Rate 71 03/29/18 08:00 Respiratory Rate 16 03/29/18 08:00 Blood Pressure 125/70 03/29/18 08:00 Pulse Oximetry 95 03/29/18 08:00 Height/Weight/BMI: Height 6 ft Weight 177 lb 7.554 oz Body Mass Index 24.0 Comments: Patient sitting in recliner. Reports he is doing well and denies any current complaints. - Constitutional Present: no acute distress, well nourished, well developed, thin, cooperative - Routine HEENT Exam Head: Present: normocephalic, atraumatic Eye: Present: PERRL. Absent: conjunctival icterus ENT: Present: mucous membranes moist Comments: Dentures. - Routine Neck Exam Present: supple, full ROM, trachea midline - Routine Chest/Breast/Axilla Exam Chest wall: Absent: pacemaker - Routine Respiratory Exam Present: decreased breath sounds, crackles (bibasilar). Absent: respiratory distress Comments: No cough or conversational dyspnea. - Routine Cardiovascular Exam Present: murmur, irregularly irregular - Routine Abdominal Exam Present: soft, normoactive bowel sounds, non tender - Routine Exam Comments: Rudolph catheter in place. Actively draining brown/red urine with blood clots noted in tubing. - Routine Extremities Exam Present: edema (3+ pitting bilateral lower extremity), pulses intact - Routine Back/Spine/Pelvis Exam Back/Spine: Present: full ROM. Absent: vertebral tenderness - Routine Skin Exam Present: intact, dry, warm Comments: Afebrile. - Routine Neurological Exam Present: alert, oriented X3, moving all extremities, hearing grossly intact, normal speech - Routine Psychiatric Exam Present: normal affect, cooperative Results - Labs CBC & Chem 7: 03/29/18 05:01 03/28/18 16:37 Assessment and Plan (1) Bladder cancer Current visit: Yes Status: Acute Assessment and Plan: Assessment: Generalized debility with unsteady gait. Post-op anemia following TUR bladder tumor 03/24/18. Hematuria. Protein calorie malnutrition. Bladder cancer with recent resection of tumors. Hypothyroidism. CHF, unspecified - follows with Dr. Oswald in [place]. Aortic stenosis. Parkinson's disease. BPH. History of DVT. GERD. History of esophageal stricture. Irregular heartbeat Plan - 03/29/18: Agree with admission to IRU for continued strengthening and improvement in functional abilities. Therapy and pain control orders per Dr. Montero. Hospitalist service consulted for medical management. Continue home medications. Hemoglobin 8.6 on admission. Post-op anemia with recent blood transfusion following TUR of bladder tumor. Monitor hemoglobin closely. Prealbumin low at 9.3 (moderate protein calorie malnutrition). Dietary consulted for recommendations. Rudolph catheter in place. Instructions to keep Rudolph in place until 03/30 or per surgeon recommendations. Monitor output closely. Occasional tachycardia with irregular rhythm on exam. No history of arrhythmia or a-fib. Will obtain EKG now. Will check TSH in AM and continue to monitor closely. Patient is asymptomatic. Will recheck labs in AM and monitor periodically throughout admission to monitor blood counts, electrolytes and renal function. Upon discharge, patient's care will be returned to Dr. Kam. DVT Prophylaxis: SCD's Resuscitation Status: Do Not Resuscitate - Time spent with patient Time with patient PN: 50 minutes - Physician Narrative Physician: Monalisa Meehan MD Narrative: Date: 03/29/18 Time: 2044 I have independently evaluated and examined this patient. I reviewed the chart, the patient's history, and the CILNICAL SCIENTIST/PA's documented findings as above. We discussed and formulated the assessment and plan as above with additions as below: Mr. Nelson was seen late this afternoon; he and spouse report urine color is improving and that hematuria is almost gone. They deny history of cardiac disease and don't believe they've seen a heart doctor in the past although records indicate prior evaluation by Dr. Oswald. No recent echocardiogram. Spouse describes lymphedema wraps being utilized at home and history of an esophageal stricture previously dilated several times. Lower extremity edema improved compared to baseline. NAD, alert, cooperative Respirations nonlabored, good airflow, breath sounds clear Irregular rhythm, S1-S2, I don't appreciate murmur +3 bilateral lower extremity edema EKG reviewed by myself-flutter waves present with irregular rhythm and low- grade tachycardia-rate 107 Labs reviewed CTA obtained-preliminary report negative for PE. Small RUL nodule-formal report pending. A. flutter-check echo in am, telemetry initiated. Monitor rate overnight-if persistent tachycardia will initiate therapy; anticoagulation will need to be discussed at a later time but with residual hematuria and negative CTA anticoagulation relatively contraindicated at present. Hospital Course Summary Disclaimer: The visit summary below is not to be considered part of the above Progress Note. Hospital Course: Plan - 03/29/18: Agree with admission to IRU for continued strengthening and improvement in functional abilities. Therapy and pain control orders per Dr. Montero. Hospitalist service consulted for medical management. Continue home medications. Hemoglobin 8.6 on admission. Post-op anemia with recent blood transfusion following TUR of bladder tumor. Monitor hemoglobin closely. Prealbumin low at 9.3 (moderate protein calorie malnutrition). Dietary consulted for recommendations. Rudolph catheter in place. Instructions to keep Rudolph in place until 03/30 or per surgeon recommendations. Monitor output closely. Occasional tachycardia with irregular rhythm on exam. No history of arrhythmia or a-fib. Will obtain EKG now. Will check TSH in AM and continue to monitor closely. Patient is asymptomatic. Will recheck labs in AM and monitor periodically throughout admission to monitor blood counts, electrolytes and renal function. Upon discharge, patient's care will be returned to Dr. Kam.
[2018-03-29] MEDS ORDERED: FUROSEMIDE 40 MG TABLET PO ONE (15:37)
[2018-03-29] MEDS ORDERED: SALINE FLUSH 10ml SYRINGE ONE (18:08)
[2018-03-29] MEDS ORDERED: IOHEXOL 350mg/ml 75ml INJECTION ONE (18:08)
[2018-03-30] MEDS: DOCUSATE SODIUM 100 MG CAPSULE PO SCH ×2 (00:50→07:59)
[2018-03-30] MEDS: LEVOTHYROXINE 150 MCG TABLET PO SCH (06:27)
--- NOTE | 2018-03-30 08:06 | CT Scan Report ---
Indication: post-op, tachycardia PROCEDURE: CT angio pulm emboli: Encounter: Initial Comparison: None Technique: Axial CT pulmonary angiographic phase images were performed through the chest after the administration of intravenous contrast. Coronal and Sagittal MIP reconstructed images were created and reviewed. Automated Exposure Control and Iterative Reconstruction dose reducing techniques were utilized. Contrast: Omnipaque 350 74 mL Findings: Pulmonary arteries: Exam is diagnostic to the subsegmental pulmonary arterial level. No filling defects identified to suggest a pulmonary embolus. Other findings: Bilateral lower lobe atelectasis. Elevated left hemidiaphragm. No pneumothorax or focal pneumonia. The central airways are patent. No axillary adenopathy. Calcified mediastinal granulomas. Heart is normal in size. No pericardial effusion. Upper abdomen shows no acute findings. 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 5 mm superior segment right lower lobe pulmonary nodule, optional chest CT follow-up in 12 months in high-risk patients. Impression: No pulmonary embolus or acute disease process seen. There is a preliminary report by [employer]. .
--- NOTE | 2018-03-30 11:21 | IRU Progress Note ---
- Subjective/Serverity of Illness Date: 03/30/18 Mr. Tang was reassessed in his room on inpatient rehabilitation. Because of tachycardia, TSH was checked and it is suppressed although T4 is normal. He is on supplemental thyroid. Electrocardiogram was done demonstrating some flutter waves (with likely artifact in V1). At times he appears to be in normal sinus mechanism on prior outside ECG. However the electrocardiogram here clearly indicates that he is in an irregular rhythm with likely atrial flutter. Echocardiogram was then done. I reviewed this and this shows left ventricular hypertrophy, normal contractility with ejection fraction of 64%, tricuspid regurgitation with evidence of right ventricular systolic pressure at 37 mmHg which is minimally elevated. He has mitral regurgitation as well. He has evidence of diastolic dysfunction with reversal of E/A ratio. Minimal calcific aortic stenosis is noted with peak instantaneous velocity of 1.7 m/s across the aortic valve with a maximum pressure gradient of only 12 mmHg. The patient is asymptomatic. He denies any shortness of breath. He denies any chest pain. He does have chronic edema of the right lower extremity. Hemoglobin remains low at 8.6 but stable. His urine is less dark today. He reports that he is constipated and would like to have a bowel movement. He is straining at stool according to the therapists. He has minimal assistance to contact-guard assistance for transfers. He is cooperative with therapy. Exam Vital Signs: Temperature 98.3 F 03/30/18 07:21 Pulse Rate 80 03/30/18 07:21 Respiratory Rate 18 03/30/18 07:21 Blood Pressure 127/70 03/30/18 07:21 Pulse Oximetry 96 03/30/18 07:21 Height/Weight/BMI: Height 1.83 m Weight 80.5 kg Body Mass Index 24.0 - Constitutional Present: no acute distress, well nourished, well developed, cooperative - Routine HEENT Exam Eye: Present: EOMI ENT: Present: mucous membranes moist, oropharynx clear - Routine Respiratory Exam Present: CTA bilaterally. Absent: wheezes - Routine Cardiovascular Exam Present: RRR (ECG indicates atrial flutter. He sounds fairly regular at present but with occasional ectopic beat. He likely is in atrial flutter), S1, S2, murmur - Routine Abdominal Exam Present: soft, normoactive bowel sounds, non distended. Absent: tenderness - Routine Extremities Exam Present: edema (Right lower extremity (he states this is chronic)), normal capillary refill - Routine Skin Exam Present: dry, warm - Routine Neurological Exam Present: alert, oriented X3 (uncertain if he is totally oriented.), CN II-XII intact - Routine Psychiatric Exam Present: normal affect Results IRU - Labs Labs: I have personally reviewed other providers notes, laboratory data, electrocardiogram and echocardiogram. IRU A/P (1) Bladder cancer Qualifiers: Bladder location: overlapping sites Qualified Code(s): C67.8 - Malignant neoplasm of overlapping sites of bladder Current visit: Yes Status: Acute Catheter remains in place. Urine is less dark today. Hemoglobin has been stable. (2) Acute blood loss anemia Current visit: Yes Status: Acute (3) Hypothyroidism (acquired) Current visit: Yes Status: Chronic TSH was suppressed and his levothyroxine has been reduced by the hospitalist service. (4) CHF (congestive heart failure) Qualifiers: Heart failure type: diastolic Heart failure chronicity: chronic Qualified Code(s): I50.32 - Chronic diastolic (congestive) heart failure Current visit: Yes Status: Chronic Based on the current echocardiogram he predominantly has diastolic heart failure. He is currently asymptomatic in my opinion. His lungs remain clear. (5) Aortic stenosis Qualifiers: Cardiac valve disease etiology: etiology unspecified Qualified Code(s): I35.0 - Nonrheumatic aortic (valve) stenosis Current visit: Yes Status: Chronic He has minimal calcific aortic stenosis with peak instantaneous velocity 1.7 m/ s. His maximum pressure gradient is only 12 mmHg. DVT Prophylaxis: SCD's Resuscitation Status: Do Not Resuscitate - Course Hospital Course: Hunter Montero MD: 03/29/18 10:58 Hemoglobin remains low at 8.6. Getting started with therapy assessments etc. Urine remains dark as anticipated. 03/30/18 11:25 He is fatigued. Cooperative with therapy. Minimum assistance to contact-guard assistance for transfers noted. Echocardiogram shows good contractility but with diastolic dysfunction. Electrocardiogram shows atrial flutter. Urine is less dark. - Interventions to Obtain Goals PT Treatment Plan: Balance/Proprioception, Functional Activities, Gait Training , Patient/Family Education, Therapeutic Exercise OT Treatment Plan: ADL (Basic Care), Balance Training, IADL, Pt./Family Education, Ther. Exercise for ADL Goals Progress/Modifications: Patient is somewhat medically complex. He has had recent extensive bladder tumor removed but has evidence of atrial flutter on electrocardiogram. Perhaps this is exacerbated by his hyperthyroidism. Levothyroxine has been reduced by the hospitalist service and we will monitor this for the time being. His hemoglobin is low but stable. He is cooperative with therapy. His echocardiogram does demonstrate good contractility but with evidence of diastolic dysfunction (reversal of E/A ratio). He is asymptomatic. He does have some easy fatigability however. Recommendations were for his catheter to be removed today or tomorrow. Have discussed with the hospitalist service and I will defer to them for this order.
--- NOTE | 2018-03-30 13:36 | Echocardiogram ---
DATE OF PROCEDURE 03/30/2018 REASON FOR PROCEDURE Atrial flutter PROCEDURE DETAIL Please refer to the exact dimensions on the echocardiogram images. Patient is tachycardic during the procedure, likely in atrial flutter. Procedure is a technically difficult study with limited visualization of the valves and wall motion. LV size appears to be normal. No evidence for thrombus noted, however, it is not a definitive study. LV thickness appears to be mildly increased. LV function appears to be hyperdynamic with ejection fraction of 65-70%. LV wall motion could not be assessed as the patient is tachycardic. LV diastolic function appears to be showing grade I diastolic dysfunction. Right ventricle grossly normal in size, grossly normal in function. Left atrium appears to be normal in size. No evidence for clot. Right atrium normal in size. Atrial septum shows no Doppler evidence for a PFO or ASD. Mitral valve poorly visualized, however, there is only trivial to mild regurgitation noted. No mitral stenosis. Tricuspid valve poorly visualized. Moderate tricuspid regurgitation noted. Aortic valve is trileaflet. No evidence for regurgitation noted. No aortic stenosis. Pulmonary valve poorly visualized. Mild pulmonary regurgitation noted. Ascending aorta appears to be normal in size. Pulmonary arteries show some mild pulmonary hypertension with RVSP close to 42. Inferior vena cava appears to be normal in size. Pericardium. No pericardial effusion. LV dimensions. End diastolic volume 82.6 mL, End systolic volume 29.6 mL. IVSd 1.28 cm. LVID diastolic 4.29 cm. LVPW diastolic 1.16 cm. LVPW systolic 1.91 cm. LVID systolic 2.8 cm. LV volume 61 mL. Aorta diameter 3.6 cm. Left atrium dimension 3.8 cm. Aortic valve area 2.25 cm2. Aortic Vmax 1.7 cm/second. Mean gradient 6 mmHg. Maximum peak gradient 11.8 mmHg. LVOT dimension 1.7 cm. LVOT mean gradient 4 mmHg. RVSP 37 mmHg. PV Vmax 7 mmHg. CONCLUSIONS 1. Hyperdynamic ejection fraction. 2. Moderate tricuspid regurgitation. 3. Mild pulmonary hypertension. MTDD
[2018-03-30] MEDS: POLYETHYL GLYCOL 3350 17gm PACKET PO SCH (16:33)
[2018-03-30] MEDS ORDERED: MAGNESIUM SULFATE 1gm PREMIX 1 GM/100 ML BAG IV ONE (18:00)
--- NOTE | 2018-03-30 20:08 | Progress Note ---
- Date 03/30/18 Subjective: Patient is seen this afternoon while sitting in his chair. He currently has no complaints. Specifically he is not having any chest tightness, shortness of breath. He is quite swollen in his lower extremities and he may be normal for him. He has been found to have paroxysmal atrial flutter, and this afternoon he had run of Trist tach. During all of these times he has been completely asymptomatic. Objective Vital signs: Temperature 98.2 F 03/30/18 15:48 Pulse Rate 129 H 03/30/18 17:19 Respiratory Rate 18 03/30/18 15:48 Blood Pressure 102/55 03/30/18 15:48 Pulse Oximetry 96 03/30/18 15:48 Height/Weight/BMI: Height 1.83 m Weight 80.5 kg Body Mass Index 24.0 - Constitutional Present: no acute distress, well nourished, well developed - Routine HEENT Exam Head: Present: normocephalic, atraumatic - Routine Respiratory Exam Present: decreased breath sounds, CTA bilaterally. Absent: wheezes - Routine Cardiovascular Exam Present: no murmur Comments: Mostly regular with an occasional irregularity - Routine Abdominal Exam Present: soft, non distended, non tender - Routine Extremities Exam Present: edema (2+ right, 1+ left), normal capillary refill - Routine Skin Exam Present: dry, warm - Routine Neurological Exam Present: alert - Routine Lymphatic Exam Lymphatic: Absent: adenopathy - Routine Psychiatric Exam Present: normal affect, cooperative Results - Labs CBC & Chem 7: 03/30/18 04:38 03/30/18 18:58 Assessment and Plan (1) Bladder cancer Current visit: Yes Status: Acute Assessment and Plan: Assessment: Generalized debility with unsteady gait. Post-op anemia following TUR bladder tumor 03/24/18. Hematuria. Protein calorie malnutrition. Bladder cancer with recent resection of tumors. Hypothyroidism. CHF, unspecified - follows with Dr. Oswald in [place]. Aortic stenosis. Parkinson's disease. BPH. History of DVT. GERD. History of esophageal stricture. Paroxysmal atrial flutter with baseline sinus dysrhythmia Plan - Hemoglobin 8.6 on admission, stable today at 8.6. Post-op anemia with recent blood transfusion following TUR of bladder tumor. Monitor hemoglobin closely. Rudolph catheter in place. Instructions to keep Rudolph in place until 03/30 or per surgeon recommendations. Monitor output closely. Start bladder training today. Plan to remove catheter tomorrow if all goes well. Paroxysmal atrial flutter and one episode of V. tach with no history of arrhythmia or a-fib. Patient is asymptomatic. Hold off on anticoagulation as patient has postop anemia and is still having hematuria from recent surgery. Potassium 3.1 this a.m., patient given 40 mEq. Level was repeated after patient had run of V. tach this afternoon, at that time potassium was 3.6. He was given another 40 mEq of potassium. Follow weights and I's and O's. He may benefit from a diuretic given his significant swelling, but given he is asymptomatic this time, will await cardiology recommendation. Magnesium 1.8. Following run of V. tach he was given 1 g of magnesium IV. TSH is slightly suppressed and free T4 is normal. Levothyroxine was decreased from 150 g to 125 g. Will need follow-up thyroid studies on outpatient basis in approximately 4-6 weeks. Dietitian has been consult regarding protein calorie malnutrition. Consult [place] cardiology for evaluation of paroxysmal atrial flutter and V. tach. Patient's shipper/receiver is Dr. Gonzalez. Resuscitation Status: Do Not Resuscitate - Physician Narrative Physician: Monalisa Meehan MD Narrative: Date: 03/30/18 Time: 2330 Telemetry strips reviewed-wide complex tachycardia consistent with DVT; potassium/magnesium replaced. Rhythm reported to be asymptomatic by nursing. Echo read earlier today with ejection fraction reported to be 65-70%, LV thickness slightly increased; grade 1 diastolic dysfunction. Moderate TR, mild pulmonary hypertension with PAP 42. Repeat 12-lead in a.m.; cardiology consultation planned. Hospital Course Summary Disclaimer: The visit summary below is not to be considered part of the above Progress Note. Hospital Course: Plan - 03/29/18: Agree with admission to IRU for continued strengthening and improvement in functional abilities. Therapy and pain control orders per Dr. Montero. Hospitalist service consulted for medical management. Continue home medications. Hemoglobin 8.6 on admission. Post-op anemia with recent blood transfusion following TUR of bladder tumor. Monitor hemoglobin closely. Prealbumin low at 9.3 (moderate protein calorie malnutrition). Dietary consulted for recommendations. Rudolph catheter in place. Instructions to keep Rudolph in place until 03/30 or per surgeon recommendations. Monitor output closely. Occasional tachycardia with irregular rhythm on exam. No history of arrhythmia or a-fib. Will obtain EKG now. Will check TSH in AM and continue to monitor closely. Patient is asymptomatic. Will recheck labs in AM and monitor periodically throughout admission to monitor blood counts, electrolytes and renal function. Upon discharge, patient's care will be returned to Dr. Kam. 03/30/18 Hemoglobin 8.6 on admission, stable today at 8.6. Post-op anemia with recent blood transfusion following TUR of bladder tumor. Monitor hemoglobin closely. Rudolph catheter in place. Instructions to keep Rudolph in place until 03/30 or per surgeon recommendations. Monitor output closely. Start bladder training today. Plan to remove catheter tomorrow if all goes well. Paroxysmal atrial flutter and one episode of V. tach with no history of arrhythmia or a-fib. Patient is asymptomatic. Hold off on anticoagulation as patient has postop anemia and is still having hematuria from recent surgery. Potassium 3.1 this a.m., patient given 40 mEq. Level was repeated after patient had run of V. tach this afternoon, at that time potassium was 3.6. He was given another 40 mEq of potassium. Follow weights and I's and O's. He may benefit from a diuretic given his significant swelling, but given he is asymptomatic this time, will await cardiology recommendation. Magnesium 1.8. Following run of V. tach he was given 1 g of magnesium IV. TSH is slightly suppressed and free T4 is normal. Levothyroxine was decreased from 150 g to 125 g. Will need follow-up thyroid studies on outpatient basis in approximately 4-6 weeks. Dietitian has been consult regarding protein calorie malnutrition. Consult [place] cardiology for evaluation of paroxysmal atrial flutter and V. tach. Patient's shipper/receiver is Dr. Gonzalez.
[2018-03-31] MEDS: DOCUSATE SODIUM 100 MG CAPSULE PO SCH ×3 (02:22→20:01)
[2018-03-31] MEDS: LEVOTHYROXINE 125 MCG TABLET PO SCH ×2 (05:21→06:20)
[2018-03-31] MEDS: HYDROCODONE/APAP 5mg/325mg TABLET PO PRN (05:22)
[2018-03-31] MEDS: POLYETHYL GLYCOL 3350 17gm PACKET PO SCH (08:43)
[2018-03-31] MEDS: MAGNESIUM OXIDE 400 MG TABLET PO SCH ×2 (08:48→20:01)
[2018-03-31] MEDS: AMIODARONE 200 MG TABLET PO SCH (18:28)
[2018-04-01] MEDS: LEVOTHYROXINE 125 MCG TABLET PO SCH (06:12)
[2018-04-01] MEDS: POLYETHYL GLYCOL 3350 17gm PACKET PO SCH (08:20)
[2018-04-01] MEDS: AMIODARONE 200 MG TABLET PO SCH (08:21)
[2018-04-01] MEDS: MAGNESIUM OXIDE 400 MG TABLET PO SCH ×2 (08:21→20:45)
[2018-04-01] MEDS: DOCUSATE SODIUM 100 MG CAPSULE PO SCH ×2 (08:21→20:45)
--- NOTE | 2018-04-01 15:26 | Cardiology Consult Note ---
History of Present Illness Consult date: 03/31/18 Consult reason: atrial fibrillation (patient has paroxismal atrial fibrillation with rapid ventricualr response) History of present illness: patient is known 88 year old male with known history of aortic valve disease and diastolic heart failure who during his hospital stay has been getting multiple episodes of atrial fibrillation and short rans of rapid ventricular response. patient has been completely asymptomatic. He used to see Dr Oswald but has not been compliant. currently patient is in rehab Review of Systems All systems PM: 10-point ROS was reviewed, no additional remarkable complaints except PFSH Patient Stated Medical History Constipation Yes Hx Incontinence No Medical History Updates: Hypothyroidism. CHF, unspecified - follows with Dr. Oswald in [place]. Aortic stenosis. Parkinson's disease. BPH. History of DVT. GERD. History of esophageal stricture. Surgical History: 1. Resection of goiter for nonmalignant etiology. 2. Transurethral resection of large bladder tumors - 03/24/18. 3. Cholecystectomy. 4. Tonsillectomy and adenoidectomy. 5. Cystoscopy - 02/2018. - Social History Smoking status: Never smoker Substance use type: does not use Alcohol intake: never Alcohol intake frequency: does not drink Housing: house Household members: spouse Current occupational status: employed (Explosive Expert) Does patient use chewing tobacco?: No Current residence: Apartment/Private Home Medications Home Medications Medication Instructions Recorded Confirmed Type Docusate Sodium [Colace] 1 cap PO BID 03/28/18 03/28/18 History Hydrocodone/APAP 5/325 [Midnight 1 tab PO Q6H PRN 03/28/18 03/28/18 History 5/325] Levothyroxine Tab [Synthroid] 150 mcg PO ACB 03/28/18 03/28/18 History Oxybutynin IR [Ditropan] 5 mg PO TID PRN 03/28/18 03/28/18 History Phenazopyridine HCl [Pyridium] 100 mg PO TID PRN 03/28/18 03/28/18 History Allergies Allergy/AdvReac Type Severity Reaction Status Date / Time aspirin Allergy Unknown Verified 03/31/18 05:20 Exam Vital signs: Temperature 98.3 F 04/01/18 07:56 Pulse Rate 63 04/01/18 08:00 Respiratory Rate 16 04/01/18 07:56 Blood Pressure 118/69 04/01/18 07:56 Pulse Oximetry 95 04/01/18 07:56 - Constitutional no acute distress - Routine HEENT Exam Head: Present: normocephalic Eye: Present: EOMI, PERRL - Routine Respiratory Exam Present: rales - Routine Cardiovascular Exam Present: RRR, S1, S2, murmur - Routine Abdominal Exam Present: soft, non distended, non tender Results 03/31/18 04:58 03/31/18 04:58 Intake and Output 04/01/18 04/01/18 04/01/18 06:59 14:59 22:59 Intake Total 600 / 600 Output Total 475 / 475 Balance -475 / -475 600 / 600 Intake: Oral 600 / 600 Output: Urine Amount (Catheter) 475 / 475 Other: Urine Appearance Clear Urine Color Dark Tana Urine Odor Normal Stool Color Brown Stool Consistency Soft Size of Bowel Movement Small # Voids 1 # Bowel Movements 1 Assessment and Plan - Assessment and Plan (1) Atrial fibrillation Problem details: patient has frequent episodes of atrial fibrilltion with rapid ventricualr response. Echo showed normal EF I started him on Amiodarone and Metoprolol. Thank you for the consult, please don't hesitate to call me with any questions [phone] Current visit: Yes Status: Acute (2) CHF (congestive heart failure) Problem details: started diuresis Current visit: Yes Status: Chronic (3) Aortic stenosis Current visit: Yes Status: Chronic Hospital Course Summary Disclaimer: The visit summary below is not to be considered part of the above Progress Note. Hospital Course: Plan - 03/29/18: Agree with admission to IRU for continued strengthening and improvement in functional abilities. Therapy and pain control orders per Dr. Montero. Hospitalist service consulted for medical management. Continue home medications. Hemoglobin 8.6 on admission. Post-op anemia with recent blood transfusion following TUR of bladder tumor. Monitor hemoglobin closely. Prealbumin low at 9.3 (moderate protein calorie malnutrition). Dietary consulted for recommendations. Rudolph catheter in place. Instructions to keep Rudolph in place until 03/30 or per surgeon recommendations. Monitor output closely. Occasional tachycardia with irregular rhythm on exam. No history of arrhythmia or a-fib. Will obtain EKG now. Will check TSH in AM and continue to monitor closely. Patient is asymptomatic. Will recheck labs in AM and monitor periodically throughout admission to monitor blood counts, electrolytes and renal function. Upon discharge, patient's care will be returned to Dr. Kam. 03/30/18 Hemoglobin 8.6 on admission, stable today at 8.6. Post-op anemia with recent blood transfusion following TUR of bladder tumor. Monitor hemoglobin closely. Rudolph catheter in place. Instructions to keep Rudolph in place until 03/30 or per surgeon recommendations. Monitor output closely. Start bladder training today. Plan to remove catheter tomorrow if all goes well. Paroxysmal atrial flutter and one episode of V. tach with no history of arrhythmia or a-fib. Patient is asymptomatic. Hold off on anticoagulation as patient has postop anemia and is still having hematuria from recent surgery. Potassium 3.1 this a.m., patient given 40 mEq. Level was repeated after patient had run of V. tach this afternoon, at that time potassium was 3.6. He was given another 40 mEq of potassium. Follow weights and I's and O's. He may benefit from a diuretic given his significant swelling, but given he is asymptomatic this time, will await cardiology recommendation. Magnesium 1.8. Following run of V. tach he was given 1 g of magnesium IV. TSH is slightly suppressed and free T4 is normal. Levothyroxine was decreased from 150 g to 125 g. Will need follow-up thyroid studies on outpatient basis in approximately 4-6 weeks. Dietitian has been consult regarding protein calorie malnutrition. Consult [place] cardiology for evaluation of paroxysmal atrial flutter and V. tach. Patient's inventory technician is Dr. Gonzalez.
[2018-04-01] MEDS: SALINE FLUSH 10ml SYRINGE IV PRN (20:47)
[2018-04-02] MEDS: MENTHOL COUGH DROPS (RICOLA) MM PRN (04:45)
[2018-04-02] MEDS: LEVOTHYROXINE 125 MCG TABLET PO SCH ×2 (04:46→07:47)
[2018-04-02] MEDS: DOCUSATE SODIUM 100 MG CAPSULE PO SCH ×2 (08:25→20:16)
[2018-04-02] MEDS: MAGNESIUM OXIDE 400 MG TABLET PO SCH ×2 (08:25→20:15)
[2018-04-02] MEDS: AMIODARONE 200 MG TABLET PO SCH (08:26)
[2018-04-02] MEDS: POLYETHYL GLYCOL 3350 17gm PACKET PO SCH (08:26)
[2018-04-02] MEDS: PHENAZOPYRIDINE 95 MG TABLET PO PRN ×2 (17:28→22:58)
[2018-04-03] MEDS: HYDROCODONE/APAP 5mg/325mg TABLET PO PRN ×2 (03:08→21:25)
[2018-04-03] MEDS: LEVOTHYROXINE 125 MCG TABLET PO SCH (06:53)
[2018-04-03] MEDS: MAGNESIUM OXIDE 400 MG TABLET PO SCH ×2 (08:38→21:25)
[2018-04-03] MEDS: DOCUSATE SODIUM 100 MG CAPSULE PO SCH ×2 (08:38→21:25)
[2018-04-03] MEDS: AMIODARONE 200 MG TABLET PO SCH (08:38)
[2018-04-03] MEDS: POLYETHYL GLYCOL 3350 17gm PACKET PO SCH (08:39)
--- NOTE | 2018-04-03 12:41 | IRU Progress Note ---
- Subjective/Serverity of Illness Date: 04/03/18 Patient doing fairly well today. Eating his food. Denies pain. Had fisher put back in. Has been using walker and feels like he is improving. Exam Vital Signs: Temperature 98.5 F 04/03/18 07:20 Pulse Rate 66 04/03/18 08:00 Respiratory Rate 16 04/03/18 07:20 Blood Pressure 121/67 04/03/18 07:20 Pulse Oximetry 95 04/03/18 07:20 Height/Weight/BMI: Height 1.83 m Weight 82 kg Body Mass Index 24.0 - Constitutional Present: no acute distress - Routine Respiratory Exam Present: CTA bilaterally - Routine Cardiovascular Exam Present: irregular rhythm - Routine Abdominal Exam Present: normoactive bowel sounds - Routine Extremities Exam Present: edema Comments: bilat edema in legs, 2+ IRU A/P (1) Bladder cancer Qualifiers: Bladder location: overlapping sites Qualified Code(s): C67.8 - Malignant neoplasm of overlapping sites of bladder Current visit: Yes Status: Acute Had fisher put back in. (2) Acute blood loss anemia Current visit: Yes Status: Acute (3) Aortic stenosis Qualifiers: Cardiac valve disease etiology: etiology unspecified Qualified Code(s): I35.0 - Nonrheumatic aortic (valve) stenosis Current visit: Yes Status: Chronic (4) Atrial fibrillation Problem details: patient has frequent episodes of atrial fibrilltion with rapid ventricualr response. Echo showed normal EF I started him on Amiodarone and Metoprolol. Thank you for the consult, please don't hesitate to call me with any questions [phone] Current visit: Yes Status: Acute (5) CHF (congestive heart failure) Qualifiers: Heart failure type: diastolic Heart failure chronicity: chronic Qualified Code(s): I50.32 - Chronic diastolic (congestive) heart failure Problem details: started diuresis Current visit: Yes Status: Chronic (6) Hypothyroidism (acquired) Current visit: Yes Status: Chronic (7) Generalized weakness Current visit: Yes Status: Acute Will continue to work with PT and OT. He is using walker and did not use that much before admission. DVT Prophylaxis: SCD's Resuscitation Status: Do Not Resuscitate - Course Hospital Course: Hunter Montero MD: 03/29/18 10:58 Hemoglobin remains low at 8.6. Getting started with therapy assessments etc. Urine remains dark as anticipated. 03/30/18 11:25 He is fatigued. Cooperative with therapy. Minimum assistance to contact-guard assistance for transfers noted. Echocardiogram shows good contractility but with diastolic dysfunction. Electrocardiogram shows atrial flutter. Urine is less dark. - Interventions to Obtain Goals PT Treatment Plan: Balance/Proprioception, Functional Activities, Gait Training , Patient/Family Education, Therapeutic Exercise OT Treatment Plan: ADL (Basic Care), Balance Training, IADL, Pt./Family Education, Ther. Exercise for ADL
--- NOTE | 2018-04-03 13:38 | IRU Team Meeting ---
IRU Team Meeting - Nursing Bladder Assistive Devices Utilized:: Absorbent Pad Bladder Management Level of Assist: Modified Independent Bladder Frequency of Accidents: No accidents Bowel Assistive Devices Utilized:: Medication Bowel Management Level of Assist: Modified Independent Bowel Frequency of Accidents: No accidents Vital Signs: Vital Signs - 24 hr 04/02/18 15:32 04/02/18 16:00 04/02/18 17:30 Temperature 97.6 F Pulse Rate 50 L 56 L 62 Respiratory Rate 16 Blood Pressure 104/60 Pulse Oximetry 98 04/02/18 20:01 04/02/18 23:44 04/03/18 04:02 Temperature 98.1 F Pulse Rate 61 50 L Respiratory Rate 20 18 Blood Pressure 101/62 Pulse Oximetry 98 04/03/18 07:20 04/03/18 08:00 Temperature 98.5 F Pulse Rate 60 66 Respiratory Rate 16 Blood Pressure 121/67 Pulse Oximetry 95 Current Medications: Hydrocodone Bitart/Acetaminophen (Celestine 5/325) 1 tab PO Q6H PRN PRN Reason: Pain Last Admin: 04/03/18 03:08 Dose: 1 tab Amiodarone HCl (Pacerone) 200 mg PO DAILY [facility] Last Admin: 04/03/18 08:38 Dose: 200 mg Docusate Sodium (Colace) 100 mg PO BID [facility] Last Admin: 04/03/18 08:38 Dose: Not Given Levothyroxine Sodium (Synthroid) 125 mcg PO ACB [facility] Last Admin: 04/03/18 06:53 Dose: 125 mcg Magnesium Oxide (Magox) 400 mg PO BID [facility] Last Admin: 04/03/18 08:38 Dose: 400 mg Menthol (Ricola Sf) 1 lozenge MM PRN PRN PRN Reason: Cough Last Admin: 04/02/18 04:45 Dose: 1 lozenge Metoprolol Tartrate (Lopressor) 25 mg PO BIDWM [facility] Last Admin: 04/03/18 08:38 Dose: 25 mg Oxybutynin Chloride (Ditropan) 5 mg PO TID PRN PRN Reason: Bladder spasms Phenazopyridine HCl (Pyridium Eq) 95 mg PO TID PRN PRN Reason: dysuria Last Admin: 04/02/18 22:58 Dose: 95 mg Polyethylene Glycol (Miralax) 17 gm PO DAILY [facility] Last Admin: 04/03/18 08:39 Dose: Not Given Sodium Chloride (Iv Flush) 10 ml IV PRN PRN PRN Reason: Flushing Last Admin: 04/01/18 20:47 Dose: 10 ml - Physical Therapy Bed, Chair, Wheelchair Transfer Assist: Minimal Assistance, 1 Person Assist Ambulation Ability: Stand By Assist/Supervision Ambulation Distance: 350 Stair Climbing Ability: Stand By Assist/Supervision Number of Steps Climbed: 12 Car Transfer Ability: Stand By Assist/Supervision - Occupational Therapy Eating Ability: Independent Grooming Ability: Modified Independent Bathing Ability: Minimal Assistance Upper Body Dressing Ability: Stand By Assist/Supervision Lower Body Dressing Ability: Moderate Assistance Tub Transfer Assist: Contact Guard Assistance Toileting Assist: Stand By Assist/Supervision Toilet Transfer Assist: Contact Guard Assistance - Goals Physical Therapy Goals: 04/03/18. 1) Improve safety awareness with mobility. 2 ) Modified independent for transfers and gait Occupational Therapy Goals: OT goals 04/03/18: 1.) Lower body dressing with modified independence. 2.) Toileting with modified independence. 3.) Perform simple meal prep task of making toast with modified independence. - Barriers to Discharge Barriers to Attaining Goals: Weakness, Balance, Endurance - Care Plan Anticipated Length of Stay (days): 14 Anticipated DC Destination: Home, Self Care, Home Health Service I have led this team conference and agree with the plan. Interventions/Goals: Patient will continue with OT and PT to get stronger and will have come in to give us more of an idea of how he was functioning before this admission.
--- NOTE | 2018-04-03 14:44 | Progress Note ---
- Date 04/03/18 Subjective: Patient is seen sitting in his chair this afternoon. He reports he is feeling fine. He denies any chest pain, palpitations, shortness of breath, nausea, vomiting, fever or chills. His catheter had to be put back in due to retention. Objective Vital signs: Temperature 98.5 F 04/03/18 07:20 Pulse Rate 66 04/03/18 08:00 Respiratory Rate 16 04/03/18 07:20 Blood Pressure 121/67 04/03/18 07:20 Pulse Oximetry 95 04/03/18 07:20 Height/Weight/BMI: Height 1.83 m Weight 82 kg Body Mass Index 24.0 - Constitutional Present: no acute distress, well nourished, well developed - Routine HEENT Exam Head: Present: normocephalic, atraumatic - Routine Respiratory Exam Present: CTA bilaterally. Absent: wheezes - Routine Cardiovascular Exam Present: RRR, murmur - Routine Abdominal Exam Present: soft, non distended, non tender - Routine Extremities Exam Present: edema (bilateral lower extremities-compression stockings in place), normal capillary refill - Routine Skin Exam Present: dry, warm - Routine Neurological Exam Present: alert, normal speech - Routine Lymphatic Exam Lymphatic: Absent: adenopathy - Routine Psychiatric Exam Present: normal affect, cooperative Results - Labs CBC & Chem 7: 03/31/18 04:58 03/31/18 04:58 Assessment and Plan (1) Bladder cancer Current visit: Yes Status: Acute Assessment and Plan: Assessment: Generalized debility with unsteady gait. Post-op anemia following TUR bladder tumor 03/24/18. Hematuria. Protein calorie malnutrition. Bladder cancer with recent resection of tumors. Hypothyroidism. CHF, unspecified Aortic stenosis. Parkinson's disease. BPH. History of DVT. GERD. History of esophageal stricture. Paroxysmal atrial flutter with baseline sinus dysrhythmia Plan - Rudolph catheter removed 1300 on 04/01/18. Patient had minimal output remainder of the day and had 400 mL output following a straight catheter that evening. Throughout the day yesterday he was only voiding 50 mL at a time, thus, Rudolph was reinserted last night. Hemoglobin 9.4 -stable since his admission here. Dr. Carrillo saw patient on 03/31/18 and started him on amiodarone and metoprolol for his arrhythmias. AST and ALT were normal on admission. TSH is being followed as he is on replacement. He has been bradycardic last night and today, but asymptomatic. We'll continue to monitor. Reviewed telemetry. Potassium and magnesium levels are normal at this time. - Physician Narrative Narrative: Date: 04/03/18 Time: 1425 Hospital Course Summary Disclaimer: The visit summary below is not to be considered part of the above Progress Note. Hospital Course: Plan - 03/29/18: Agree with admission to IRU for continued strengthening and improvement in functional abilities. Therapy and pain control orders per Dr. Montero. Hospitalist service consulted for medical management. Continue home medications. Hemoglobin 8.6 on admission. Post-op anemia with recent blood transfusion following TUR of bladder tumor. Monitor hemoglobin closely. Prealbumin low at 9.3 (moderate protein calorie malnutrition). Dietary consulted for recommendations. Rudolph catheter in place. Instructions to keep Rudolph in place until 03/30 or per surgeon recommendations. Monitor output closely. Occasional tachycardia with irregular rhythm on exam. No history of arrhythmia or a-fib. Will obtain EKG now. Will check TSH in AM and continue to monitor closely. Patient is asymptomatic. Will recheck labs in AM and monitor periodically throughout admission to monitor blood counts, electrolytes and renal function. Upon discharge, patient's care will be returned to Dr. Kam. 03/30/18 Hemoglobin 8.6 on admission, stable today at 8.6. Post-op anemia with recent blood transfusion following TUR of bladder tumor. Monitor hemoglobin closely. Rudolph catheter in place. Instructions to keep Rudolph in place until 03/30 or per surgeon recommendations. Monitor output closely. Start bladder training today. Plan to remove catheter tomorrow if all goes well. Paroxysmal atrial flutter and one episode of V. tach with no history of arrhythmia or a-fib. Patient is asymptomatic. Hold off on anticoagulation as patient has postop anemia and is still having hematuria from recent surgery. Potassium 3.1 this a.m., patient given 40 mEq. Level was repeated after patient had run of V. tach this afternoon, at that time potassium was 3.6. He was given another 40 mEq of potassium. Follow weights and I's and O's. He may benefit from a diuretic given his significant swelling, but given he is asymptomatic this time, will await cardiology recommendation. Magnesium 1.8. Following run of V. tach he was given 1 g of magnesium IV. TSH is slightly suppressed and free T4 is normal. Levothyroxine was decreased from 150 g to 125 g. Will need follow-up thyroid studies on outpatient basis in approximately 4-6 weeks. Dietitian has been consult regarding protein calorie malnutrition. Consult [facility] cardiology for evaluation of paroxysmal atrial flutter and V. tach. Patient's shank cementer hand is Dr. Gonzalez. 04/03/18 Rudolph catheter removed 1300 on 04/01/18. Patient had minimal output remainder of the day and had 400 mL output following a straight catheter that evening. Throughout the day yesterday he was only voiding 50 mL at a time, thus, Rudolph was reinserted last night. Hemoglobin 9.4 -stable since his admission here. Dr. Carrillo saw patient on 03/31/18 and started him on amiodarone and metoprolol for his arrhythmias. AST and ALT were normal on admission. TSH is being followed as he is on replacement. He has been bradycardic last night and today, but asymptomatic. We'll continue to monitor. Potassium and magnesium levels are normal at this time.
[2018-04-03] MEDS: SALINE FLUSH 10ml SYRINGE IV PRN (21:26)
[2018-04-04] MEDS: LEVOTHYROXINE 125 MCG TABLET PO SCH (06:22)
[2018-04-04] MEDS: MENTHOL COUGH DROPS (RICOLA) MM PRN (06:23)
--- NOTE | 2018-04-04 07:37 | IRU Progress Note ---
- Subjective/Serverity of Illness Date: 04/04/18 Patient denies pain this morning. Has been doing pretty well with therapy. Exam Vital Signs: Temperature 98.4 F 04/03/18 21:35 Pulse Rate 51 L 04/04/18 00:00 Respiratory Rate 16 04/03/18 21:35 Blood Pressure 112/63 04/03/18 21:35 Pulse Oximetry 96 04/03/18 21:35 Height/Weight/BMI: Height 1.83 m Weight 82.5 kg Body Mass Index 24.0 - Constitutional Present: no acute distress - Routine Respiratory Exam Present: CTA bilaterally - Routine Cardiovascular Exam Present: RRR, bradycardia - Routine Abdominal Exam Present: soft, normoactive bowel sounds. Absent: tenderness - Routine Extremities Exam Present: edema Comments: 1+ edema in [facility] IRU A/P (1) Bladder cancer Qualifiers: Bladder location: overlapping sites Qualified Code(s): C67.8 - Malignant neoplasm of overlapping sites of bladder Current visit: Yes Status: Acute Continues to recover after surgery for bladder tumor. (2) Acute blood loss anemia Current visit: Yes Status: Acute Has been stable. Will order CBC for tomorrow AM. (3) Aortic stenosis Qualifiers: Cardiac valve disease etiology: etiology unspecified Qualified Code(s): I35.0 - Nonrheumatic aortic (valve) stenosis Current visit: Yes Status: Chronic (4) Atrial fibrillation Problem details: patient has frequent episodes of atrial fibrilltion with rapid ventricualr response. Echo showed normal EF I started him on Amiodarone and Metoprolol. Thank you for the consult, please don't hesitate to call me with any questions [phone] Current visit: Yes Status: Acute (5) CHF (congestive heart failure) Qualifiers: Heart failure type: diastolic Heart failure chronicity: chronic Qualified Code(s): I50.32 - Chronic diastolic (congestive) heart failure Problem details: started diuresis Current visit: Yes Status: Chronic (6) Hypothyroidism (acquired) Current visit: Yes Status: Chronic (7) Generalized weakness Current visit: Yes Status: Acute Continuing with PT and OT. is coming in today to assess if he is getting closer to his baseline to go home. (8) Bradycardia Current visit: Yes Status: Acute Metoprolol was stopped yesterday. Will continue to monitor heart rate. DVT Prophylaxis: SCD's Resuscitation Status: Do Not Resuscitate - Course Hospital Course: Hunter Montero MD: 03/29/18 10:58 Hemoglobin remains low at 8.6. Getting started with therapy assessments etc. Urine remains dark as anticipated. 03/30/18 11:25 He is fatigued. Cooperative with therapy. Minimum assistance to contact-guard assistance for transfers noted. Echocardiogram shows good contractility but with diastolic dysfunction. Electrocardiogram shows atrial flutter. Urine is less dark. - Interventions to Obtain Goals PT Treatment Plan: Balance/Proprioception, Functional Activities, Gait Training , Patient/Family Education, Therapeutic Exercise OT Treatment Plan: ADL (Basic Care), Balance Training, IADL, Pt./Family Education, Ther. Exercise for ADL
[2018-04-04] MEDS: AMIODARONE 200 MG TABLET PO SCH (08:22)
[2018-04-04] MEDS: MAGNESIUM OXIDE 400 MG TABLET PO SCH ×2 (08:22→20:34)
[2018-04-04] MEDS: POLYETHYL GLYCOL 3350 17gm PACKET PO SCH (08:22)
[2018-04-04] MEDS: DOCUSATE SODIUM 100 MG CAPSULE PO SCH ×2 (08:22→20:24)
[2018-04-04] MEDS: SALINE FLUSH 10ml SYRINGE IV PRN (20:34)
[2018-04-05] MEDS: MENTHOL COUGH DROPS (RICOLA) MM PRN (00:31)
[2018-04-05] MEDS: LEVOTHYROXINE 125 MCG TABLET PO SCH (06:05)
[2018-04-05] MEDS: MAGNESIUM OXIDE 400 MG TABLET PO SCH ×2 (08:35→20:55)
[2018-04-05] MEDS: AMIODARONE 200 MG TABLET PO SCH (08:35)
[2018-04-05] MEDS: DOCUSATE SODIUM 100 MG CAPSULE PO SCH ×2 (08:36→20:55)
[2018-04-05] MEDS: POLYETHYL GLYCOL 3350 17gm PACKET PO SCH (08:36)
[2018-04-06] MEDS: LEVOTHYROXINE 125 MCG TABLET PO SCH (06:34)
[2018-04-06] MEDS: HYDROCODONE/APAP 5mg/325mg TABLET PO PRN (06:35)
[2018-04-06] MEDS: AMIODARONE 200 MG TABLET PO SCH (08:55)
[2018-04-06] MEDS: DOCUSATE SODIUM 100 MG CAPSULE PO SCH ×2 (08:55→20:32)
[2018-04-06] MEDS: MAGNESIUM OXIDE 400 MG TABLET PO SCH ×2 (08:55→20:32)
[2018-04-06] MEDS: POLYETHYL GLYCOL 3350 17gm PACKET PO SCH (08:57)
--- NOTE | 2018-04-06 11:25 | IRU Progress Note ---
- Subjective/Serverity of Illness Date: 04/06/18 Mr. Tang was interviewed and examined in his room on inpatient rehabilitation. He seems to be cooperative with therapy. Catheter was attempted to be removed last week but had to be replaced. I discussed with the hospitalist service today and they will plan to remove this shortly. The patient denies any pain. He seems to be cooperative with therapy. He denies any loss of appetite, nausea or vomiting. He denies any chest pain or shortness of breath. He is known to have some diastolic dysfunction as well as episodes of atrial fibrillation with rapid ventricular response. He has been started on amiodarone and metoprolol in this regard. At the present time his heart rhythm appears to be regular upon auscultation. For occupational therapy he is requiring standby assistance for upper and lower body dressings and he is able to transfer with modified independent level. For physical therapy he is walking of about 259 feet with a front-wheeled walker with standby assist. Exam Vital Signs: Temperature 97.3 F 04/06/18 08:00 Pulse Rate 70 04/06/18 08:00 Respiratory Rate 16 04/06/18 08:00 Blood Pressure 138/65 04/06/18 08:00 Pulse Oximetry 95 04/06/18 08:00 Height/Weight/BMI: Height 1.83 m Weight 81.4 kg Body Mass Index 24.0 - Constitutional Present: well nourished, well developed, cooperative - Routine HEENT Exam Eye: Present: EOMI ENT: Present: mucous membranes moist - Routine Respiratory Exam Present: CTA bilaterally. Absent: wheezes - Routine Cardiovascular Exam Present: RRR, S1, S2. Absent: murmur - Routine Abdominal Exam Present: soft, normoactive bowel sounds, non distended. Absent: tenderness - Routine Extremities Exam Present: no edema, normal capillary refill - Routine Back/Spine/Pelvis Exam Back/Spine: Present: full ROM - Routine Skin Exam Present: dry, warm - Routine Neurological Exam Present: alert, CN II-XII intact - Routine Psychiatric Exam Present: normal affect, cooperative Results IRU - Labs Labs: I reviewed labs and other provider's notes. IRU A/P (1) Bladder cancer Qualifiers: Bladder location: overlapping sites Qualified Code(s): C67.8 - Malignant neoplasm of overlapping sites of bladder Current visit: Yes Status: Acute Urine looks relatively clear in the catheter. Catheter had to be replaced and will be subsequently removed. (2) Acute blood loss anemia Current visit: Yes Status: Acute Hemoglobin remained stable at the present time. (3) Hypothyroidism (acquired) Current visit: Yes Status: Chronic (4) CHF (congestive heart failure) Qualifiers: Heart failure type: diastolic Heart failure chronicity: chronic Qualified Code(s): I50.32 - Chronic diastolic (congestive) heart failure Problem details: started diuresis Current visit: Yes Status: Chronic A symptomatically with regard to diastolic dysfunction. He actually has a hyperdynamic left ventricle with regard to systolic function. (5) Aortic stenosis Qualifiers: Cardiac valve disease etiology: etiology unspecified Qualified Code(s): I35.0 - Nonrheumatic aortic (valve) stenosis Current visit: Yes Status: Chronic DVT Prophylaxis: SCD's Resuscitation Status: Do Not Resuscitate - Course Hospital Course: Hunter Montero MD: 03/29/18 10:58 Hemoglobin remains low at 8.6. Getting started with therapy assessments etc. Urine remains dark as anticipated. 03/30/18 11:25 He is fatigued. Cooperative with therapy. Minimum assistance to contact-guard assistance for transfers noted. Echocardiogram shows good contractility but with diastolic dysfunction. Electrocardiogram shows atrial flutter. Urine is less dark. 04/06/18 11:26 Catheter will be attempted to be removed. He is improving with therapy. - Interventions to Obtain Goals PT Treatment Plan: Balance/Proprioception, Functional Activities, Gait Training , Patient/Family Education, Therapeutic Exercise OT Treatment Plan: ADL (Basic Care), Balance Training, IADL, Pt./Family Education, Ther. Exercise for ADL
--- NOTE | 2018-04-06 14:53 | Progress Note ---
- Date 04/06/18 Subjective: Italo was seen today in follow up. He is seen while sitting in his recliner with nursing present. He has a bright affect and reports he is doing well and is eager for discharge home tomorrow. He denies any complaints or concerns. No chest pain, shortness of breath, abdominal pain, nausea, vomiting or diarrhea. He is preparing to have his fisher catheter removed. It was originally removed a week ago but due to urinary retention, it had to be replaced. He was seen by cardiology who recommended initiation of amiodarone 200mg daily as well as metoprolol. Review of his medications revealed that the metoprolol was not initiated. Treatment plan was discussed with Dr. Carrillo ( cardiology) today and he indicated that the patient SHOULD be on metoprolol 25mg BID and confirmed that no loading dose was given for the amiodarone and to continue with the amiodarone 200mg daily. Medication changes were made immediately following the discussion. He remains in sinus rhythm on telemetry. Objective Vital signs: Temperature 97.3 F 04/06/18 08:00 Pulse Rate 74 04/06/18 08:00 Respiratory Rate 16 04/06/18 08:00 Blood Pressure 138/65 04/06/18 08:00 Pulse Oximetry 95 04/06/18 08:00 Rhythm: Normal Sinus Rhythm Height/Weight/BMI: Height 6 ft Weight 179 lb 3.773 oz Body Mass Index 24.0 Comments: Sitting in his recliner with nursing present. - Constitutional Present: no acute distress, well nourished, well developed, cooperative - Routine HEENT Exam Head: Present: normocephalic, atraumatic Eye: Present: PERRL. Absent: conjunctival icterus ENT: Present: mucous membranes moist, oropharynx clear - Routine Respiratory Exam Present: CTA bilaterally. Absent: respiratory distress, wheezes - Routine Cardiovascular Exam Present: RRR, S1, S2 Comments: Telemetry on. - Routine Abdominal Exam Present: soft, normoactive bowel sounds, non distended - Routine Extremities Exam Present: edema (2-3+ (improved)), non tender, full ROM, pulses intact Comments: JIM hose in place. - Routine Back/Spine/Pelvis Exam Back/Spine: Present: full ROM. Absent: vertebral tenderness - Routine Musculoskeletal Exam Musculoskeletal: Present: no clubbing or cyanosis, moving extremities well - Routine Skin Exam Present: intact, dry, warm Comments: afebrile. - Routine Neurological Exam Present: alert, oriented X3, moving all extremities, hearing grossly intact, normal speech - Routine Psychiatric Exam Present: normal affect, cooperative Results - Labs CBC & Chem 7: 04/05/18 04:44 03/31/18 04:58 Assessment and Plan (1) Bladder cancer Current visit: Yes Status: Acute Assessment and Plan: Assessment: Generalized debility with unsteady gait. Post-op anemia following TUR bladder tumor 03/24/18. Hematuria. Protein calorie malnutrition. Bladder cancer with recent resection of tumors. Hypothyroidism. CHF, unspecified Aortic stenosis. Parkinson's disease. BPH. History of DVT. GERD. History of esophageal stricture. Paroxysmal atrial flutter with baseline sinus dysrhythmia Urinary retention Plan - 04/06/18 Overall, Italo is doing well and medically stable. Anticipate discharge home on 04/07/18. Plan to remove Fisher catheter today. Fisher catheter removed 1300 on 04/01/18. Patient had minimal output remainder of the day and had 400 mL output following a straight catheter that evening and required replacement of the Fisher due to retention. Monitor closely for signs of retention. Patient seen by Dr. Carrillo (cardiology). Amiodarone 200mg daily was initiated . Documentation indicated intent to start metoprolol though review of medications indicates it was not started. Discussed with Dr. Carrillo today and he recommended continuation of amiodarone 200mg daily and to start metoprolol 25mg BID. Continue to monitor closely on telemetry. 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 TSH low on admission at 0.08 with free T4 stable at 2.16. Home Synthroid decreased to 125 mcg daily. Patient to follow up as outpatient with PCP and recheck labs in 4-6 weeks. Patient to follow up with PCP and Dr. Gonzalez following discharge from IRU. DVT Prophylaxis: JIM Welch Resuscitation Status: Do Not Resuscitate - Time spent with patient Time with patient PN: 35 minutes - Physician Narrative Physician: Monalisa Meehan MD, Lonnie Sykes MD Narrative: Date: 04/06/18 Time: 1720 I have independently evaluated and examined this patient. I reviewed the chart, the patient's history, and the WELL DRILLER HELPER/PA's documented findings as above. We discussed and formulated the assessment and plan as above with additions as below: Mr. Nelson was seen while resting in his room earlier today. He complained of sore throat but denied dyspnea or palpitations. He reported that he has not yet been able to void since catheter was removed. Regular rhythm; respirations nonlabored, breath sounds clear; oropharynx clear Patient was started on metoprolol 25 mg by mouth twice a day 03/31 with first dose given in the evening; metoprolol was discontinued after the morning dose when the patient's blood pressure dropped to 88/51. At that time medications nursing contacted Dr. Tovar who indicated the beta tammi could be discontinued. Heart rate has been stable with rates of 51-70 since that time and there is been no further hypotension even in the immediate time after the isolated reading. Monitor blood pressure overnight; may need to decrease metoprolol to 12.5 mg twice a day. Cough drops added for sore throat. Telemetry strips reviewed-sinus rhythm except 1 with significant artifact but likely sinus. Hospital Course Summary Disclaimer: The visit summary below is not to be considered part of the above Progress Note. Hospital Course: Plan - 03/29/18: Agree with admission to IRU for continued strengthening and improvement in functional abilities. Therapy and pain control orders per Dr. Montero. Hospitalist service consulted for medical management. Continue home medications. Hemoglobin 8.6 on admission. Post-op anemia with recent blood transfusion following TUR of bladder tumor. Monitor hemoglobin closely. Prealbumin low at 9.3 (moderate protein calorie malnutrition). Dietary consulted for recommendations. Fisher catheter in place. Instructions to keep Fisher in place until 03/30 or per surgeon recommendations. Monitor output closely. Occasional tachycardia with irregular rhythm on exam. No history of arrhythmia or a-fib. Will obtain EKG now. Will check TSH in AM and continue to monitor closely. Patient is asymptomatic. Will recheck labs in AM and monitor periodically throughout admission to monitor blood counts, electrolytes and renal function. Upon discharge, patient's care will be returned to Dr. Kam. 03/30/18 Hemoglobin 8.6 on admission, stable today at 8.6. Post-op anemia with recent blood transfusion following TUR of bladder tumor. Monitor hemoglobin closely. Fisher catheter in place. Instructions to keep Fisher in place until 03/30 or per surgeon recommendations. Monitor output closely. Start bladder training today. Plan to remove catheter tomorrow if all goes well. Paroxysmal atrial flutter and one episode of V. tach with no history of arrhythmia or a-fib. Patient is asymptomatic. Hold off on anticoagulation as patient has postop anemia and is still having hematuria from recent surgery. Potassium 3.1 this a.m., patient given 40 mEq. Level was repeated after patient had run of V. tach this afternoon, at that time potassium was 3.6. He was given another 40 mEq of potassium. Follow weights and I's and O's. He may benefit from a diuretic given his significant swelling, but given he is asymptomatic this time, will await cardiology recommendation. Magnesium 1.8. Following run of V. tach he was given 1 g of magnesium IV. TSH is slightly suppressed and free T4 is normal. Levothyroxine was decreased from 150 g to 125 g. Will need follow-up thyroid studies on outpatient basis in approximately 4-6 weeks. Dietitian has been consult regarding protein calorie malnutrition. Consult [facility] cardiology for evaluation of paroxysmal atrial flutter and V. tach. Patient's model technician is Dr. Gonzalez. 04/03/18 Fisher catheter removed 1300 on 04/01/18. Patient had minimal output remainder of the day and had 400 mL output following a straight catheter that evening. Throughout the day yesterday he was only voiding 50 mL at a time, thus, Fisher was reinserted last night. Hemoglobin 9.4 -stable since his admission here. Dr. Carrillo saw patient on 03/31/18 and started him on amiodarone and metoprolol for his arrhythmias. AST and ALT were normal on admission. TSH is being followed as he is on replacement. He has been bradycardic last night and today, but asymptomatic. We'll continue to monitor. Potassium and magnesium levels are normal at this time. Plan - 04/06/18 Overall, Italo is doing well and medically stable. Anticipate discharge home on 04/07/18. Plan to remove Fisher catheter today. Fisher catheter removed 1300 on 04/01/18. Patient had minimal output remainder of the day and had 400 mL output following a straight catheter that evening and required replacement of the Fisher due to retention. Monitor closely for signs of retention. Patient seen by Dr. Carrillo (cardiology). Amiodarone 200mg daily was initiated . Discussed with Dr. Carrillo today and he recommended continuation of amiodarone 200mg daily and to start metoprolol 25mg BID. Monitor closely as metoprolol was discontinued 04/03 after prior initiation led to transient hypotension. Continue to monitor closely on telemetry. 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 TSH low on admission at 0.08 with free T4 stable at 2.16. Home Synthroid decreased to 125 mcg daily. Patient to follow up as outpatient with PCP and recheck labs in 4-6 weeks. Patient to follow up with PCP and Dr. Gonzalez following discharge from IRU.
[2018-04-06] MEDS ORDERED: MENTHOL COUGH DROPS (RICOLA) MM PRN (17:14)
[2018-04-06] MEDS: MENTHOL COUGH DROPS (RICOLA) MM PRN (20:36)
[2018-04-07] MEDS: LEVOTHYROXINE 125 MCG TABLET PO SCH (06:04)
[2018-04-07] MEDS: HYDROCODONE/APAP 5mg/325mg TABLET PO PRN (06:04)
[2018-04-07 07:10] VITALS: PULSE 53
[2018-04-07] MEDS: AMIODARONE 200 MG TABLET PO SCH (09:31)
[2018-04-07] MEDS: MAGNESIUM OXIDE 400 MG TABLET PO SCH (09:31)
[2018-04-07] MEDS: DOCUSATE SODIUM 100 MG CAPSULE PO SCH (09:32)
[2018-04-07] MEDS: POLYETHYL GLYCOL 3350 17gm PACKET PO SCH (09:32)
--- NOTE | 2018-04-07 10:19 | IRU Progress Note ---
- Subjective/Serverity of Illness Date: 04/07/18 Mr. Tang is feeling comfortable going home. He complains of small quantity of bowel movements although he is having movements. During the night he was able to void 40-50 cc at a time but has significantly increased residuals. This morning he was able to void 275 mL and had only 125 mL residual. He states that this is not unusual for him to go frequently and not very much at night but then do better during the daytime apparently. He denies any abdominal pain. No gross hematuria has been reported. From a therapy standpoint he is doing well and felt to be stable for transition to his home environment. Exam Vital Signs: Temperature 98.3 F 04/07/18 07:09 Pulse Rate 53 L 04/07/18 07:09 Respiratory Rate 14 04/07/18 07:09 Blood Pressure 89/49 04/07/18 07:09 Pulse Oximetry 97 04/07/18 07:09 Height/Weight/BMI: Height 1.83 m Weight 81.3 kg Body Mass Index 24.0 - Constitutional Present: no acute distress, well nourished, well developed, cooperative - Routine HEENT Exam Eye: Present: EOMI ENT: Present: mucous membranes moist - Routine Respiratory Exam Present: CTA bilaterally. Absent: wheezes - Routine Cardiovascular Exam Present: RRR, S1, S2. Absent: murmur Comments: Review of telemetry indicates normally in normal sinus mechanism with occasional PVCs. - Routine Abdominal Exam Present: soft, normoactive bowel sounds, non distended. Absent: tenderness - Routine Extremities Exam Present: normal capillary refill - Routine Skin Exam Present: dry, warm - Routine Neurological Exam Present: alert, oriented X3, CN II-XII intact - Routine Psychiatric Exam Present: normal affect Results IRU - Labs Labs: Have reviewed other providers notes and chart data. 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 Campoverde's office in [place] to arrange for follow-up. He has been able to urinate without the catheter in. No gross hematuria identified. (2) Acute blood loss anemia Current visit: Yes Status: Acute Hemoglobin has remained stable. (3) Hypothyroidism (acquired) Current visit: Yes Status: Chronic (4) CHF (congestive heart failure) Qualifiers: Heart failure type: diastolic Heart failure chronicity: chronic Qualified Code(s): I50.32 - Chronic diastolic (congestive) heart failure Problem details: started diuresis Current visit: Yes Status: Chronic (5) Aortic stenosis Qualifiers: Cardiac valve disease etiology: etiology unspecified Qualified Code(s): I35.0 - Nonrheumatic aortic (valve) stenosis Current visit: Yes Status: Chronic DVT Prophylaxis: JIM Welch Resuscitation Status: Do Not Resuscitate - Course Hospital Course: Hunter Montero MD: 03/29/18 10:58 Hemoglobin remains low at 8.6. Getting started with therapy assessments etc. Urine remains dark as anticipated. 03/30/18 11:25 He is fatigued. Cooperative with therapy. Minimum assistance to contact-guard assistance for transfers noted. Echocardiogram shows good contractility but with diastolic dysfunction. Electrocardiogram shows atrial flutter. Urine is less dark. 04/06/18 11:26 Catheter will be attempted to be removed. He is improving with therapy. 04/07/18 10:18 Able to void 275 mL spontaneously with minimal residual. Stable for transfer to home. - Interventions to Obtain Goals PT Treatment Plan: Balance/Proprioception, Functional Activities, Gait Training , Patient/Family Education, Therapeutic Exercise OT Treatment Plan: ADL (Basic Care), Balance Training, IADL, Pt./Family Education, Ther. Exercise for ADL
--- NOTE | 2018-04-07 10:29 | Letter to Referring Physician ---
Dear Judson, This is a brief note to bring you up-to-date on the status of Italo Tang and his stay on the acute inpatient rehabilitation unit at [facility]. As you are likely aware, this patient was admitted to [facility] by Dr. Patrice Campoverde for transurethral resection of a very large bladder tumor. The patient was stabilized while on the acute level and admitted to inpatient rehabilitation unit at [facility] on March 28, 2018. While on inpatient rehabilitation, this patient was seen by occupational therapy and physical therapy and improved overall in their functional ability. He was noted to have episodes of atrial fibrillation with rapid ventricular response. For this reason he was seen in consultation by Dr. Carrillo who placed him on amiodarone 200 mg daily and metoprolol. Unfortunately his blood pressure did drop with the metoprolol and for this reason he remains on amiodarone only. For the most part he remains in sinus mechanism on telemetry with occasional PVCs. He was not started on any further anticoagulants in view of his recent large bladder tumor resection. His atrial fibrillation was asymptomatic. In addition, please note that we did reduce his levothyroxine to 125 g daily. He will need another TSH in about 4-6 weeks. (TSH was over suppressed here initially). Also, his final hemoglobin was 8.9 g percent and this probably should be followed up as an outpatient. With regard to his urination, the catheter was removed as recommended by Dr. Campoverde. We did have to place it back initially but he has been able to void since its second removal over the past 48 hours or so. This morning he was able to void 275 mL and had 125 mL residual. He does struggle with some constipation and we are urging him to utilize MiraLAX on a regular basis. Please see a copy of the history and physical examination as well as discharge summary faxed separately for further details. He is being dismissed today to his home with home health assistance. Thank you for allowing us to be involved in this nice patient's care. Please contact me directly should you have any questions regarding their stay on the inpatient rehabilitation unit. Sincerely, Hunter Montero M.D.
--- NOTE | 2018-04-07 10:33 | Discharge Summary ---
Discharge Information Date of admission: 03/28/18 15:20 Anticipated date of discharge: 04/07/18 Attending Physician: Hunter Montero MD Primary care physician: Judson Iniguez APRN Consults: 03/28/18 16:14 Physician Consult [CONS] Routine Consulting Provider: Sherron Horn Reason For Exam: medical management Ordering Provider has Notified Knife Edger: Yes 03/28/18 16:47 Dietary Consult [CONS] Routine Comment: Reason For Exam: reported 50 lb weight loss in 2 months 03/30/18 20:04 Physician Consult [CONS] Routine Consulting Provider: Ibrahima Carnes Reason For Exam: paroxysmal afib/21 run Vtach Ordering Provider has Notified Knife Edger: No Comment: please consult on-call md for [facility] in am. - Discharge Diagnosis (1) Bladder cancer Status: Acute (2) Acute blood loss anemia Status: Acute (3) Hypothyroidism (acquired) Status: Chronic (4) CHF (congestive heart failure) Status: Chronic (5) Aortic stenosis Status: Chronic 1. Status post transurethral resection of large bladder tumor 2. Generalized debilitation 3. Acute blood loss anemia 4. Acquired hypothyroidism 5. Paroxysmal atrial fibrillation, asymptomatic 6. Chronic diastolic heart failure - Laboratory Labs: 04/05/18 04:44 03/31/18 04:58 History of Present Illness HPI: Mr. Tang was noted to have an extensive bladder tumor. For this he was admitted to [facility] in [place] and on March 24, 2018 underwent transurethral resection of extensive bladder tumor by Dr. Patrice Campoverde. He did develop acute blood loss anemia with hemoglobin down to 8.5. He also has a history of congestive heart failure by report. He had multiple functional deficits as a result of his extensive bladder tumor and resection and was felt to be a good candidate for inpatient rehabilitation where he was admitted on 03/28/2018. Hospital Course This is a general summary of the patient's hospital course. For more details refer to the complete medical record. The patient was admitted to acute inpatient rehabilitation for a multidisciplinary approach to his recovery. He was followed by the hospitalist service as well as by Dr. Montero. He had episodes of paroxysmal atrial fibrillation and for this reason a chest CT angiogram was obtained on 2017 which was negative for pulmonary embolus. Echocardiogram was obtained on March 30, 2018 demonstrating diastolic dysfunction but normal contractility otherwise. He was seen by Dr. Carrillo and started on amiodarone and metoprolol. However, he developed hypotension and thus the metoprolol was discontinued. He will stay on the amiodarone and his rhythm appears to be stable in sinus mechanism with occasional PVC's. He was not started on an anti-coagulant at this time due to his recent extensive bladder tumor surgery and risk of bleeding. His initial hemoglobin was 8.6. He reached a high of 9.4 on March 31 and is of April 05 was 8.9. He did not require blood transfusions during this hospitalization. His white count remained normal. TSH was suppressed at 0.08 and free T4 2 0.16. For this reason his levothyroxine was reduced from 0.150 mg to 0.125 mg daily. This will need to be followed up as an outpatient with another TSH in 4-6 weeks. Patient's Rudolph catheter was initially discontinued on or about April 01, 2018. However it was again placed due to inability to empty his bladder. It was again removed on 04/06/2018 and he was able to void adequately. Specifically, on the morning of dismissal he was able to void 275 mL. Postvoid residual was estimated 125 mL by bladder scan. The following levels of functional competence are to be considered preliminary information. The reader is encouraged to refer to actual therapy notes and reports for specific details. The patient was followed by physical therapy while on acute inpatient rehabilitation. At the conclusion of his stay, the following functional competencies were identified: He was able to transfer to and from bed and chair at modified independent level. He was able to perform car transfers with standby assist of 1 person. He was able to ambulate 445 feet with a front- wheeled walker quite safely. He did extremely well with regard to functional improvement. The patient was followed by occupational therapy while on acute inpatient rehabilitation. At the conclusion of his stay, the following functional competencies were identified: He was able to perform bathing and upper body dressing with only standby assistance. Lower body dressing required minimal assistance. He was able to transfer to and from bed and chair at modified independent level. The patient is felt to be stable for return to his home with home health assistance. Recommendations were made for him to follow-up with Judson Iniguez APRN as well as Dr. Campoverde in [place]. He will also follow-up with Dr. Matt Gonzalez for cardiology. Please note that he is newly on amiodarone 200 mg daily and that he has had hypotension with metoprolol which he is currently not taking. In addition please note that he requires follow-up TSH in 4-6 weeks. He was not sent home with any pain medication apart from Tylenol. Hospital course: Plan - 03/29/18: Agree with admission to IRU for continued strengthening and improvement in functional abilities. Therapy and pain control orders per Dr. Montero. Hospitalist service consulted for medical management. Continue home medications. Hemoglobin 8.6 on admission. Post-op anemia with recent blood transfusion following TUR of bladder tumor. Monitor hemoglobin closely. Prealbumin low at 9.3 (moderate protein calorie malnutrition). Dietary consulted for recommendations. Rudolph catheter in place. Instructions to keep Rudolph in place until 03/30 or per surgeon recommendations. Monitor output closely. Occasional tachycardia with irregular rhythm on exam. No history of arrhythmia or a-fib. Will obtain EKG now. Will check TSH in AM and continue to monitor closely. Patient is asymptomatic. Will recheck labs in AM and monitor periodically throughout admission to monitor blood counts, electrolytes and renal function. Upon discharge, patient's care will be returned to Dr. Kam. 03/30/18 Hemoglobin 8.6 on admission, stable today at 8.6. Post-op anemia with recent blood transfusion following TUR of bladder tumor. Monitor hemoglobin closely. Rudolph catheter in place. Instructions to keep Rudolph in place until 03/30 or per surgeon recommendations. Monitor output closely. Start bladder training today. Plan to remove catheter tomorrow if all goes well. Paroxysmal atrial flutter and one episode of V. tach with no history of arrhythmia or a-fib. Patient is asymptomatic. Hold off on anticoagulation as patient has postop anemia and is still having hematuria from recent surgery. Potassium 3.1 this a.m., patient given 40 mEq. Level was repeated after patient had run of V. tach this afternoon, at that time potassium was 3.6. He was given another 40 mEq of potassium. Follow weights and I's and O's. He may benefit from a diuretic given his significant swelling, but given he is asymptomatic this time, will await cardiology recommendation. Magnesium 1.8. Following run of V. tach he was given 1 g of magnesium IV. TSH is slightly suppressed and free T4 is normal. Levothyroxine was decreased from 150 g to 125 g. Will need follow-up thyroid studies on outpatient basis in approximately 4-6 weeks. Dietitian has been consult regarding protein calorie malnutrition. Consult [place] cardiology for evaluation of paroxysmal atrial flutter and V. tach. Patient's veterinarian is Dr. Gonzalez. 04/03/18 Rudolph catheter removed 1300 on 04/01/18. Patient had minimal output remainder of the day and had 400 mL output following a straight catheter that evening. Throughout the day yesterday he was only voiding 50 mL at a time, thus, Rudolph was reinserted last night. Hemoglobin 9.4 -stable since his admission here. Dr. Carrillo saw patient on 03/31/18 and started him on amiodarone and metoprolol for his arrhythmias. AST and ALT were normal on admission. TSH is being followed as he is on replacement. He has been bradycardic last night and today, but asymptomatic. We'll continue to monitor. Potassium and magnesium levels are normal at this time. Plan - 04/06/18 Overall, Italo is doing well and medically stable. Anticipate discharge home on 04/07/18. Plan to remove Rudolph catheter today. Rudolph catheter removed 1300 on 04/01/18. Patient had minimal output remainder of the day and had 400 mL output following a straight catheter that evening and required replacement of the Rudolph due to retention. Monitor closely for signs of retention. Patient seen by Dr. Carrillo (cardiology). Amiodarone 200mg daily was initiated . Discussed with Dr. Carrillo today and he recommended continuation of amiodarone 200mg daily and to start metoprolol 25mg BID. Monitor closely as metoprolol was discontinued 04/03 after prior initiation led to transient hypotension. Continue to monitor closely on telemetry. 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 TSH low on admission at 0.08 with free T4 stable at 2.16. Home Synthroid decreased to 125 mcg daily. Patient to follow up as outpatient with PCP and recheck labs in 4-6 weeks. Patient to follow up with PCP and Dr. Gonzalez following discharge from IRU. Time spent with patient: greater than 35 minutes Resuscitation Status: Do Not Resuscitate Discharge Plan - Med Rec/Dispo Referrals/Follow Up: Patrice Campoverde MD [Other] (Call office for f/u 1-2 weeks after discharge for Urology appt. [facility] [address] [place] [address] Referral requested from previous Hospital stay.) Matt Gonzalez MD [Physician] - 2 Weeks (Call to schedule a follow up appointment as soon as possible.) Judson Iniguez APRN [Primary Care Provider] - (Judson Iniguez APRN on 04/11/18 at 1:30 pm for Hosp. follow-up [phone]. [facility] [address] [place] [address]) Prescriptions: New Levothyroxine Sodium [Synthroid] 125 mcg PO ACB #30 tab Magnesium Oxide [Magox] 400 mg PO BID #60 tab PEG 3350 17gm PACKET [Miralax] 17 gm PO DAILY packet Amiodarone [Pacerone] 200 mg PO DAILY #30 tab Menthol Cough Drops [Ricola Sf] 1 lozenge MM PRN PRN lozenge PRN Reason: Cough Acetaminophen 1 - 2 tab PO Q6H PRN #30 tab PRN Reason: Pain Continue Docusate Sodium [Colace] 1 cap PO BID Phenazopyridine HCl [Pyridium] 100 mg PO TID PRN PRN Reason: dysuria Oxybutynin IR [Ditropan] 5 mg PO TID PRN PRN Reason: Bladder Spasms Discontinued Hydrocodone/APAP 5/325 [[place] 5/325] 1 tab PO Q6H PRN PRN Reason: Pain Levothyroxine Tab [Synthroid] 150 mcg PO ACB - Disposition 01 Discharged Home, Self-Care - Dismissal Complete Discharge Instructions are:: Complete
[2018-04-07 15:27] VITALS: BP 98/57; RESP 18; TEMP 97.6; O2SAT 98
== END 2018-04-07 16:40 | disposition home health service (06) | DRG 949 ==
PROVIDERS: ADMIT Internal Medicine; ATTEND Internal Medicine